=== PATIENT | female | born 1955 | race Caucasian/White ===

== ENCOUNTER 2017-08-16 16:29 | Inpatient (IN) | payer MEDICARE, MEDICAID ==
[2017-08-16 17:25] LABS: #Basophils 0.1 thou/uL (0.0-0.2); #Eosinphils 0.2 thou/uL (0.0-0.7); #Lymphocytes 1.9 thou/uL (1.20-3.40); #Monocytes 0.5 thou/uL (0.11-0.59); %Basophils 1.3 % (0.0-1.0); %Eosinophils 5.3 % (0.0-10.0); %Lymphocytes 40.6 % (21.0-51.0); %Monocytes 10.2 % (0.0-10.0); %Neutrophils 42.6 % (42.0-75.0); Hemoglobin 9.1 g/dL (12.0-16.0); Mean Corpuscular HGB CONC 35.4 g/dL (32.0-36.0); Mean Corpuscular Hemoglobin 34.1 pg (27.0-31.0); Mean Corpuscular Volume 96.5 fl (81.0-99.0); Mean Platelet Volume 5.4 fL (7.4-10.4); Platelet Count 133 thou/uL (130-400); RBC Distribution Width 13.9 % (11.5-14.5); Red Blood Cell (RBC) Count 2.67 mill/uL (4.20-5.40); White Blood Cell (WBC) Count 4.6 thou/uL (4.8-10.8)
--- NOTE | 2017-08-16 17:25 | CT ---
CT BRAIN NONCONTRAST: HISTORY: A 61-year-old female with altered mental status. FINDINGS: There is no midline shift or any other mass effect. There is no evidence of acute intracranial hemor rhage, large cortical infarct, obstructive hydrocephalus, or extraaxial fluid collection. The calvar ium is intact. There is diffuse parenchymal volume loss. There are low attenuation areas in the whi te matter. These are nonspecific, but in a patient of this age, they are probably chronic ischemic w cathleen matter changes due to microvascular atherosclerosis. IMPRESSION: 1) No acute intracranial findings. 2) Involutional changes and chronic ischemic white matter changes. jn [] POS: [facility]
--- NOTE | 2017-08-16 17:33 | RAD ---
RADIOGRAPH CHEST 1 VIEW: Supine. HISTORY: A 61-year-old female with altered mental status. FINDINGS: There is no air space density or pulmonary edema. The lateral costophrenic angles are sharp. Supine positioning makes this study insensitive for pneumothorax detection. IMPRESSION: No acute pulmonary findings. thanh [] POS: [facility]
[2017-08-16 17:41] LABS: ALT (SGPT) 10 U/L (8-55); AST (SGOT) 34 U/L (5-34); Acetaminophen Less than 6.0 mcg/mL (10.0-30.0); Albumin 3.2 g/dL (3.5-5.0); Alcohol Less than 10 mg/dL (Less than 10); Alkaline Phosphatase 78 U/L (40-150); Anion Gap 10 mmol/L (10-20); BUN (Urea Nitrogen) 10 mg/dL (9.8-20.1); Bilirubin, Total 0.7 mg/dL (0.2-1.2); CK (CPK) 446 U/L (29-168); Calc. Creatinine Clearance 0 mL/min (70-130); Calcium 8.4 mg/dL (7.8-10.44); Carbon Dioxide 29 mmol/L (22-29); Chloride 103 mmol/L (98-107); Estimated GFR-MDRD 15; Glucose 135 mg/dL (70-105); Lipase 39 U/L (8-78); Magnesium 1.9 mg/dL (1.6-2.6); Potassium 3.3 mmol/L (3.5-5.1); Protein, Total 6.2 g/dL (6.0-8.3); Salicylate Less than 8.0 mg/dL (15.0-30.0); Sodium 139 mmol/L (136-145)
[2017-08-16 17:44] LABS: CKMB 1.4 ng/mL (0-6.6); Troponin I 0.038 ng/mL (< 0.028)
[2017-08-16] MEDS ORDERED: Magnesium Sulfate 2 GM/100 ML BAG ONE (18:42)
[2017-08-16 19:14] LABS: Bilirubin Negative (Negative); Blood, Urine Trace (Negative); Clarity CLEAR (Clear); Glucose, Urine (Dipstick) Negative (Negative); Leukocyte Small (Negative); Nitrite Negative (Negative); Protein, Urine (Dipstick) 30 mg/dL (Neg-Trace); Specific Gravity, Urine 1.009 (1.002-1.036); Urobilinogen 0.2 mg/dL (0.2-1.0)
[2017-08-16 19:18] LABS: Bacteria/HPF 2+ HPF (None Seen); Hyaline Casts/LPF 0-3 HYALINE CAST LPF (0-3 Hyaline); Pathc Cast-AUWi Flag 0.29 (0-2.49); RBC/HPF 0-3 HPF (0-3); Squamous Epithelial 0-3 HPF (0-3)
[2017-08-16 19:25] LABS: Amphetamine Not Detected (NotDetected); Barbiturates Screen Not Detected (NotDetected); Benzodiazepine Screen Not Detected (NotDetected); Cocaine Metabolite Screen Not Detected (NotDetected); Medtox Control Line Valid? VALID (VALID); Medtox Reader # READER 4; Methadone Not Detected (NotDetected); Methamphetamine Not Detected (NotDetected); Opiate Screen Not Detected (NotDetected); Oxycodone Screen Not Detected (NotDetected); Phencyclidine (PCP) Not Detected (NotDetected); THC/Cannabinoid Screen Not Detected (NotDetected); Tricyclic Screen Not Detected (NotDetected)
[2017-08-16 21:14] LABS: Troponin I 0.037 ng/mL (< 0.028)
[2017-08-16 22:41] VITALS: BMI 25.7
[2017-08-17 00:03] LABS: Troponin I 0.041 ng/mL (< 0.028)
--- NOTE | 2017-08-17 11:24 | HP ---
REASON FOR ADMISSION/CHIEF COMPLAINT: Unresponsive. Change in mental status. HISTORY OF PRESENT ILLNESS: Ms. Forrest is a 61-year-old female with past medical history of end-stage renal disease on hemodialysis, hypertension, and depression who was sent from dialysis [facility] because she was not responding. The patient also has not been eating well in the last few days. T here is some change in medications. The patient was sent to the emergency room because of change in mental status. In the ER, the roberts chapelen t was evaluated. The patient was unresponsive, but labs were normal except for a urinary tract infec tion. She was hemodynamically stable. She is being admitted. She got a dose of Levaquin and being admitted for further evaluation and management. PAST MEDICAL HISTORY: 1. End-stage renal disease on hemodialysis. 2. Diabetes mellitus. 3. Hypertension. 4. Anxiety disorder. 5. Major depression. 6. History of hepatic encephalopathy. 7. Protein calorie malnutrition. 8. Dementia. PAST SURGICAL HISTORY: 1. Status post hysterectomy. 2. Status post mastectomy. 3. Status post AV shunt. CURRENT MEDICATIONS: The patient is on Coreg 6.25 daily, diltiazem 180 mg daily, Pravachol 10 mg mila ly, Renvela 3200 mg daily, Namenda 5 mg b.i.d. She is also on trazodone 50 b.i.d. and Depakote 500 b .i.d., recently started on Prozac 20 mg daily. Her Zoloft dose has been decreased from 50 to 25 alysha ng tapered and discontinued, also lactulose 20 grams q.2 days, Remeron 30 mg at bedtime. ALLERGIES: Questionable for PENICILLIN. FAMILY HISTORY: Nothing of interest. SOCIAL HISTORY: The patient is a resident of [facility]. No history of smoking. No hist ory of alcohol or drug abuse. REVIEW OF SYSTEMS: Unable to obtain because of change in mental status. PHYSICAL EXAMINATION: GENERAL: The patient is awake now, but not able to give any fruitful history. The patient is awake, not very alert. VITAL SIGNS: Temperature 98, pulse 70, respiration 20, blood pressure 130/60. HEENT: Head is normocephalic, atraumatic. Pupils equal and reactive. Nasopharynx is pale and dry. Hard and soft palate, no lesions. SKIN: Skin turgor decreased. NECK: Supple. No JVD. LUNGS: Bilateral air entry present, no rales, no rhonchi. CARDIAC: S1, S2 regular. ABDOMEN: Soft, no distention, no tenderness. Normal bowel sounds. RECTAL EXAM: Deferred. EXTREMITIES: No edema. NEUROLOGIC: The patient is awake, not very alert. Motor system power 4/5 in all extremities. Deep tendon reflexes 2+ bilaterally. Plantar downgoing. Sensory intact. LABORATORY AND X-RAY FINDINGS: CBC shows WBC 4.6, hemoglobin 9, hematocrit 26, platelets 133. Metab olic panel: Sodium 139, potassium 3.3, chloride 103, CO2 of 20, urea nitrogen 10, creatinine 3.1, gl ucose 135, CPK of 446. CK-MB 1.4, troponin I 0.038, serum ammonia level was 123. Urinalysis: WBC 7 -10, urine bacteria 2+, toxicology screen negative. Chest x-ray negative. EKG shows normal sinus rhythm, no acute ST-T wave changes seen. CT of the bra in, no acute infarct or hemorrhage, no intracranial pathology acute. ASSESSMENT: 1. Encephalopathy, metabolic, possibly hepatic. 2. Urinary tract infection. 3. End-stage renal disease on hemodialysis. 4. Diabetes mellitus. 5. Hypertension. 6. Depression. PLAN: 1. Vital signs q.4 hours. 2. Activity: As tolerated. 3. Allergies: PENICILLIN. 4. Continue [facility] medications. Hold trazodone and Depakote. Will give 2 doses of lactulose today. 5. Levaquin 750 q.2 days IV piggyback.
[2017-08-17 11:27] LABS: HBSAg Index 0.12 S/CO (0-0.99); Hep B Surf Ag Non-Reactive S/CO (NonReactive)
[2017-08-17] MEDS ORDERED: Vancomycin HCl 1 GM in Premix Bag 1 BAG IVPB SCH (13:30)
[2017-08-17 13:42] LABS: Sodium 138 mmol/L (136-145)
[2017-08-17] MEDS: Sevelamer Carbonate 800 MG TAB PO SCH (17:20)
[2017-08-17] MEDS: Artificial Tears 18 DROP/0.9 ML EA EYE SCH (20:05)
[2017-08-17] MEDS: Atorvastatin Calcium 10 MG TAB PO SCH (20:05)
[2017-08-17] MEDS: Carvedilol 3.125 MG TAB PO SCH (20:05)
[2017-08-17] MEDS: Mirtazapine 30 MG TAB PO SCH (20:05)
--- NOTE | 2017-08-17 22:32 | CON ---
DATE OF CONSULTATION: 08/17/2017 CONSULTING PHYSICIAN: Dr. David Chadwick. REASON FOR CONSULTATION: End-stage renal disease evaluation and care. REASON FOR ADMISSION: Altered mentation. HISTORY OF PRESENT ILLNESS: This is a 61-year-old white female with history of end-stage renal disea se, type 2 diabetes, hypertension who came to the hospital with altered mentation and Nephrology was consulted, maintain hemodialysis. The patient is feeling better. She was seen during dialysis. No nausea, vomiting. No shortness of breath or chest pain. PAST MEDICAL HISTORY: Positive for end-stage renal disease, type 2 diabetes, hypertension, anxiety, hepatic encephalopathy, dementia. PAST SURGICAL HISTORY: Hysterectomy, mastectomy, dialysis shunt placement. HOME MEDICATIONS: Coreg, Cardizem, Pravachol, Renvela, Namenda, trazodone, Prozac, Depakote, Zoloft. ALLERGIES: PENICILLINS. FAMILY HISTORY: No history of kidney disease. SOCIAL HISTORY: No smoking, alcohol, or illicit drug abuse. REVIEW OF SYSTEMS: Could not be obtained due to altered mentation. PHYSICAL EXAMINATION: GENERAL: This is a well-built female in no apparent distress. VITAL SIGNS: Temperature 98.7, pulse 81, respiratory rate 18, blood pressure 130/61. HEENT: Atraumatic, normocephalic. Oral mucosa is moist. NECK: Supple, no masses. CARDIOVASCULAR: S1, S2. Rate and rhythm regular. RESPIRATORY: Clear. GASTROINTESTINAL: Abdomen is soft. MUSCULOSKELETAL: 1+ edema. DERMATOLOGIC: No skin rash. NEUROLOGIC: Confused. PSYCHIATRIC: Not assessed. LABORATORY DATA: Hemoglobin is 9.1, potassium 3.3, BUN is 10, creatinine is 3.1. ASSESSMENT AND PLAN: 1. End-stage renal disease. Continue on dialysis Wednesday, Wednesday, and Wednesday if tolerated. 2. Edema controlled. 3. Hypertension, stable. 4. Anemia. Plan is to continue on dialysis as tolerated. Thank you for the consult.
[2017-08-18] MEDS: Sevelamer Carbonate 800 MG TAB PO SCH ×3 (08:37→16:54)
[2017-08-18] MEDS: Folic Acid/Vit B Comp W-C PO SCH (08:37)
[2017-08-18] MEDS: Cinacalcet HCl 30 MG TAB PO SCH (08:37)
[2017-08-18] MEDS: Carvedilol 3.125 MG TAB PO SCH ×2 (08:37→21:10)
[2017-08-18] MEDS: FLUoxetine HCl 20 MG CAP PO SCH (08:37)
[2017-08-18] MEDS: Artificial Tears 18 DROP/0.9 ML EA EYE SCH ×2 (08:38→21:10)
--- NOTE | 2017-08-18 17:25 | PRG ---
DATE OF SERVICE: 08/18/2017 SUBJECTIVE: Patient was seen and examined at bedside and overnight events noted. Patient denies any shortness of breath or chest pain or palpitation. No history of nausea or vomiting or diarrhea or f ever or chills or cramps. OBJECTIVE: GENERAL: This is a well-built female, slightly confused. VITAL SIGNS: Temperature 99.3, pulse 72, respiratory rate 18, blood pressure 121/56. HEENT: Atraumatic, normocephalic. Oral mucosa is moist. NECK: Supple. CARDIOVASCULAR: S1, S2 heard. Rate and rhythm regular. RESPIRATORY: Clear to auscultation. GASTROINTESTINAL: Abdomen is soft. MUSCULOSKELETAL: No tenderness. No edema. DERMATOLOGIC: No skin rash. NEUROLOGIC: Confused. PSYCHIATRIC: Mood and affect normal. LABORATORY: Not done today. ASSESSMENT AND PLAN: 1. End-stage renal disease. We will continue on dialysis as tolerated. 2. Edema, controlled. 3. Hypertension, stable. 4. Anemia. Monitor hemoglobin. 5. We will add Epogen with dialysis. 6. We will have dialysis as tolerated. We will follow.
[2017-08-18] MEDS: Mirtazapine 30 MG TAB PO SCH (21:09)
[2017-08-18] MEDS: Divalproex Sodium 250 MG (DR) TAB PO SCH (21:10)
[2017-08-18] MEDS: Atorvastatin Calcium 10 MG TAB PO SCH (21:10)
--- NOTE | 2017-08-19 09:01 | PRG ---
DATE OF SERVICE: 08/19/2017. SUBJECTIVE: Patient was seen and examined at bedside and overnight events noted. Patient denies any shortness of breath or chest pain or palpitation. No history of nausea or vomiting or diarrhea or f ever or chills or cramps. OBJECTIVE: GENERAL: This is a well-built female in no apparent distress. VITAL SIGNS: Temperature 98.4, pulse 71, respiratory 14, blood pressure 110/50. HEENT: Atraumatic, normocephalic. Oral mucosa is moist. NECK: Supple. CARDIOVASCULAR: S1, S2 heard. Rate and rhythm regular. RESPIRATORY: Clear to auscultation. GASTROINTESTINAL: Abdomen is soft. MUSCULOSKELETAL: No tenderness, no edema. DERMATOLOGIC: No skin rash. NEUROLOGIC: Alert and awake and oriented x3. No focal neurologic deficits. Moving all the extremit ies. PSYCHIATRIC: Mood and affect normal. LABORATORY DATA: Not done today. ASSESSMENT AND PLAN: 1. End-stage renal disease. Continue on hemodialysis, tolerated Wednesday, Wednesday, Wednesday, but marline ent is off schedule during this week. Plan is to have dialysis today and then continue dialysis , Wednesday, and Wednesday. 2. Edema, controlled. 3. Hypertension, stable. 4. Anemia. Continue Epogen. 5. Altered mental status, better. 6. Continue on dialysis as tolerated. The patient was seen during dialysis today.
[2017-08-19] MEDS: Sevelamer Carbonate 800 MG TAB PO SCH ×3 (10:10→16:34)
[2017-08-19] MEDS: Divalproex Sodium 250 MG (DR) TAB PO SCH (10:10)
[2017-08-19] MEDS: Carvedilol 3.125 MG TAB PO SCH ×2 (10:10→21:54)
[2017-08-19] MEDS: FLUoxetine HCl 20 MG CAP PO SCH (11:48)
[2017-08-19] MEDS: Cinacalcet HCl 30 MG TAB PO SCH (11:48)
[2017-08-19] MEDS: Folic Acid/Vit B Comp W-C PO SCH (11:48)
[2017-08-19] MEDS: Artificial Tears 18 DROP/0.9 ML EA EYE SCH ×2 (11:49→21:54)
[2017-08-19] MEDS: Atorvastatin Calcium 10 MG TAB PO SCH (21:54)
[2017-08-19] MEDS: Mirtazapine 30 MG TAB PO SCH (22:18)
[2017-08-20] MEDS: Sevelamer Carbonate 800 MG TAB PO SCH ×3 (08:00→17:39)
[2017-08-20] MEDS: Folic Acid/Vit B Comp W-C PO SCH (11:12)
[2017-08-20] MEDS: Cinacalcet HCl 30 MG TAB PO SCH (11:12)
[2017-08-20] MEDS: Carvedilol 3.125 MG TAB PO SCH ×2 (11:13→20:27)
[2017-08-20] MEDS: FLUoxetine HCl 20 MG CAP PO SCH (11:15)
[2017-08-20] MEDS: Artificial Tears 18 DROP/0.9 ML EA EYE SCH ×2 (11:15→21:06)
--- NOTE | 2017-08-20 14:30 | PRG ---
DATE OF SERVICE: 08/20/2017 SUBJECTIVE: Patient was seen and examined at bedside and overnight events noted. Patient denies any shortness of breath or chest pain or palpitation. No history of nausea or vomiting or diarrhea or f ever or chills or cramps. OBJECTIVE: GENERAL: This is a well-built female in no apparent distress. VITAL SIGNS: Temperature 98.0, pulse 75, respiratory rate 18, blood pressure 119/59. HEENT: Atraumatic, normocephalic. Oral mucosa is moist. NECK: Supple. CARDIOVASCULAR: S1, S2 heard. Rate and rhythm regular. RESPIRATORY: Clear to auscultation. GASTROINTESTINAL: Abdomen is soft. MUSCULOSKELETAL: No tenderness. No edema. DERMATOLOGIC: No skin rash. NEUROLOGIC: Alert and awake and oriented x3. No focal neurologic deficits. Moving all the extremiti es. PSYCHIATRIC: Mood and affect normal. LABORATORY DATA: Not done today. ASSESSMENT AND PLAN: 1. End-stage renal disease. Continue on hemodialysis as tolerated. 2. Edema, controlled. 3. Hypertension. 4. Anemia, chronic. . 5. Plan is to continue dialysis as tolerated.
[2017-08-20] MEDS: Mirtazapine 15 MG TAB PO SCH (20:27)
[2017-08-20] MEDS: Atorvastatin Calcium 10 MG TAB PO SCH (20:27)
[2017-08-20] MEDS: traZODone HCl 50 MG TAB PO SCH (20:27)
[2017-08-21] MEDS: Sevelamer Carbonate 800 MG TAB PO SCH ×3 (08:00→16:57)
--- NOTE | 2017-08-21 10:06 | PRG ---
DATE OF SERVICE: 08/21/2017 SUBJECTIVE: Patient was seen and examined at bedside and overnight events noted. Patient denies any shortness of breath or chest pain or palpitation. No history of nausea or vomiting or diarrhea or fever or chills or cramps. OBJECTIVE: GENERAL: This is a well-built female, in no apparent distress VITAL SIGNS: Temperature 97.9, pulse 62, respiratory rate 20, blood pressure 103/63. HEENT: Atraumatic, normocephalic. Oral mucosa is moist NECK: Supple CARDIOVASCULAR: S1, S2 heard, Rate and rhythm regular. RESPIRATORY: Clear to auscultation. GASTROINTESTINAL: Abdomen is soft. MUSCULOSKELETAL: No tenderness. No edema. DERMATOLOGIC: No skin rash. NEUROLOGIC: Alert and awake and oriented x3. No focal neurologic deficits. Moving all the extremit ies. PSYCHIATRIC: Mood and affect normal. LABORATORY DATA: No labs done today. ASSESSMENT AND PLAN: 1. End-stage renal disease, continue on hemodialysis Wednesday, Wednesday, Wednesday, starting Wednesday. 2. Edema, controlled. 3. Hypertension, stable. 4. Anemia, chronic, continue Epogen. The patient seen during dialysis, tolerating. We will continue on dialysis as tolerated.
[2017-08-21] MEDS: Artificial Tears 18 DROP/0.9 ML EA EYE SCH ×3 (10:35→21:16)
[2017-08-21] MEDS: Cinacalcet HCl 30 MG TAB PO SCH (11:40)
[2017-08-21] MEDS: FLUoxetine HCl 20 MG CAP PO SCH (11:40)
[2017-08-21] MEDS: Carvedilol 3.125 MG TAB PO SCH ×2 (11:40→21:14)
[2017-08-21] MEDS: Folic Acid/Vit B Comp W-C PO SCH (11:41)
[2017-08-21] MEDS ORDERED: Insulin Regular 300 UNITS/3 ML VIAL SC PRN (16:53)
[2017-08-21] MEDS ORDERED: Dextrose 50% Abboject 50 ML SYRINGE IVP PRN (16:53)
[2017-08-21] MEDS ORDERED: Dextrose 5% in Water 1,000 ML IV PRN (16:53)
[2017-08-21] MEDS: traZODone HCl 50 MG TAB PO SCH (21:14)
[2017-08-21] MEDS: Atorvastatin Calcium 10 MG TAB PO SCH (21:14)
[2017-08-21] MEDS: Mirtazapine 15 MG TAB PO SCH (21:14)
[2017-08-22 05:06] LABS: #Basophils 0.1 thou/uL (0.0-0.2); #Eosinphils 0.6 thou/uL (0.0-0.7); #Lymphocytes 2.9 thou/uL (1.20-3.40); #Monocytes 0.8 thou/uL (0.11-0.59); #Neutrophils 1.9 thou/uL (1.40-6.50); %Basophils 1.2 % (0.0-1.0); %Eosinophils 9.9 % (0.0-10.0); %Monocytes 12.8 % (0.0-10.0); Mean Corpuscular HGB CONC 35.7 g/dL (32.0-36.0); Mean Corpuscular Hemoglobin 34.3 pg (27.0-31.0); Mean Platelet Volume 6.4 fL (7.4-10.4); Platelet Count 127 thou/uL (130-400); RBC Distribution Width 13.3 % (11.5-14.5); Red Blood Cell (RBC) Count 2.93 mill/uL (4.20-5.40); White Blood Cell (WBC) Count 6.3 thou/uL (4.8-10.8)
[2017-08-22 05:09] LABS: ALT (SGPT) 15 U/L (8-55); AST (SGOT) 34 U/L (5-34); Albumin 3.1 g/dL (3.5-5.0); Alkaline Phosphatase 85 U/L (40-150); Anion Gap 13 mmol/L (10-20); BUN (Urea Nitrogen) 31 mg/dL (9.8-20.1); Bilirubin, Total 0.7 mg/dL (0.2-1.2); Calc. Creatinine Clearance 10 mL/min (70-130); Calcium 8.5 mg/dL (7.8-10.44); Carbon Dioxide 31 mmol/L (22-29); Chloride 102 mmol/L (98-107); Estimated GFR-MDRD 7; Globulin 2.9 g/dL (2.4-3.5); Glucose 120 mg/dL (70-105); Potassium 3.9 mmol/L (3.5-5.1); Sodium 142 mmol/L (136-145)
[2017-08-22] MEDS: Sevelamer Carbonate 800 MG TAB PO SCH ×3 (07:45→17:49)
[2017-08-22] MEDS: Artificial Tears 18 DROP/0.9 ML EA EYE SCH ×2 (07:48→22:01)
[2017-08-22] MEDS: Cinacalcet HCl 30 MG TAB PO SCH (08:00)
[2017-08-22] MEDS: Carvedilol 3.125 MG TAB PO SCH ×2 (08:00→21:29)
[2017-08-22] MEDS: FLUoxetine HCl 20 MG CAP PO SCH (08:00)
[2017-08-22] MEDS: Folic Acid/Vit B Comp W-C PO SCH (08:00)
[2017-08-22] MEDS ORDERED: Albumin 25% 25 GM/100 ML BOT IVPB SCH (11:30)
--- NOTE | 2017-08-22 12:42 | PRG ---
DATE OF SERVICE: 08/22/2017 SUBJECTIVE: Patient was seen and examined at bedside and overnight events noted. Patient denies any shortness of breath or chest pain or palpitation. No history of nausea or vomiting or diarrhea or fever or chills or cramps. OBJECTIVE: GENERAL: The patient is a well-built white female, in no apparent distress, feeling better. VITAL SIGNS: Temperature 97.9, pulse 74, respiratory rate 18, blood pressure 86/50. HEENT: Atraumatic, normocephalic. Oral mucosa is moist NECK: Supple CARDIOVASCULAR: S1, S2 heard. Rate and rhythm regular. RESPIRATORY: Clear to auscultation. GASTROINTESTINAL: Abdomen is soft. MUSCULOSKELETAL: No tenderness. No edema. DERMATOLOGIC: No skin rash. NEUROLOGIC: Alert and awake and oriented x3. No focal neurologic deficits. Moving all the extremit ies. PSYCHIATRIC: Mood and affect normal. LABORATORY DATA: Potassium is 3.9, BUN 31, creatinine 6.3. ASSESSMENT AND PLAN: 1. End-stage renal disease. We will continue on dialysis Wednesday, Wednesday, and Wednesday. No dialysi s today. 2. Hypotension and we will use albumin. I agree with holding blood pressure medicines if tolerated. 3. Edema, controlled. 4. Anemia. Continue Epogen with dialysis. Plan is to continue on dialysis as tolerated. We will use albumin.
[2017-08-22] MEDS: Mirtazapine 15 MG TAB PO SCH (20:42)
[2017-08-22] MEDS: traZODone HCl 50 MG TAB PO SCH (20:42)
[2017-08-22] MEDS: Atorvastatin Calcium 10 MG TAB PO SCH (20:42)
[2017-08-23] MEDS ORDERED: Epoetin (ESRD) 20,000 UNITS/ML IVP SCH (09:00)
[2017-08-23] MEDS: Sevelamer Carbonate 800 MG TAB PO SCH ×3 (09:23→17:07)
[2017-08-23] MEDS: Artificial Tear Sol 15 ML BOT EA EYE SCH ×2 (09:24→09:40)
[2017-08-23] MEDS: Folic Acid/Vit B Comp W-C PO SCH (09:26)
[2017-08-23] MEDS: Carvedilol 3.125 MG TAB PO SCH (09:26)
[2017-08-23] MEDS: Cinacalcet HCl 30 MG TAB PO SCH (09:26)
[2017-08-23] MEDS: FLUoxetine HCl 20 MG CAP PO SCH (09:27)
--- NOTE | 2017-08-23 10:27 | PRG ---
DATE OF SERVICE: 08/23/2017 SUBJECTIVE: Patient was seen and examined at bedside and overnight events noted. Patient denies any shortness of breath or chest pain or palpitation. No history of nausea or vomitin g or diarrhea or fever or chills or cramps. OBJECTIVE: GENERAL: This is a well-built female, in no apparent distress. VITAL SIGNS: Temperature 98.2, pulse 74, respiratory rate 18, blood pressure 119/74. HEENT: Atraumatic, normocephalic. Oral mucosa is moist. NECK: Supple. CARDIOVASCULAR: S1 and S2 heard. Rate and rhythm regular. RESPIRATORY: Clear to auscultation. GASTROINTESTINAL: Abdomen is soft. MUSCULOSKELETAL: No tenderness. No edema. DERMATOLOGIC: No skin rash. NEUROLOGIC: Alert and awake and oriented x3. No focal neurologic deficits. Moving all the extremit ies. PSYCHIATRIC: Mood and affect normal. LABORATORY DATA: Not done today. ASSESSMENT AND PLAN: 1. End-stage renal disease, continue on dialysis Wednesday, Wednesday, and Wednesday. 2. Hypotension, use albumin p.r.n. 3. Edema, controlled. 4. Anemia, continue Epogen with dialysis. 5. Hold blood pressure medicines. We will have dialysis as tolerated.
[2017-08-23 16:56] VITALS: BP 110/51; TEMP 98.1
--- NOTE | 2017-08-24 16:56 | PQF ---
[employer] Match Up Worker Crystal Reports Winform ViewerSAMMIE MEDEIRSO VENKAT R MD [id number] CLINICAL DOCUMENTATION CLARIFICATION FORM: POST DISCHARGE Addendum to original discharge summary date: ____ Late entry note date: __ Please exercise your independent, professional judgment in responding to the clarification form. Clinical indicators are provided on the bottom of this form for your review. PLEASE CLARIFY THE ACUITY OF THE PROTEIN CALORIE MALNUTRITION. THANK YOU Please check appropriate box(s): [ y] Protein Calorie Malnutrition: [ y] Mild [ ] Moderate [ ] Severe [ ] Other Malnutrition (please specify) __ [ ] Underweight without malnutrition [ ] Cachexia [ ] Other diagnosis [ ] Unable to determine In addition, please specify: Present on Admission (POA): [y ] Yes [ ] No [ ] Unable to determine CLINICAL INDICATORS - SIGNS / SYMPTOMS / LABS BMI of __24.8 Two or More of the Following: Unintentional Insufficient Energy Intake Weight Loss Loss of Muscle Mass Loss of Subcutaneous Fat Localized/Generalized Fluid Accumulation Diminished Handgrip Strength RISK FACTORS Change in appetite / nausea / vomiting / diarrhea Inability to consume adequate caloric intake Chronic illness -ESRD Medication TREATMENT: Dietary consult Nutritional supplements Appetite stimulant - medication SAP Match Up Worker Crystal Reports Winform Viewer Moderate Malnutrition (in acute illness) Energy Intake: <75% of estimated energy requirement for > 7 days Weight Loss: 1-2%/1 week; 5%/ 1 month; 7.5%/3 months Other: mild body fat loss; mild muscle mass loss; mild fluid accumulation; Severe Malnutrition (in acute illness) Energy Intake: < 50% of estimated energy requirement for > 5 days Weight Loss: >1-2%/1 week; >5%/1 month; >7.5%/3 months Other: moderate body fat loss; moderate muscle mass loss; moderate- severe fluid accumulation; measurably reduced infrastructure developer strength Moderate Malnutrition (in chronic illness) Energy Intake: <75% of estimated energy requirement for >1 month Weight Loss: 5%/1 month; 7.5%/3 months; 10%/6 months; 20%/1 year Other: mild body fat loss; mild muscle mass loss; mild fluid accumulation Severe Malnutrition (in chronic illness) Energy Intake: <75% of estimated energy requirement for >1 month Weight Loss: >5%/1 month; >7.5%/3 months; >10%/6 months; >20%/1 year Other: severe body fat loss; severe muscle mass loss; severe fluid accumulation ; measurably reduced infrastructure developer strength (This form is maintained as a part of the permanent medical record) 2014 [employer]. All Rights Reserved Caitlin [email or web address] [phone] MTDD
== END 2017-08-23 17:09 | DRG 441 ==
LOC: ERS 16:29 → 2NO 21:10 → 2SW 08-17 11:52 → 2NO 08-17 12:04 → T4-B 08-20 16:07
PROVIDERS: ADMIT Internal Medicine; ATTEND Internal Medicine
PROC: 5A1D70Z Performance of Urinary Filtration, Intermittent, Less than 6 Hours Per Day (ICD-10-PCS; principal; 2017-08-17)
PROC: 5A1D70Z Performance of Urinary Filtration, Intermittent, Less than 6 Hours Per Day (ICD-10-PCS; 2017-08-19)
PROC: 5A1D70Z Performance of Urinary Filtration, Intermittent, Less than 6 Hours Per Day (ICD-10-PCS; 2017-08-23)
DX: K72.90 Hepatic failure, unspecified without coma (principal); G93.41 Metabolic encephalopathy; N18.6 End stage renal disease; N39.0 Urinary tract infection, site not specified; I12.0 Hypertensive chronic kidney disease with stage 5 chronic kidney disease or end stage renal disease; E46 Unspecified protein-calorie malnutrition; E44.1 Mild protein-calorie malnutrition; B96.89 Other specified bacterial agents as the cause of diseases classified elsewhere; E11.22 Type 2 diabetes mellitus with diabetic chronic kidney disease; E11.65 Type 2 diabetes mellitus with hyperglycemia; F32.9 Major depressive disorder, single episode, unspecified; I95.9 Hypotension, unspecified; D63.1 Anemia in chronic kidney disease; F41.9 Anxiety disorder, unspecified; Z99.2 Dependence on renal dialysis; Z79.4 Long term (current) use of insulin; Z68.24 Body mass index [BMI] 24.0-24.9, adult
CPT/HCPCS: 36415; 36416; 51701; 70450; 71045; 80053; 80164; 80306; 80307; 81003; 81015; 82140; 82553; 83605; 83690; 83735; 84295; 84443; 84484; 85025; 87040; 87086; 87149; 87340; 90935; 93005; 94640; 94760; 96365; 96367; A4216; A4353; G0257; J1956; J3370; J3475; P9047; Q4081

== ENCOUNTER 2017-09-20 09:56 | Emergency (ER) | payer MEDICARE, MEDICAID ==
[2017-09-20 10:33] LABS: Bilirubin Negative (Negative); Blood, Urine Trace (Negative); Clarity CLEAR (Clear); Glucose, Urine (Dipstick) Negative (Negative); Leukocyte Moderate (Negative); Nitrite Negative (Negative); Protein, Urine (Dipstick) 100 mg/dL (Neg-Trace); Urobilinogen 0.2 mg/dL (0.2-1.0)
[2017-09-20 10:34] LABS: Bacteria/HPF None Seen HPF (None Seen); Hyaline Casts/LPF 0-3 HYALINE CAST LPF (0-3 Hyaline); Squamous Epithelial 0-3 HPF (0-3)
--- NOTE | 2017-09-20 10:34 | RAD ---
PORTABLE CHEST: History: Mental status change. FINDINGS: Lungs appear clear. No infiltrate. Heart size upper normal. Vascular markings are prominent. IMPRESSION: No acute finding. No change from prior exam of 08-16-17. POS: [facility]
[2017-09-20 10:42] LABS: Renal Epithelial None Seen HPF (0-3); Transitional Epithelial NONE SEEN HPF (0-3)
[2017-09-20 11:06] LABS: #Eosinphils 0.1 thou/uL (0.0-0.7); #Monocytes 0.5 thou/uL (0.11-0.59); #Neutrophils 3.1 thou/uL (1.40-6.50); %Basophils 0.6 % (0.0-1.0); %Eosinophils 1.2 % (0.0-10.0); %Lymphocytes 34.7 % (21.0-51.0); %Monocytes 9.1 % (0.0-10.0); %Neutrophils 54.4 % (42.0-75.0); Hemoglobin 11.6 g/dL (12.0-16.0); Mean Corpuscular HGB CONC 35.2 g/dL (32.0-36.0); Mean Corpuscular Hemoglobin 34.3 pg (27.0-31.0); Mean Corpuscular Volume 97.5 fL (78.0-98.0); Mean Platelet Volume 6.3 fL (7.4-10.4); Platelet Count 171 thou/uL (130-400); RBC Distribution Width 13.2 % (11.5-14.5); Red Blood Cell (RBC) Count 3.37 mill/uL (4.20-5.40); White Blood Cell (WBC) Count 5.7 thou/uL (4.8-10.8)
--- NOTE | 2017-09-20 11:18 | CT ---
CT HEAD WITHOUT CONTRAST: Multiple axial tomograms are obtained through the head without IV enhancement. INDICATION: Mental status change. COMPARISON: 08/16/17. FINDINGS: The ventricles have normal size and position. No evidence of intracranial mass or hemorrhage. No ev idence of cortical infarct. There are mild to moderate chronic ischemic white matter changes which a ppear stable. IMPRESSION: No acute finding or significant interval change. POS: [facility]
[2017-09-20 11:26] LABS: ALT (SGPT) 14 U/L (8-55); AST (SGOT) 25 U/L (5-34); Albumin 3.5 g/dL (3.4-4.8); Alkaline Phosphatase 77 U/L (40-150); Anion Gap 14 mmol/L (10-20); BUN (Urea Nitrogen) 46 mg/dL (9.8-20.1); Bilirubin, Total 1.4 mg/dL (0.2-1.2); Calc. Creatinine Clearance 0 mL/min (70-130); Calcium 8.5 mg/dL (7.8-10.44); Carbon Dioxide 24 mmol/L (23-31); Chloride 108 mmol/L (98-107); Estimated GFR-MDRD 5; Globulin 2.8 g/dL (2.4-3.5); Glucose 135 mg/dL (80-115); Potassium 3.9 mmol/L (3.5-5.1); Protein, Total 6.3 g/dL (6.0-8.3); Sodium 142 mmol/L (136-145)
== END 2017-09-20 15:52 ==
LOC: ERS 09:56
DX: N39.0 Urinary tract infection, site not specified (principal); R41.82 Altered mental status, unspecified; I12.0 Hypertensive chronic kidney disease with stage 5 chronic kidney disease or end stage renal disease; E11.22 Type 2 diabetes mellitus with diabetic chronic kidney disease; E78.5 Hyperlipidemia, unspecified; F41.9 Anxiety disorder, unspecified; F31.9 Bipolar disorder, unspecified; N18.6 End stage renal disease; Z99.2 Dependence on renal dialysis; Z86.74 Personal history of sudden cardiac arrest; Z79.899 Other long term (current) drug therapy
CPT/HCPCS: 36415; 51701; 70450; 71045; 80053; 81003; 81015; 83605; 85025; 87040; 87086; 93005; 96361; 96365; A4353; J1956

== ENCOUNTER 2017-09-22 12:21 | Inpatient (IN) | payer MEDICARE, MEDICAID ==
--- NOTE | 2017-09-22 13:25 | CT ---
CT HEAD NONCONTRAST: Date: 09/22/17 CLINICAL HISTORY: Altered mental status. FINDINGS: There is mild chronic microvascular ischemic disease. No ventriculomegaly, mass effect, midline shift , or acute intracranial hemorrhage. There is no fluid level of the imaged paranasal sinuses. IMPRESSION: 1. No acute intracranial hemorrhage or mass effect. 2. Mild to moderate chronic microvascular ischemic disease. 3. No significant interval change when compared to 09/20/17 exam. POS: [facility]
--- NOTE | 2017-09-22 13:27 | RAD ---
PORTABLE CHEST: HISTORY: Altered mental status. Patient at dialysis became unresponsive. COMPARISON: 09/20/17 study. FINDINGS: Heart size appears slightly enlarged. Mediastinal structures are unremarkable. The lungs are clear of infiltrates. No signs of failure. IMPRESSION: Mild cardiomegaly. POS: [facility]
[2017-09-22 13:46] LABS: #Basophils 0.1 thou/uL (0.0-0.2); #Eosinphils 0.1 thou/uL (0.0-0.7); #Monocytes 0.6 thou/uL (0.11-0.59); #Neutrophils 3.3 thou/uL (1.40-6.50); %Eosinophils 1.9 % (0.0-10.0); %Lymphocytes 32.7 % (21.0-51.0); %Monocytes 9.9 % (0.0-10.0); %Neutrophils 54.6 % (42.0-75.0); Hemoglobin 11.1 g/dL (12.0-16.0); Mean Corpuscular HGB CONC 34.6 g/dL (32.0-36.0); Mean Corpuscular Hemoglobin 34.7 pg (27.0-31.0); Mean Platelet Volume 6.9 fL (7.4-10.4); Platelet Count 157 thou/uL (130-400); RBC Distribution Width 12.8 % (11.5-14.5); Red Blood Cell (RBC) Count 3.21 mill/uL (4.20-5.40); White Blood Cell (WBC) Count 6.1 thou/uL (4.8-10.8)
[2017-09-22 13:59] LABS: ALT (SGPT) 13 U/L (8-55); AST (SGOT) 26 U/L (5-34); Albumin 3.5 g/dL (3.4-4.8); Alkaline Phosphatase 73 U/L (40-150); Anion Gap 16 mmol/L (10-20); BUN (Urea Nitrogen) 63 mg/dL (9.8-20.1); Bilirubin, Total 1.6 mg/dL (0.2-1.2); Calc. Creatinine Clearance 0 mL/min (70-130); Calcium 8.5 mg/dL (7.8-10.44); Carbon Dioxide 19 mmol/L (23-31); Chloride 117 mmol/L (98-107); Estimated GFR-MDRD 4; Globulin 2.5 g/dL (2.4-3.5); Glucose 158 mg/dL (80-115); Sodium 148 mmol/L (136-145)
[2017-09-22 14:55] LABS: Bilirubin Negative (Negative); Blood, Urine Trace (Negative); Clarity CLEAR (Clear); Glucose, Urine (Dipstick) Negative (Negative); Leukocyte Small (Negative); Nitrite Negative (Negative); Protein, Urine (Dipstick) 100 mg/dL (Neg-Trace); Specific Gravity, Urine 1.011 (1.002-1.036); Urobilinogen 0.2 mg/dL (0.2-1.0); pH, Urine 7.5 (5.0-9.0)
[2017-09-22 14:58] LABS: Bacteria/HPF None Seen HPF (None Seen); Hyaline Casts/LPF 4-6 HYALINE CAST LPF (0-3 Hyaline); Pathc Cast-AUWi Flag 0.87 (0-2.49); RBC/HPF 0-3 HPF (0-3); Squamous Epithelial 0-3 HPF (0-3); WBC/HPF 21-50 HPF (0-3)
--- NOTE | 2017-09-23 06:01 | HP ---
DATE OF ADMISSION: 09/22/2017 REASON FOR ADMISSION AND CHIEF COMPLAINT: Altered mental status. HISTORY OF PRESENT ILLNESS: Ms. Forrest is a 62-year-old, white female with past medical history of end-stage renal disease on hemodialysis, hypertension, who was brought in because of change in mental status, and patient has been having this problem for the last 2-3 days. She was seen in the ER 2 days ago and released after evaluation. Patient was confused and with mental status, so she was sent from dialysis. In the ER, patient was evaluated and found to be very confused and also was found to have urinary tract infection and elevated ammonia level. Patient received IV fluid bolus 500 mL and lactulose one dose. Patient is admitted for further evaluation. Patient was recently in the hospital with altered mental status secondary to ammonemia. PAST MEDICAL HISTORY: 1. End-stage renal disease, on hemodialysis. 2. Diabetes mellitus. 3. Hypertension. 4. Anxiety disorder. 5. History of encephalopathy secondary to ammonemia. 6. Protein-calorie malnutrition. 7. Dementia. PAST SURGICAL HISTORY: 1. Status post hysterectomy. 2. Status post mastectomy. 3. Status post AV stent. CURRENT MEDICATIONS: Patient is on folic acid 1 mg daily, pravastatin 10 mg daily, Namenda 5 mg daily, , trazodone 50 at bedtime, Sensipar 30 mg daily, Remeron 15 mg at bedtime, Prozac 20 mg daily, lactulose 20 grams every other day , and Procrit p.r.n. ALLERGIES: No known drug allergies. FAMILY HISTORY: Nothing of interest. SOCIAL HISTORY: Patient lives in the long-term. No history of smoking. No history of alcohol intake. REVIEW OF SYSTEMS: Unable to obtain. Patient is confused and unable to give any history. PHYSICAL EXAMINATION: VITAL SIGNS: Temperature 98, pulse 70, respirations 20, blood pressure 120/80. HEENT: Head is normocephalic, atraumatic. Pupils equal and reactive to light. Nasopharynx is pale and dry, hard and soft palate, no lesions seen. SKIN: Skin turgor decreased. NECK: Supple. No JVD. LUNGS: Breath sounds diminished bilaterally. Percussion not dull bilaterally. No rales, no rhonchi. CARDIAC: S1, S2 regular. ABDOMEN: Soft, no distention, no tenderness. Normal bowel sounds. RECTAL: Deferred. CENTRAL NERVOUS SYSTEM: Patient is awake, but not very alert and not oriented. MOTOR SYSTEM: Patient moves all extremities. Deep tendon reflexes 2+ bilaterally. Plantar downgoing. Sensory intact. LABORATORY AND X-RAY FINDINGS: CBC shows WBC 6, hemoglobin 11, hematocrit 32, platelets 157. Metabolic panel: Sodium 148, potassium 4, chloride 117, CO2 of 19, BUN 63, creatinine 1.9, glucose 158. Ammonia level 96. BNP 1267. Urinalysis revealed wbc 21-50, bacteria none. Chest x-ray negative. ASSESSMENT: 1. Acute metabolic encephalopathy possibly due to elevated ammonia. 2. Urinary tract infection. 3. End-stage renal disease, on hemodialysis. 4. Hypertension. 5. Diabetes mellitus. 6. Dementia. PLAN: 1. Vital signs q.4 hours. 2. Activity: As tolerated. 3. Allergies: NKDA. 4. Hep-Lock. 5. Lactulose 20 grams b.i.d. 6. List her long-term medications. 7. Rocephin 1 gram IV piggyback daily. 8. We will continue her long-term medication. [facility]
[2017-09-23] MEDS ORDERED: cefTRIAXone\\ROCEPHIN 1 GM in Sodium Chloride 0.9% 100 ML IVPB SCH (09:15)
[2017-09-23] MEDS: Dextrose 5 %-0.45 % NaCl 1,000 ML IV SCH (20:18)
--- NOTE | 2017-09-24 09:00 | CON ---
DATE OF CONSULTATION: 09/23/2017 CONSULTING PHYSICIAN: David Chadwick MD REASON FOR CONSULTATION: End-stage renal disease evaluation. REASON FOR ADMISSION: Altered mentation. HISTORY OF PRESENT ILLNESS: A 62-year-old female with a history of end-stage renal disease, type 2 diabetes, hypertension who came to the hospital with altered mentation. Nephrology was consulted for maintenance hemodialysis. She gets dialysis Wednesday, Wednesday, Wednesday. No fever or chills. No nausea, vomiting. No chest pain reported. PAST MEDICAL HISTORY: Possible end-stage renal disease, type 2 diabetes, hypertension, anxiety, encephalopathy, protein energy malnutrition, dementia. PAST SURGICAL HISTORY: Hysterectomy, mastectomy, AV fistula placement. HOME MEDICATIONS: Folic acid, pravastatin, Namenda, trazodone, Sensipar, Remeron, Prozac, lactulose, Procrit. ALLERGIES: No known drug allergies. SOCIAL HISTORY: No smoking, alcohol, or illicit drug abuse. She lives in a senior care. FAMILY HISTORY: No history of any kidney disease. REVIEW OF SYSTEMS: Unable to obtain as the patient is confused. PHYSICAL EXAMINATION: GENERAL: This is a well-built female in no apparent distress. VITAL SIGNS: Temperature 98.4, pulse 75, respiratory rate 18, blood pressure 134/80. HEENT: Atraumatic, normocephalic. Oral mucosa is moist. NECK: Supple. No masses. CARDIOVASCULAR: S1, S2 heard. Rate and rhythm regular. RESPIRATORY: Clear. ABDOMEN: Soft. MUSCULOSKELETAL: 1+ edema. DERMATOLOGIC: No skin rash. NEUROLOGIC: Confused. LABORATORY DATA: Hemoglobin is 11.1. BUN is 63, creatinine is 9.01. ASSESSMENT AND PLAN: 1. End-stage renal disease. Continue dialysis as tolerated. 2. Edema, controlled. 3. Hypertension. Titrate medications. 4. Anemia, stable. Plan is to continue on dialysis Wednesday, Wednesday, and Wednesday as tolerated. MTDD
[2017-09-24] MEDS ORDERED: hydrALAZINE 20 MG/ML VIAL SLOW IVP PRN (09:44)
--- NOTE | 2017-09-24 13:46 | PRG ---
DATE OF SERVICE: 09/24/2017. SUBJECTIVE: The patient remains confused and not able to give good history. OBJECTIVE: GENERAL: This is an elderly female, confused. VITAL SIGNS: Temperature 98.4, pulse 72, respiratory rate 16, blood pressure 163/77. NEUROLOGIC: Confused. Musculoskeletal : No tenderness, No edema HEENT: Atraumatic normocephalic Neck: Supple Cardiovascular: S1S2 heard, Rate and rhythm regular Respiratory: Clear to auscultation Gastrointestinal: Abdomen is soft Dermatologic : No skin rash LABORATORY DATA: Not done today. ASSESSMENT AND PLAN: 1. End-stage renal disease. We will continue on dialysis. 2. Edema, remove fluid with HD if tolerated. 3. Hypertension, will monitor. 4. Anemia. Monitor. 5. Altered mentation We will continue dialysis as tolerated on Wednesday, Wednesday, and Wednesday. MTDD
[2017-09-24] MEDS: Dextrose 5 %-0.45 % NaCl 1,000 ML IV SCH (15:43)
[2017-09-24] MEDS ORDERED: Lorazepam 2 MG/ML VIAL ONE (18:27)
[2017-09-24] MEDS ORDERED: Ventilator Sedation Protocol 1 EACH FS SCH (18:46)
[2017-09-24] MEDS ORDERED: Propofol 1,000 MG/100 ML VIAL IV ONE (18:53)
[2017-09-24] MEDS ORDERED: fentaNYL Citrate/PF 2,000 MCG in Sodium Chloride 0.9% 60 ML IV SCH (19:02)
[2017-09-24] MEDS ORDERED: Lorazepam 2 MG/ML VIAL SLOW IVP PRN (19:02)
[2017-09-24] MEDS ORDERED: Propofol 1,000 MG/100 ML VIAL IV PRN (19:02)
[2017-09-24] MEDS ORDERED: DISCONTINUE PREVIOUS NARCOTIC PAIN MEDICATIONS AND BENZODIAZEPINES FS SCH (19:02)
[2017-09-24] MEDS ORDERED: Fentanyl BOLUS 250 ML IVPB PRN (19:02)
[2017-09-24] MEDS ORDERED: Propofol BOLUS 1,000 MG/100 ML VIAL IV PRN (19:02)
[2017-09-24 19:08] LABS: Hemoglobin 12.1 g/dL (12.0-16.0); Mean Corpuscular Volume 99.9 fL (78.0-98.0); Platelet Count 188 thou/uL (130-400); RBC Distribution Width 12.7 % (11.5-14.5); Red Blood Cell (RBC) Count 3.57 mill/uL (4.20-5.40); White Blood Cell (WBC) Count 18.3 thou/uL (4.8-10.8)
[2017-09-24 19:21] LABS: CO2 Tension 31.4 mmHg (35.0-45.0); pH, Arterial 7.35 (7.35-7.45)
[2017-09-24 19:22] LABS: Base Excess (BEa) -7.5 mEq/L (-2.0 to +3.0); O2 Tension (PaO2) 527.2 mmHg (> 80.0)
[2017-09-24 19:23] LABS: Analyzer IN Cardio ER; Calcium, Ionized 1.1 mmol/L (1.12-1.30); Hematocrit-ABG 35.6 % (36.0-47.0); Hemoglobin (Hb) 11.8 g/dL (12.0-16.0); Puncture Site RRAD
[2017-09-24 19:24] LABS: ALT (SGPT) 15 U/L (8-55); AST (SGOT) 35 U/L (5-34); Albumin 3.9 g/dL (3.4-4.8); Alkaline Phosphatase 79 U/L (40-150); Anion Gap 28 mmol/L (10-20); BUN (Urea Nitrogen) 19 mg/dL (9.8-20.1); Bilirubin, Total 2.2 mg/dL (0.2-1.2); Calc. Creatinine Clearance 16 mL/min (70-130); Carbon Dioxide 12 mmol/L (23-31); Chloride 105 mmol/L (98-107); Eosinophils 2 % (0-10); Estimated GFR-MDRD 12; Globulin 3.1 g/dL (2.4-3.5); Glucose 136 mg/dL (80-115); Lymphocytes 53 % (21-51); MDiff Complete? YES; Magnesium 1.9 mg/dL (1.6-2.6); Monocytes 3 % (0-10); Neutrophil 42 % (42-75); PLT Morphology Comment Appears Adequate; Potassium 3.1 mmol/L (3.5-5.1); RBC Morphology Normal; Sodium 142 mmol/L (136-145)
[2017-09-24 19:26] LABS: CKMB 3.1 ng/mL (0-6.6)
--- NOTE | 2017-09-24 19:40 | RAD ---
PORTABLE AP CHEST X-RAY 09/24/17 HISTORY: Code blue, endotracheal tube placement. COMPARISON: 09/22/17. FINDINGS: There has been interval placement of endotracheal tube with the tip overlying the T5 vertebral body a nd above the level of the rosina. There has been interval placement of the nasogastric tube which is coiled overlying the left upper quadrant. The cardiac silhouette and pulmonary vasculature are within normal limits. The lungs are clear. there has been no interval change from prior exam. IMPRESSION: Interval placement of an endotracheal tube and nasogastric tube otherwise stable chest. POS: [facility]
--- NOTE | 2017-09-24 20:17 | CT ---
CT OF BRAIN PERFORMED WITHOUT CONTRAST ENHANCEMENT: 09/24/17 HISTORY: Seizure. COMPARISON: 09/22/17 study. Ventricular and cisternal system shows minimal atrophy. There is chronic white matter changes again n oted. There is no signs of intracerebral hemorrhage or extra-axial fluid collections. Mastoid air horace ls and visualized sinuses are clear. IMPRESSION: No acute intracranial abnormalities. POS: [facility]
[2017-09-24] MEDS ORDERED: Carvedilol 6.25 MG TAB PO SCH (21:00)
[2017-09-24] MEDS ORDERED: Pravastatin Sodium 20 MG TAB PO SCH (21:00)
[2017-09-24] MEDS ORDERED: Labetalol HCl 100 MG/20 ML VIAL SLOW IVP PRN (21:34)
[2017-09-24] MEDS: Cefepime 1 GM in Sodium Chloride 0.9% 100 ML IVPB SCH (22:54)
[2017-09-24 23:39] LABS: Lactic Acid 7.1 mmol/L (0.5-2.2)
--- NOTE | 2017-09-25 02:53 | PRG-2 ---
DATE OF SERVICE: 09/24/2017 RESIDENT: Anderson Garza M.D. ATTENDING: Sumeet Dawson D.O. EVENT: Code blue. EVENT IN DETAIL: Resident responded to code blue page that occurred overhead at 1825 hours at dialysis. When I arrived to the dialysis unit, the patient was actively seizing. Report from nursing stated that the patient had undergone approximately 3-1/2 hours of hemodialysis. Labs were all unremarkable and appropriate for end-stage renal patient. Nursing staff reported that the patient has had a similar experience with dialysis. An order for Ativan 2 mg IV push was given. The patient was nonresponsive and still seizing, decision was made to intubate for airway protection and mechanical ventilation. Dr. Dawson arrived prior to the intubation and was directly supervising during the intubation. In addition to the Ativan, the patient was paralyzed with rocuronium 60 mg fast IV push. A bougie catheter was inserted through the vocal cords under direct visualization and a 7.5 endotracheal tube was slid over the catheter to the level of 22 cm. Placement was verified with auscultation of the chest and color change capnography, both of which were positive. A post-procedure chest x-ray reveals endotracheal tube in adequate placement above the level of the rosina. An order for CBC, CMP, cardiac enzymes, lactic acid, ammonia level and prolactin were given. The patient was then transferred to the critical care unit for mechanical ventilation. Initial arterial blood gas revealed a pH of 7.35, pCO2 of 31.4, pO2 of 527 on 100% FiO2. After the blood gas was drawn, the respiratory therapist decreased the FiO2 to 40%. CT of the brain was ordered and showed no acute intracranial processes. PERTINENT LABORATORY FINDINGS: White count of 18.3 with no left shift. Potassium of 3.1. Lactic acid of 14.1. Ammonia level of 143, which was consistent with the previous level drawn earlier today. Dr. Chadwick is the patient's primary care provider in the hospital and was contacted by nursing staff. I personally called Dr. Valencia who was the on-call critical care finishing room operator and updated him on the patient's status. Dr. Valencia was in agreement with the care plan and stated he would see the patient in the morning unless he needed to see her sooner. [facility]
[2017-09-25 04:17] LABS: Anion Gap 18 mmol/L (10-20); BUN (Urea Nitrogen) 27 mg/dL (9.8-20.1); Calc. Creatinine Clearance 11 mL/min (70-130); Calcium 9.1 mg/dL (7.8-10.44); Carbon Dioxide 24 mmol/L (23-31); Chloride 102 mmol/L (98-107); Estimated GFR-MDRD 8; Glucose 137 mg/dL (80-115); Potassium 3.9 mmol/L (3.5-5.1); Sodium 140 mmol/L (136-145)
[2017-09-25 04:39] LABS: #Lymphocytes 2.1 thou/uL (1.20-3.40); #Neutrophils 6.1 thou/uL (1.40-6.50); %Basophils 0.5 % (0.0-1.0); %Eosinophils 0.3 % (0.0-10.0); %Lymphocytes 22.8 % (21.0-51.0); %Monocytes 10.5 % (0.0-10.0); %Neutrophils 65.9 % (42.0-75.0); Hemoglobin 12.1 g/dL (12.0-16.0); Mean Corpuscular HGB CONC 34.6 g/dL (32.0-36.0); Mean Corpuscular Hemoglobin 34.1 pg (27.0-31.0); Mean Corpuscular Volume 98.6 fL (78.0-98.0); Mean Platelet Volume 7.2 fL (7.4-10.4); Platelet Count 146 thou/uL (130-400); RBC Distribution Width 12.9 % (11.5-14.5); Red Blood Cell (RBC) Count 3.54 mill/uL (4.20-5.40); White Blood Cell (WBC) Count 9.2 thou/uL (4.8-10.8)
[2017-09-25] MEDS: Dextrose 5 %-0.45 % NaCl 1,000 ML IV SCH (06:06)
[2017-09-25 08:01] LABS: pH, Arterial 7.62 (7.35-7.45)
[2017-09-25 08:02] LABS: Actual Bicarbonate (HCO3a) 26.3 mEq/L (22-28); Base Excess (BEa) 5.8 mEq/L (-2.0 to +3.0); CO2 Tension 26.4 mmHg (35.0-45.0); O2 Tension (PaO2) 62.5 mmHg (> 80.0)
[2017-09-25 08:04] LABS: Hemoglobin (Hb) 12.1 g/dL (12.0-16.0); Puncture Site RBA
[2017-09-25] MEDS: Cefepime 1 GM in Sodium Chloride 0.9% 100 ML IVPB SCH ×2 (09:18→22:37)
--- NOTE | 2017-09-25 11:15 | EKG ---
Test Reason : Blood Pressure : / mmHG Vent. Rate : 069 BPM Atrial Rate : 069 BPM P-R Int : 166 ms QRS Dur : 088 ms QT Int : 454 ms P-R-T Axes : 055 024 101 degrees QTc Int : 486 ms Normal sinus rhythm Left ventricular hypertrophy with repolarization abnormality Abnormal ECG No ST elevation/NM Confirmed by THEA Henderson, JYOTHI ([id number]), index editor REGINA HERNANDES ([id number]) on 09/25/2017 11:14:40 AM Referred By: Confirmed By:JYOTHI SIDHU M.D.
--- NOTE | 2017-09-25 11:47 | PRG ---
DATE OF SERVICE: 09/25/2017 NEPHROLOGY PROGRESS NOTE SUBJECTIVE: Patient was seen and examined at ICU. The patient remains intubated and not well built. OBJECTIVE: GENERAL: A well-built female, seen in ICU, intubated. VITAL SIGNS: Temperature 98.7, pulse 73, respiratory rate 18, blood pressure 133/65. HEENT: Intubated. CARDIOVASCULAR: S1, S2 heard. Rate and rhythm regular. RESPIRATORY: Clear. GASTROINTESTINAL: Abdomen is soft. MUSCULOSKELETAL: 1+ edema. DERMATOLOGIC: No rash. NEUROLOGIC: Intubated, sedated. LABORATORY DATA: Potassium is 3.9, BUN 27, creatinine is 5.5. ASSESSMENT AND PLAN: 1. End-stage renal disease, continue on hemodialysis Wednesday, Wednesday, and Wednesday. 2. Edema, controlled. 3. Hypertension, stable. 4. Anemia. 5. Altered mentation. 6. Acute respiratory failure. 7. Intubated. 8. We will follow. We will continue dialysis Wednesday, Wednesday, and Wednesday as tolerated.
--- NOTE | 2017-09-25 17:23 | CON ---
DATE OF CONSULTATION: 09/24/2017 REFERRING PROVIDER: Dr. David Chadwick. REASON FOR CONSULTATION: Altered mental status. HISTORY OF PRESENT ILLNESS: Ms. Forrest is a pleasant 62-year-old -[place] female, who has bee n considered for evaluation of altered mental status. History is obtained from patient's medical marlon rt as patient unable to provide and there are no family member present at bedside. The patient has a history of hypertension, diabetes, end-stage renal disease on dialysis, was brought into the [facility] with confusion and changes in mentation. She was, in fact, seen in the ER 2 days prior to this admission for similar symptoms and at that time, she was found to have a urinary tract infect ion and an elevated ammonia level. She was treated with lactulose and antibiotics and discharged barbara e. Her symptoms had improved somewhat; however, she presented back again as her symptoms were contin ued to get worse. PAST MEDICAL HISTORY: Reviewed and they are as dictated in H&P note done by Dr. David Cahdwick. PAST SURGICAL HISTORY: Reviewed and they are as dictated in H&P note done by Dr. David Chadwick. FAMILY HISTORY: Reviewed and they are as dictated in H&P note done by Dr. David Chadwick. SOCIAL HISTORY: Reviewed and they are as dictated in H&P note done by Dr. David Chadwick. CURRENT MEDICATION: Reviewed and they are as dictated in H&P note done by Dr. David Chadwick. ALLERGIES: Reviewed and they are as dictated in H&P note done by Dr. David Chadwick. REVIEW OF SYSTEMS: Unable to perform. PHYSICAL EXAMINATION: VITAL SIGNS: Blood pressure 163/77, pulse of 72, temperature of 98.4, respirations of 16, O2 sats of 99% on room air. GENERAL: Obtunded -[place] female, in no apparent distress. RESPIRATORY: Clear to auscultation bilaterally. CARDIOVASCULAR: Regular rate and rhythm. NEUROLOGIC: Mental status: The patient is obtunded. She grimaces to verbal and noxious stimuli. S he does not follow any commands. Cranial nerves: Pupils are 3 mm and reactive. Face appears symmet dyan. The rest of the cranial nerve exam could not be performed as the patient is not able to comply. Motor exam showed normal tone and bulk. She spontaneously moves both upper and lower extremities. Sensory: Diminished sensation in both upper and lower extremities. Deep tendon reflexes 1+ reflex in both upper and lower extremities. Babinski: Plantar responses equivocal bilaterally. Gait, Romb erg and coordination could not be tested. LABORATORY DATA: Labs are reviewed, which included CBC, CMP, lactic acid, ammonia level which is sig nificant for hemoglobin of 12.1, hematocrit of 34.9, lactic acid of 14.1, ammonia level of 144, BNP o f 2486.1, otherwise unremarkable. IMAGING STUDIES: CT head without contrast which showed no acute intracranial abnormality. IMPRESSION: 1. Altered mental status, likely toxic metabolic encephalopathy. 2. Hyperlipidemia. ASSESSMENT AND PLAN: Ms. Forrest is a pleasant 62-year-old -[place] female with multiple medic al problems, who presented with confusion and altered mental status. She is found to have high level s of ammonia, which may be contributing to her confusion and decreased level of alertness. At this t adeline, we will recommend continuing lactulose. Thank you for consultation.
--- NOTE | 2017-09-25 19:25 | CON ---
DATE OF CONSULTATION: 09/25/2017 HISTORY OF PRESENT ILLNESS: Lindsey Forrest is a 62-year-old female, apparently demented. She is intu bated on the vent. Apparently, in dialysis yesterday, she seized and was intubated by Family Caroline aponte. She was transferred to the ICU. Her primary care physician has not seen her. Apparently, some c onversation occurred over the phone. She has been in the hospital since the . She presented with altered mental status and worsening renal failure. She has a longstanding history of mental problems. PAST MEDICAL HISTORY: Depression; renal failure, on dialysis; hypertension; substance abuse; noncomp liance. PAST SURGICAL HISTORY: Hysterectomy; mastectomy access. MEDICATIONS: Her list of medicine from home includes trazodone 50, Zoloft 100, Pravachol 10, Namenda 5, insulin, Cardizem 180, Coreg 6.25. ALLERGIES: PENICILLIN History of substance abuse from previous medical records. Alcohol unknown. Tobacco unknown. No family members here. REVIEW OF SYSTEMS: Otherwise unobtainable. PHYSICAL EXAMINATION: VITAL SIGNS: Pulse 77, blood pressure 124/68, sats 100%, respirations 14. GENERAL: She was on Diprivan, this has been withheld. She moves all 4 extremities. Encephalopathic . CHEST: Decreased breath sounds without any wheezing. CARDIAC: Normal S1 and S2. No gallops. ABDOMEN: Soft. NEUROLOGIC: She moves all 4 extremities. EXTREMITIES: No edema. LABORATORY DATA: PO2 is 62, pCO2 is 26, . ASSESSMENT AND PLAN: 1. Marked metabolic alkalosis. Vent is being adjusted. Creatinine is 5.4. Lactic acid elevated. Ammonia level is elevated. 2. Elevated ammonia. 3. Metabolic encephalopathy. 4. Seizure disorder. 5. Renal failure. 6. Dementia. Minimize sedation. Activate lactulose empiric antibiotics. Wean when stable. This is a 45-minutes critical care time.
[2017-09-26 08:42] LABS: Actual Bicarbonate (HCO3a) 30.8 mEq/L (22-28); Base Excess (BEa) 6.5 mEq/L (-2.0 to +3.0); Hemoglobin (Hb) 12.6 g/dL (12.0-16.0); O2 Tension (PaO2) 137.2 mmHg (> 80.0); pH, Arterial 7.47 (7.35-7.45)
[2017-09-26 08:44] LABS: Puncture Site RBA
[2017-09-26] MEDS ORDERED: DC Sedation Protocol FS ONE (08:57)
[2017-09-26] MEDS: Cefepime 1 GM in Sodium Chloride 0.9% 100 ML IVPB SCH ×2 (09:36→22:41)
[2017-09-26] MEDS ORDERED: Dextrose 50% Abboject 50 ML SYRINGE IVP PRN (13:35)
[2017-09-26] MEDS ORDERED: Dextrose 5% in Water 1,000 ML IV PRN (13:35)
--- NOTE | 2017-09-26 13:49 | PRG ---
DATE OF SERVICE: 09/26/2017 SUBJECTIVE: Patient was seen and examined at bedside and overnight events noted. Patient denies any shortness of breath or chest pain or palpitation. No history of nausea or vomiting or diarrhea or f ever or chills or cramps. OBJECTIVE: GENERAL: This is a well-built female in no apparent distress. VITAL SIGNS: Temperature 98.3, pulse 84, respiratory 18, blood pressure 130/60. HEENT: Atraumatic, normocephalic. Oral mucosa is moist. NECK: Supple. CARDIOVASCULAR: S1, S2 heard. Rate and rhythm regular. RESPIRATORY: Clear to auscultation. GASTROINTESTINAL: Abdomen is soft. MUSCULOSKELETAL: No tenderness. No edema. DERMATOLOGIC: No skin rash. NEUROLOGIC: Alert and awake and oriented x3. No focal neurologic deficits. Moving all the extremit ies. PSYCHIATRIC: Mood and affect normal. LABORATORY DATA: Potassium 3.9, BUN 27, creatinine is 5.4. ASSESSMENT AND PLAN: 1. End-stage renal disease, continue on dialysis Wednesday, Wednesday, and Wednesday. 2. Edema, . 3. Hypertension. 4. Anemia. 5. Altered mentation, better. 6. Extubated yesterday. We will continue on dialysis as tolerated.
--- NOTE | 2017-09-26 13:58 | PRG ---
DATE OF SERVICE: 09/26/2017 SUBJECTIVE: Lindsey Forrest this morning is awake, alert, responsive, denies any pain or discomfort, o ff sedation. PHYSICAL EXAMINATION: VITAL SIGNS: Pulse 83, blood pressure 150/66, sats 99%, respirations 17. NEUROLOGIC: Moves all 4 extremities. CHEST: Decreased breath sounds, bilateral rhonchi. CARDIAC: Normal S1, S2. No gallops. ABDOMEN: Soft. No masses. IMPRESSION: 1. Respiratory failure. 2. Seizure activity. 3. Metabolic encephalopathy. 4. Renal failure. PLAN: The patient will be weaned and extubated today. Continue Keparveenra. We will follow. One-half hour critical care time.
[2017-09-26] MEDS: Carvedilol 6.25 MG TAB PO SCH (16:35)
[2017-09-26] MEDS: levETIRAcetam 500 MG TAB PO SCH (22:40)
[2017-09-27 03:29] LABS: #Basophils 0.1 thou/uL (0.0-0.2); #Eosinphils 0.3 thou/uL (0.0-0.7); #Lymphocytes 2.5 thou/uL (1.20-3.40); #Monocytes 0.8 thou/uL (0.11-0.59); #Neutrophils 4.8 thou/uL (1.40-6.50); %Basophils 0.9 % (0.0-1.0); %Eosinophils 3.2 % (0.0-10.0); %Lymphocytes 29.7 % (21.0-51.0); %Monocytes 8.9 % (0.0-10.0); %Neutrophils 57.3 % (42.0-75.0); Hemoglobin 11.1 g/dL (12.0-16.0); Mean Corpuscular HGB CONC 34.9 g/dL (32.0-36.0); Mean Corpuscular Hemoglobin 34.3 pg (27.0-31.0); Mean Corpuscular Volume 98.2 fL (78.0-98.0); Mean Platelet Volume 7.2 fL (7.4-10.4); Platelet Count 124 thou/uL (130-400); RBC Distribution Width 12.3 % (11.5-14.5); Red Blood Cell (RBC) Count 3.24 mill/uL (4.20-5.40); White Blood Cell (WBC) Count 8.5 thou/uL (4.8-10.8)
[2017-09-27 03:37] LABS: Lactic Acid 1.5 mmol/L (0.5-2.2)
[2017-09-27 03:41] LABS: Anion Gap 20 mmol/L (10-20); BUN (Urea Nitrogen) 50 mg/dL (9.8-20.1); Calc. Creatinine Clearance 6 mL/min (70-130); Calcium 8.5 mg/dL (7.8-10.44); Carbon Dioxide 27 mmol/L (23-31); Chloride 99 mmol/L (98-107); Estimated GFR-MDRD 4; Glucose 114 mg/dL (80-115); Potassium 3.2 mmol/L (3.5-5.1); Sodium 143 mmol/L (136-145)
--- NOTE | 2017-09-27 08:09 | PRG ---
DATE OF SERVICE: 09/27/2017 This patient remains in the ICU. She is encephalopathic. She does not seem to be oriented to time o r place. PHYSICAL EXAMINATION: VITAL SIGNS: Temperature 97.0, pulse 85, blood pressure 126/63, 24-hour intake 985, output 1. HEENT: Unremarkable. NECK: No JVD. LUNGS: Clear. CARDIAC: S1 and S2 regular. ABDOMEN: Soft. EXTREMITIES: No edema. LABORATORY DATA: Sodium 143, potassium 3.2, chloride 99, CO2 27, BUN 50, creatinine 9.7, glucose 114 , white blood cell count 8.5, hematocrit 31.9, platelet count 124. ASSESSMENT: 1. Status post seizure. 2. Status post acute respiratory failure requiring mechanical ventilation - she had been intubated f or airway protection. 3. End-stage renal disease requiring hemodialysis. RECOMMENDATIONS: 1. Continue the lactulose for treatment of the elevated ammonia level. 2. Continue hemodialysis. 3. She is currently on cefepime. I am not quite sure of the indication for that. We will defer to primary care. 4. Okay to transfer to the floor from my standpoint.
[2017-09-27] MEDS: levETIRAcetam 500 MG TAB PO SCH ×2 (08:40→22:34)
[2017-09-27] MEDS: Carvedilol 6.25 MG TAB PO SCH ×2 (08:40→17:02)
[2017-09-27] MEDS: Cefepime 1 GM in Sodium Chloride 0.9% 100 ML IVPB SCH (09:28)
--- NOTE | 2017-09-27 10:55 | PRG ---
DATE OF SERVICE: 09/27/2017 SUBJECTIVE: This is a 62-year-old female being seen for end-stage renal disease. The patient denied any nausea, vomiting or chest pain. PHYSICAL EXAMINATION: GENERAL: Patient is awake, alert. VITAL SIGNS: Afebrile, pulse 70, breathing 16, blood pressure 99/46. OBJECTIVE: See above. Awake, alert, in no acute distress. GENERAL APPEARANCE AND MENTAL STATUS: Fair. HEAD/NECK: Normocephalic. Atraumatic. EYES: EOMI. No deformity. EARS: Clear. No ulcers. NOSE: Intact. No lesions. MOUTH: Clear. No discharge. THROAT: Clear. No exudate. LUNGS: Clear. No crackles. CARDIAC: S1, S2. No rub. ABDOMEN: Benign. BS+. GENITALIA/RECTUM: Bansal absent. BACK/EXTREMITIES: Edema 0+ Ulcer- NEUROLOGICAL: The patient is not ____. SKIN: Rash- Bruise- LYMPHATICS: Edema- Ulcer- LABORATORY: Hemoglobin 9.6. ASSESSMENT AND RECOMMENDATIONS: 1. Stage 6 chronic kidney disease. Continue hemodialysis. 2. Hypertension, stable. 3. Anemia, stable. 4. Hypokalemia, use 4K bath.
--- NOTE | 2017-09-28 07:07 | PDOC.PULPN ---
Progress Note: Subj/Obj - Subjective Date: 09/28/17 Time: 07:00 Narrative: Patient is A&Ox2 this AM. Denies pain, SOB, or distress. - Objective Allergies/Adverse Reactions: Allergies Allergy/AdvReac Type Severity Reaction Status Date / Time Penicillins Allergy Unknown Verified 09/22/17 21:28 Vital Signs: Vital Signs Temp 98.2 F 09/28/17 00:00 Pulse 67 09/27/17 19:37 Resp 17 09/27/17 19:37 BP 117/59 L 09/27/17 17:02 Pulse Ox 100 09/27/17 19:37 Intake & Output 09/27/17 09/28/17 09/28/17 18:59 06:59 18:59 Intake Total 100 240 Output Total 200 2 Balance -100 238 Intake: Intake, IV Amount 100 Cefepime 1 gm In Sodium 100 Chloride 0.9% 100 ml @ 200 mls/hr IVPB 1000,2200 W[facility] Rx#:[id number] Oral 240 Output: Urine 200 2 Other: Voiding Method Incontinent Incontinent # Urine Diapers 1 # Bowel Movements 3 1 # Bowel Movement Diapers 1 Progress Note: Data - Labs Result Diagrams: 09/27/17 02:57 09/27/17 02:57
--- NOTE | 2017-09-28 07:10 | PDOC.PULCC ---
<Juan Alberto Gama - Last Filed: 09/28/17 07:30> CCU Progress Note: Subj/Obj - Subjective Date: 09/28/17 Time: 07:00 Subjective: This is a 62 yo F who came in [place] for evaluation of AMS. She was found to have high levels of ammonia which are now improved with lactulose treatment. She did have a witnessed seizure during this stay. Was evaluated by Neurology, is on Keppra. This morning she is a A&Ox2. She does have a history of dementia. She denies pain or shortness of breath this morning. - ROS Review of Systems: Denies: cough, congestion, shortness of breath - Objective Allergies/Adverse Reactions: Allergies Allergy/AdvReac Type Severity Reaction Status Date / Time Penicillins Allergy Unknown Verified 09/22/17 21:28 Medications: Current Medications Carvedilol (Coreg) 6.25 mg PO BID-[facility] Last Admin: 09/27/17 17:02 Dose: Not Given Dextrose/Water (Dextrose 50%) 25 gm IVP PRN PRN PRN Reason: HYPOGLYCEMIA PROTOCOL Diltiazem HCl (Cardizem Cd) 180 mg PO DAILY [facility] Last Admin: 09/27/17 08:40 Dose: 180 mg Glucagon (Glucagon) 1 mg IM PRN PRN PRN Reason: HYPOGLYCEMIA PROTOCOL Dextrose/Water (D5w) 1,000 mls @ 0 mls/hr IV INF PRN; As Directed PRN Reason: HYPOGLYCEMIA PROTOCOL Insulin Human Regular (Humulin R) 0 units SC .MILD SLIDING PRN; Protocol PRN Reason: MILD SLIDING SCALE Labetalol HCl (Normodyne) 20 mg SLOW IVP Q4H PRN PRN Reason: SBP GREATER THAN 160 Lactulose (Lactulose) 40 gm PO BID [facility] Last Admin: 09/27/17 22:34 Dose: 40 gm Levetiracetam (Keppra) 500 mg PO BID [facility] Last Admin: 09/27/17 22:34 Dose: 500 mg Sodium Chloride (Flush - Normal Saline) 10 ml IVF Q12HR [facility] Last Admin: 09/27/17 22:35 Dose: 10 ml Sodium Chloride (Flush - Normal Saline) 10 ml IVF PRN PRN PRN Reason: Saline Flush MAR Reviewed: Yes Vital Signs and I&O: Vital Signs Temp 98.2 F 09/28/17 00:00 Pulse 67 09/27/17 19:37 Resp 17 09/27/17 19:37 BP 117/59 L 09/27/17 17:02 Pulse Ox 100 09/27/17 19:37 Intake & Output 09/27/17 09/28/17 09/28/17 18:59 06:59 18:59 Intake Total 100 240 Output Total 200 2 Balance -100 238 Intake: Intake, IV Amount 100 Cefepime 1 gm In Sodium 100 Chloride 0.9% 100 ml @ 200 mls/hr IVPB 1000,[facility] Rx#:[id number] Oral 240 Output: Urine 200 2 Other: Voiding Method Incontinent Incontinent # Urine Diapers 1 # Bowel Movements 3 1 # Bowel Movement Diapers 1 Vent Setting: Positive End Expiratory 5 Pressure % Fraction of Inspired Oxygen 35 (FIO2) CCU Progress Note: Exam - Physical Exam Constitutional: NAD HEENT: PERRLA, moist MMs Cardiovascular: RRR, no significant murmur Respiratory: clear to auscultation anteriorly. Denies: accessory muscle use, wheezes Gastrointestinal: soft, non-tender, positive bowel sounds Musculoskeletal: no edema, pulses present Neurological: non-focal, moves all 4 limbs Lymphatic: no nodes Skin: no rash, cap refill <2 seconds CCU Progress Note: Data - Labs Result Diagrams: 09/27/17 02:57 09/27/17 02:57 Lab results: Laboratory Results 09/25/17 09/26/17 09/26/17 22:47 06:43 07:25 WBC RBC Hgb Hct MCV MCH MCHC RDW Plt Count MPV Neutrophils % Lymphocytes % Monocytes % Eosinophils % Basophils % Neutrophils # Lymphocytes # Monocytes # Eosinophils # Basophils # Specimen Type ARTERIAL Puncture Site RBA Bicarbonate Actual 30.8 H ABG pH 7.47 H ABG pCO2 43.0 ABG pO2 137.2 H ABG O2 Sat Calc/Tyson 98.7 H ABG O2 Content 17.5 L ABG Base Excess 6.5 H ABG Hematocrit 37.0 ABG Hemoglobin 12.6 ABG Carboxyhemoglobin 1.0 ABG Methemoglobin 0.30 Landry Test NOT DONE A-a O2 Gradient 58.600 H Sodium 147 Potassium 3.3 L Chloride 99 Ionized Calcium 1.0 L Mode of Support SIMV/PSV Mechanical Rate 8 Inspired O2 35 Tidal Volume 450 Pressure Support 10 PEEP or CPAP 5.0 Carbon Dioxide Anion Gap BUN Creatinine Estimated GFR (MDRD) Glucose POC Glucose 123 H 125 H Lactic Acid Calcium Ammonia 09/26/17 09/26/17 09/27/17 10:58 15:46 02:57 WBC RBC Hgb Hct MCV MCH MCHC RDW Plt Count MPV Neutrophils % Lymphocytes % Monocytes % Eosinophils % Basophils % Neutrophils # Lymphocytes # Monocytes # Eosinophils # Basophils # Specimen Type Puncture Site Bicarbonate Actual ABG pH ABG pCO2 ABG pO2 ABG O2 Sat Calc/Tyson ABG O2 Content ABG Base Excess ABG Hematocrit ABG Hemoglobin ABG Carboxyhemoglobin ABG Methemoglobin Landry Test A-a O2 Gradient Sodium 143 Potassium 3.2 L Chloride 99 Ionized Calcium Mode of Support Mechanical Rate Inspired O2 Tidal Volume Pressure Support PEEP or CPAP Carbon Dioxide 27 Anion Gap 20 BUN 50 H Creatinine 9.70 H Estimated GFR (MDRD) 4 Glucose 114 POC Glucose 151 H 96 Lactic Acid Calcium 8.5 Ammonia 09/27/17 09/27/17 09/27/17 02:57 03:06 03:06 WBC 8.5 RBC 3.24 L Hgb 11.1 L Hct 31.9 L MCV 98.2 H MCH 34.3 H MCHC 34.9 RDW 12.3 Plt Count 124 L MPV 7.2 L Neutrophils % 57.3 Lymphocytes % 29.7 Monocytes % 8.9 Eosinophils % 3.2 Basophils % 0.9 Neutrophils # 4.8 Lymphocytes # 2.5 Monocytes # 0.8 H Eosinophils # 0.3 Basophils # 0.1 Specimen Type Puncture Site Bicarbonate Actual ABG pH ABG pCO2 ABG pO2 ABG O2 Sat Calc/Tyson ABG O2 Content ABG Base Excess ABG Hematocrit ABG Hemoglobin ABG Carboxyhemoglobin ABG Methemoglobin Landry Test A-a O2 Gradient Sodium Potassium Chloride Ionized Calcium Mode of Support Mechanical Rate Inspired O2 Tidal Volume Pressure Support PEEP or CPAP Carbon Dioxide Anion Gap BUN Creatinine Estimated GFR (MDRD) Glucose POC Glucose Lactic Acid 1.5 Calcium Ammonia 75 H 09/27/17 09/27/17 09/27/17 06:14 16:10 22:32 WBC RBC Hgb Hct MCV MCH MCHC RDW Plt Count MPV Neutrophils % Lymphocytes % Monocytes % Eosinophils % Basophils % Neutrophils # Lymphocytes # Monocytes # Eosinophils # Basophils # Specimen Type Puncture Site Bicarbonate Actual ABG pH ABG pCO2 ABG pO2 ABG O2 Sat Calc/Tyson ABG O2 Content ABG Base Excess ABG Hematocrit ABG Hemoglobin ABG Carboxyhemoglobin ABG Methemoglobin Landry Test A-a O2 Gradient Sodium Potassium Chloride Ionized Calcium Mode of Support Mechanical Rate Inspired O2 Tidal Volume Pressure Support PEEP or CPAP Carbon Dioxide Anion Gap BUN Creatinine Estimated GFR (MDRD) Glucose POC Glucose 101 113 H 96 Lactic Acid Calcium Ammonia - ABG Interpretation ABG Results: ABG pH 7.47 (7.35-7.45) H 09/26/17 07:25 ABG pCO2 43.0 mmHg (35.0-45.0) 09/26/17 07:25 ABG O2 Sat Calc/Tyson 98.7 % (94.0-98.0) H 09/26/17 07:25 ABG Base Excess 6.5 mEq/L (-2.0 to +3.0) H 09/26/17 07:25 CCU Progress Note: A/P - Problems (1) Altered mental status Current Visit: No Status: Acute Code(s): R41.82 - ALTERED MENTAL STATUS, UNSPECIFIED (2) Hemodialysis patient Current Visit: No Status: Acute Code(s): Z99.2 - DEPENDENCE ON RENAL DIALYSIS (3) Hyperammonemia Current Visit: No Status: Acute Code(s): E72.20 - DISORDER OF UREA CYCLE METABOLISM, UNSPECIFIED - Plan Plan: # Altered Mental Status - A&Ox2 today - improving with decreased ammonia levels - unsure of baseline at [place] - Neuro attributed AMS to hyperammonemia # ESRD requiring Dialysis - continue hemodialysis per Dr. Dobbs # Status post Seizure - cont Keppra Dispo: Ok for transfer to medical floor <Francisco Vargas - Last Filed: 09/28/17 07:53> CCU Progress Note: Subj/Obj - Objective Medications: Current Medications Carvedilol (Coreg) 6.25 mg PO BID-[facility] Last Admin: 09/27/17 17:02 Dose: Not Given Dextrose/Water (Dextrose 50%) 25 gm IVP PRN PRN PRN Reason: HYPOGLYCEMIA PROTOCOL Diltiazem HCl (Cardizem Cd) 180 mg PO DAILY [facility] Last Admin: 09/27/17 08:40 Dose: 180 mg Glucagon (Glucagon) 1 mg IM PRN PRN PRN Reason: HYPOGLYCEMIA PROTOCOL Dextrose/Water (D5w) 1,000 mls @ 0 mls/hr IV INF PRN; As Directed PRN Reason: HYPOGLYCEMIA PROTOCOL Insulin Human Regular (Humulin R) 0 units SC .MILD SLIDING PRN; Protocol PRN Reason: MILD SLIDING SCALE Labetalol HCl (Normodyne) 20 mg SLOW IVP Q4H PRN PRN Reason: SBP GREATER THAN 160 Lactulose (Lactulose) 40 gm PO BID [facility] Last Admin: 09/27/17 22:34 Dose: 40 gm Levetiracetam (Keppra) 500 mg PO BID [facility] Last Admin: 09/27/17 22:34 Dose: 500 mg Sodium Chloride (Flush - Normal Saline) 10 ml IVF Q12HR [facility] Last Admin: 09/27/17 22:35 Dose: 10 ml Sodium Chloride (Flush - Normal Saline) 10 ml IVF PRN PRN PRN Reason: Saline Flush Vital Signs and I&O: Vital Signs Temp 99 F 09/28/17 07:14 Pulse 89 09/28/17 07:14 Resp 24 H 09/28/17 07:14 BP 117/59 L 09/27/17 17:02 Pulse Ox 100 09/28/17 07:14 Intake & Output 09/27/17 09/28/17 09/28/17 18:59 06:59 18:59 Intake Total 100 240 Output Total 200 2 Balance -100 238 Intake: Intake, IV Amount 100 Cefepime 1 gm In Sodium 100 Chloride 0.9% 100 ml @ 200 mls/hr IVPB 1000,2200 [facility] Rx#:[id number] Oral 240 Output: Urine 200 2 Other: Voiding Method Incontinent Incontinent Diaper # Urine Diapers 1 # Bowel Movements 3 1 1 # Bowel Movement Diapers 1 Vent Setting: Positive End Expiratory 5 Pressure % Fraction of Inspired Oxygen 35 (FIO2) CCU Progress Note: Data - Labs Result Diagrams: 09/27/17 02:57 09/27/17 02:57 Lab results: Laboratory Results 09/25/17 09/26/17 09/26/17 22:47 06:43 07:25 WBC RBC Hgb Hct MCV MCH MCHC RDW Plt Count MPV Neutrophils % Lymphocytes % Monocytes % Eosinophils % Basophils % Neutrophils # Lymphocytes # Monocytes # Eosinophils # Basophils # Specimen Type ARTERIAL Puncture Site RBA Bicarbonate Actual 30.8 H ABG pH 7.47 H ABG pCO2 43.0 ABG pO2 137.2 H ABG O2 Sat Calc/Tyson 98.7 H ABG O2 Content 17.5 L ABG Base Excess 6.5 H ABG Hematocrit 37.0 ABG Hemoglobin 12.6 ABG Carboxyhemoglobin 1.0 ABG Methemoglobin 0.30 Landry Test NOT DONE A-a O2 Gradient 58.600 H Sodium 147 Potassium 3.3 L Chloride 99 Ionized Calcium 1.0 L Mode of Support SIMV/PSV Mechanical Rate 8 Inspired O2 35 Tidal Volume 450 Pressure Support 10 PEEP or CPAP 5.0 Carbon Dioxide Anion Gap BUN Creatinine Estimated GFR (MDRD) Glucose POC Glucose 123 H 125 H Lactic Acid Calcium Ammonia 09/26/17 09/26/17 09/27/17 10:58 15:46 02:57 WBC RBC Hgb Hct MCV MCH MCHC RDW Plt Count MPV Neutrophils % Lymphocytes % Monocytes % Eosinophils % Basophils % Neutrophils # Lymphocytes # Monocytes # Eosinophils # Basophils # Specimen Type Puncture Site Bicarbonate Actual ABG pH ABG pCO2 ABG pO2 ABG O2 Sat Calc/Tyson ABG O2 Content ABG Base Excess ABG Hematocrit ABG Hemoglobin ABG Carboxyhemoglobin ABG Methemoglobin Landry Test A-a O2 Gradient Sodium 143 Potassium 3.2 L Chloride 99 Ionized Calcium Mode of Support Mechanical Rate Inspired O2 Tidal Volume Pressure Support PEEP or CPAP Carbon Dioxide 27 Anion Gap 20 BUN 50 H Creatinine 9.70 H Estimated GFR (MDRD) 4 Glucose 114 POC Glucose 151 H 96 Lactic Acid Calcium 8.5 Ammonia 09/27/17 09/27/17 09/27/17 02:57 03:06 03:06 WBC 8.5 RBC 3.24 L Hgb 11.1 L Hct 31.9 L MCV 98.2 H MCH 34.3 H MCHC 34.9 RDW 12.3 Plt Count 124 L MPV 7.2 L Neutrophils % 57.3 Lymphocytes % 29.7 Monocytes % 8.9 Eosinophils % 3.2 Basophils % 0.9 Neutrophils # 4.8 Lymphocytes # 2.5 Monocytes # 0.8 H Eosinophils # 0.3 Basophils # 0.1 Specimen Type Puncture Site Bicarbonate Actual ABG pH ABG pCO2 ABG pO2 ABG O2 Sat Calc/Tyson ABG O2 Content ABG Base Excess ABG Hematocrit ABG Hemoglobin ABG Carboxyhemoglobin ABG Methemoglobin Landry Test A-a O2 Gradient Sodium Potassium Chloride Ionized Calcium Mode of Support Mechanical Rate Inspired O2 Tidal Volume Pressure Support PEEP or CPAP Carbon Dioxide Anion Gap BUN Creatinine Estimated GFR (MDRD) Glucose POC Glucose Lactic Acid 1.5 Calcium Ammonia 75 H 09/27/17 09/27/17 09/27/17 06:14 16:10 22:32 WBC RBC Hgb Hct MCV MCH MCHC RDW Plt Count MPV Neutrophils % Lymphocytes % Monocytes % Eosinophils % Basophils % Neutrophils # Lymphocytes # Monocytes # Eosinophils # Basophils # Specimen Type Puncture Site Bicarbonate Actual ABG pH ABG pCO2 ABG pO2 ABG O2 Sat Calc/Tyson ABG O2 Content ABG Base Excess ABG Hematocrit ABG Hemoglobin ABG Carboxyhemoglobin ABG Methemoglobin Landry Test A-a O2 Gradient Sodium Potassium Chloride Ionized Calcium Mode of Support Mechanical Rate Inspired O2 Tidal Volume Pressure Support PEEP or CPAP Carbon Dioxide Anion Gap BUN Creatinine Estimated GFR (MDRD) Glucose POC Glucose 101 113 H 96 Lactic Acid Calcium Ammonia - ABG Interpretation ABG Results: ABG pH 7.47 (7.35-7.45) H 09/26/17 07:25 ABG pCO2 43.0 mmHg (35.0-45.0) 09/26/17 07:25 ABG O2 Sat Calc/Tyson 98.7 % (94.0-98.0) H 09/26/17 07:25 ABG Base Excess 6.5 mEq/L (-2.0 to +3.0) H 09/26/17 07:25 CCU Progress Note: A/P - Plan Plan: Patient remains grossly encephalopathic, but is medically stable. She can be transferred to [facility] as she remains too confused for regular medical unit. Agree with A/P above. SES
[2017-09-28] MEDS: levETIRAcetam 500 MG TAB PO SCH ×2 (08:50→20:26)
[2017-09-28] MEDS: Carvedilol 6.25 MG TAB PO SCH ×2 (08:51→16:30)
[2017-09-28] MEDS ORDERED: Cefepime 1 GM in Sodium Chloride 0.9% 100 ML IVPB SCH (10:00)
[2017-09-28] MEDS: Insulin Regular 300 UNITS/3 ML VIAL SC PRN (11:03)
[2017-09-28 11:30] VITALS: BMI 23.1
--- NOTE | 2017-09-28 13:05 | PRG ---
DATE OF SERVICE: 09/28/2017 SUBJECTIVE: This is a 62-year-old female being seen for end-stage renal disease. The patient denies any nausea, vomiting, or chest pain. OBJECTIVE: GENERAL: The patient is awake, alert. VITAL SIGNS: Afebrile, pulse 89, breathing 16, blood pressure ____. GENERAL APPEARANCE AND MENTAL STATUS: Fair. HEAD/NECK: Normocephalic. Atraumatic. EYES: EOMI. No deformity. EARS: Clear. No ulcers. NOSE: Intact. No lesions. MOUTH: Clear. No discharge. THROAT: Clear. No exudate. LUNGS: Clear. No crackles. CARDIAC: S1, S2. No rub. ABDOMEN: Benign. BS+. GENITALIA/RECTUM: Bansal absent. BACK/EXTREMITIES: Edema 0+ Ulcer- NEUROLOGICAL: Alert and motor intact. SKIN: Rash- Bruise- LYMPHATICS: Edema- Ulcer- LABORATORY DATA: Show hemoglobin 11.1. ASSESSMENT AND RECOMMENDATIONS: 1. Stage ____ chronic kidney disease, continue on hemodialysis. 2. Hypertension, stable. 3. Anemia, stable. 4. Medications based on glomerular filtration rate are appropriate. We will plan dialysis tomorrow.
[2017-09-29 04:08] LABS: #Basophils 0.1 thou/uL (0.0-0.2); #Eosinphils 0.2 thou/uL (0.0-0.7); #Lymphocytes 2.4 thou/uL (1.20-3.40); #Neutrophils 5.3 thou/uL (1.40-6.50); %Basophils 0.7 % (0.0-1.0); %Eosinophils 2.7 % (0.0-10.0); %Lymphocytes 26.9 % (21.0-51.0); %Monocytes 11.3 % (0.0-10.0); %Neutrophils 58.4 % (42.0-75.0); Mean Corpuscular HGB CONC 34.8 g/dL (32.0-36.0); Mean Corpuscular Hemoglobin 33.4 pg (27.0-31.0); Mean Corpuscular Volume 96.2 fL (78.0-98.0); Mean Platelet Volume 6.9 fL (7.4-10.4); Platelet Count 146 thou/uL (130-400); RBC Distribution Width 12.5 % (11.5-14.5)
[2017-09-29 04:18] LABS: Anion Gap 19 mmol/L (10-20); BUN (Urea Nitrogen) 34 mg/dL (9.8-20.1); Calc. Creatinine Clearance 7 mL/min (70-130); Calcium 9.3 mg/dL (7.8-10.44); Carbon Dioxide 23 mmol/L (23-31); Chloride 105 mmol/L (98-107); Estimated GFR-MDRD 5; Glucose 117 mg/dL (80-115); Potassium 3.6 mmol/L (3.5-5.1); Sodium 143 mmol/L (136-145)
--- NOTE | 2017-09-29 07:54 | PRG ---
DATE OF SERVICE: 09/29/2017 The patient is more awake and little more conversant. She is partially oriented. PHYSICAL EXAMINATION: VITAL SIGNS: Temperature 98.8, pulse 69, blood pressure 118/47, 24 intake at least 480, output not m easured. She is in a diaper. HEENT: Unremarkable. NECK: No JVD. CHEST: Fairly clear without wheezing or rhonchi. CARDIAC: S1, S2 regular. ABDOMEN: Soft. EXTREMITIES: Trace edema. LABORATORY DATA: White blood cell count 9, hematocrit 34.6, platelet count 146. Sodium 143, potassi um 3.6, chloride 105, CO2 23, BUN 34, creatinine 7.9, glucose 117. ASSESSMENT: 1. Status post seizure. 2. Respiratory failure requiring mechanical ventilation. 3. End-stage renal disease requiring hemodialysis. 4. Improved encephalopathy. PLAN: The patient can transfer out to the medical floor. She will continue hemodialysis per the [facility] hrology team. There do not seem to be any acute pulmonary issues at this time.
[2017-09-29] MEDS: Carvedilol 6.25 MG TAB PO SCH ×2 (08:31→16:37)
[2017-09-29] MEDS: levETIRAcetam 500 MG TAB PO SCH ×2 (08:31→20:29)
--- NOTE | 2017-09-29 11:14 | PRG ---
DATE OF SERVICE: 09/29/2017 SUBJECTIVE: A 62-year-old female being seen for end-stage renal disease. The patient denies any marilyn sea, vomiting or chest pain. PHYSICAL EXAMINATION: GENERAL: Patient is awake. VITAL SIGNS: Afebrile, pulse 60, breathing 16, blood pressure 144/74. HEAD/NECK: Normocephalic. Atraumatic. EYES: EOMI. No deformity. EARS: Clear. No ulcers. NOSE: Intact. No lesions. MOUTH: Clear. No discharge. THROAT: Clear. No exudate. LUNGS: Clear. No crackles. CARDIAC: S1, S2. No rub. ABDOMEN: Benign. BS+. GENITALIA/RECTUM: Bansal absent. BACK/EXTREMITIES: Edema 0+ Ulcer- NEUROLOGICAL: Alert and motor intact. SKIN: Rash- Bruise- LYMPHATICS: Edema- Ulcer-. LABORATORY DATA: Show hemoglobin 12. ASSESSMENT AND RECOMMENDATIONS: 1. Stage 6 chronic kidney disease, plan dialysis. 2. Hypertension, stable. 3. Anemia, stable. 4. Dementia, progressively getting worse.
[2017-09-29] MEDS: Insulin Regular 300 UNITS/3 ML VIAL SC PRN (20:32)
[2017-09-30 04:54] LABS: Anion Gap 17 mmol/L (10-20); BUN (Urea Nitrogen) 14 mg/dL (9.8-20.1); Calc. Creatinine Clearance 13 mL/min (70-130); Calcium 9.2 mg/dL (7.8-10.44); Carbon Dioxide 24 mmol/L (23-31); Chloride 101 mmol/L (98-107); Estimated GFR-MDRD 9; Glucose 121 mg/dL (80-115); Potassium 3.3 mmol/L (3.5-5.1); Sodium 139 mmol/L (136-145)
[2017-09-30 05:44] LABS: Band 4 % (5-11); Eosinophils 2 % (0-10); Hemoglobin 11.4 g/dL (12.0-16.0); Lymphocytes 33 % (21-51); MDiff Complete? YES; Mean Corpuscular HGB CONC 34.2 g/dL (32.0-36.0); Mean Corpuscular Hemoglobin 33.2 pg (27.0-31.0); Mean Corpuscular Volume 97.1 fL (78.0-98.0); Mean Platelet Volume 7.5 fL (7.4-10.4); Monocytes 10 % (0-10); Neutrophil 51 % (42-75); Platelet Count 137 thou/uL (130-400); RBC Distribution Width 12.3 % (11.5-14.5); Red Blood Cell (RBC) Count 3.42 mill/uL (4.20-5.40); White Blood Cell (WBC) Count 7.5 thou/uL (4.8-10.8)
[2017-09-30] MEDS: Carvedilol 6.25 MG TAB PO SCH ×2 (09:02→16:51)
[2017-09-30] MEDS: levETIRAcetam 500 MG TAB PO SCH (09:02)
--- NOTE | 2017-09-30 11:39 | PRG ---
DATE OF SERVICE: 09/30/2017 SUBJECTIVE: This is a 62-year-old female being seen for end-stage renal disease. The patient is non verbal. PHYSICAL EXAMINATION: GENERAL: Patient is resting. VITAL SIGNS: Afebrile, pulse 70, breathing 16, blood pressure 101/52. OBJECTIVE: See above. Awake, alert, in no acute distress. GENERAL APPEARANCE AND MENTAL STATUS: Fair. HEAD/NECK: Normocephalic. Atraumatic. EYES: EOMI. No deformity. EARS: Clear. No ulcers. NOSE: Intact. No lesions. MOUTH: Clear. No discharge. THROAT: Clear. No exudate. LUNGS: Clear. No crackles. CARDIAC: S1, S2. No rub. ABDOMEN: Benign. BS+. GENITALIA/RECTUM: Bansal absent. BACK/EXTREMITIES: Edema 0+ Ulcer- NEUROLOGICAL: Alert and motor intact. SKIN: Rash- Bruise- LYMPHATICS: Edema- Ulcer- LABORATORY: Hemoglobin 11.4. ASSESSMENT: 1. Stage 6 chronic kidney disease, continue hemodialysis. 2. Hypertension, stable. 3. Anemia, stable. 4. Chronic dementia, stable.
[2017-09-30 16:51] VITALS: BP 115/56
[2017-09-30 16:52] VITALS: TEMP 99.1
--- NOTE | 2017-10-01 14:47 | DIS ---
DATE OF ADMISSION: 09/22/2017 DATE OF DISCHARGE: 09/30/2017 ADMITTING DIAGNOSES: 1. Acute metabolic encephalopathy, possibly due to elevated ammonia. 2. Urinary tract infection. 3. End-stage renal disease, hemodialysis. 4. Hypertension. 5. Diabetes mellitus. 6. Dementia. FINAL DIAGNOSES: 1. Severe metabolic encephalopathy, possibly due to hyperammonemia, improved. 2. Status post code blue, status post intubation on ventilator support. 3. Seizure episode. 4. End-stage renal disease on hemodialysis. 5. Dementia. 6. Urinary tract infection. 7. Hypertension. 8. Diabetes mellitus. 9. Acute respiratory failure requiring mechanical intubation. BRIEF SUMMARY OF HOSPITAL OF HOSPITAL COURSE: Ms. Forrest is a 62-year-old female admitted because of change in mental status. Initially, her ammonia level was more than 100, thought due to ammonia levels causing metabolic encephalopathy. She was started on lactulose. Her lactulose dose was increased and ammonia level was followed on the day of admission was 96, but it went up to 144. Lactulose dose was increased to twice a day and after that ammonia level gradually came down. On 09/24/2017, the patient had an episode of seizure and code blue was called because of her hypotension. The patient really is not hypotensive, but she had seizure episode and she was unresponsive. She was given Ativan and later, patient was not breathing well, so she was intubated and put on ventilator and admitted to CCU for close monitoring. The patient was on ventilator support for the next 2 days, did not have any more seizures. Neurology consulted with the patient was seen by Dr. Buchanan who suggested to start the patient on Keppra. The patient was continued on hemodialysis as well as continued on ventilator support for the next few days and then patient was weaned off ventilator and extubated and in the meanwhile, her ammonia level came down to 50s. The patient's mental status markedly improved, now agitated and was started on diet and she tolerated diet very well. After she weaned off the ventilator, she was transferred to the medical floor and she is being discharged back to [facility]. At the time of discharge, she was stable. Her vital signs stable. Lungs clear. Heart sounds regular. Abdomen is soft, nontender. DISCHARGE MEDICATIONS: Include pravastatin 10 mg at bedtime, Namenda 5 mg b.i.d., diltiazem 180 daily, Coreg 6.25 b.i.d., Keppra 500 b.i.d., Seroquel 25 mg at bedtime, lactulose 40 grams b.i.d. MTDD
== END 2017-09-30 17:10 | DRG 642 ==
LOC: ERS 12:21 → ERHOLD 16:20 → 2NO 18:25 → CCU 09-24 18:53 → T4-A 09-29 09:37
PROVIDERS: ADMIT Internal Medicine; ATTEND Internal Medicine
PROC: 5A1945Z Respiratory Ventilation, 24-96 Consecutive Hours (ICD-10-PCS; principal; 2017-09-24)
PROC: 0BH17EZ Insertion of Endotracheal Airway into Trachea, Via Natural or Artificial Opening (ICD-10-PCS; 2017-09-24)
PROC: 5A1D70Z Performance of Urinary Filtration, Intermittent, Less than 6 Hours Per Day (ICD-10-PCS; 2017-09-24)
PROC: 5A1D70Z Performance of Urinary Filtration, Intermittent, Less than 6 Hours Per Day (ICD-10-PCS; 2017-09-27)
PROC: 5A1D70Z Performance of Urinary Filtration, Intermittent, Less than 6 Hours Per Day (ICD-10-PCS; 2017-09-29)
DX: E72.20 Disorder of urea cycle metabolism, unspecified (principal); G93.41 Metabolic encephalopathy; N18.6 End stage renal disease; J96.00 Acute respiratory failure, unspecified whether with hypoxia or hypercapnia; N39.0 Urinary tract infection, site not specified; I12.0 Hypertensive chronic kidney disease with stage 5 chronic kidney disease or end stage renal disease; E87.3 Alkalosis; R56.9 Unspecified convulsions; E11.22 Type 2 diabetes mellitus with diabetic chronic kidney disease; F03.90 Unspecified dementia, unspecified severity, without behavioral disturbance, psychotic disturbance, mood disturbance, and anxiety; E87.6 Hypokalemia; D63.1 Anemia in chronic kidney disease; Z99.2 Dependence on renal dialysis; F32.9 Major depressive disorder, single episode, unspecified; E78.5 Hyperlipidemia, unspecified; Z88.0 Allergy status to penicillin; Z79.899 Other long term (current) drug therapy
CPT/HCPCS: 36415; 36416; 51701; 70450; 71045; 80048; 80053; 81003; 81015; 82140; 82553; 82805; 83605; 83735; 83880; 84100; 84146; 84484; 85025; 87040; 87086; 90935; 93005; 94002; 94003; 94640; 94760; 96360; 96361; 96365; A4216; A4353; G0257; J0360; J0692; J0696; J1815; J1953; J1956; J2060; J2270; J2704; J7050; J7620

== ENCOUNTER 2017-10-04 12:02 | Emergency (ER) | payer MEDICARE, MEDICAID ==
[2017-10-04 12:51] LABS: #Basophils 0.1 thou/uL (0.0-0.2); #Eosinphils 0.1 thou/uL (0.0-0.7); #Lymphocytes 2.6 thou/uL (1.20-3.40); #Monocytes 1.4 thou/uL (0.11-0.59); #Neutrophils 5.4 thou/uL (1.40-6.50); %Basophils 0.6 % (0.0-1.0); %Eosinophils 0.8 % (0.0-10.0); %Lymphocytes 27.4 % (21.0-51.0); %Monocytes 14.7 % (0.0-10.0); %Neutrophils 56.4 % (42.0-75.0); Hemoglobin 10.4 g/dL (12.0-16.0); Mean Corpuscular Hemoglobin 32.6 pg (27.0-31.0); Mean Platelet Volume 7.5 fL (7.4-10.4); Platelet Count 141 thou/uL (130-400); RBC Distribution Width 12.2 % (11.5-14.5); Red Blood Cell (RBC) Count 3.19 mill/uL (4.20-5.40); White Blood Cell (WBC) Count 9.5 thou/uL (4.8-10.8)
[2017-10-04 13:16] LABS: ALT (SGPT) 14 U/L (8-55); AST (SGOT) 15 U/L (5-34); Alkaline Phosphatase 65 U/L (40-150); Anion Gap 17 mmol/L (10-20); BUN (Urea Nitrogen) 60 mg/dL (9.8-20.1); Bilirubin, Total 1.9 mg/dL (0.2-1.2); Calc. Creatinine Clearance 0 mL/min (70-130); Calcium 9.4 mg/dL (7.8-10.44); Carbon Dioxide 22 mmol/L (23-31); Chloride 101 mmol/L (98-107); Estimated GFR-MDRD 4; Globulin 2.7 g/dL (2.4-3.5); Glucose 179 mg/dL (80-115); Potassium 3.5 mmol/L (3.5-5.1); Protein, Total 5.7 g/dL (6.0-8.3); Sodium 136 mmol/L (136-145)
--- NOTE | 2017-10-05 13:48 | CON ---
DATE OF CONSULTATION: 10/04/2017 Pt was seen on 10/04 at dialysis room. CONSULTING PHYSICIAN: Makeda Hidalgo DO REASON FOR CONSULTATION: End-stage renal disease evaluation and care. REASON FOR ER VISIT: Altered mentation. HISTORY OF PRESENT ILLNESS: This is a 62-year-old white female with history of end-stage renal disease, type 2 diabetes, hypertension, anxiety, encephalopathy , came to the hospital with confusion. The patient was evaluated for weakness also and then was deemed appropriate to send home, but patient missed dialysis per primary respiratory coordinator and was admitted. No fever or chills. The patient was seen during dialysis and tolerating well. No chest pain, no shortness of breath. PAST MEDICAL HISTORY: Positive for end-stage renal disease, type 2 diabetes, hypertension, anxiety, encephalopathy, and dementia. PAST SURGICAL HISTORY: Dialysis access placement, hysterectomy, mastectomy. HOME MEDICATION: Folic acid, pravastatin, Namenda, trazodone, Remeron, Prozac, and lactulose. ALLERGIES: No known drug allergies. FAMILY HISTORY: No history of any kidney disease. SOCIAL HISTORY: No smoking, alcohol, or illicit drug abuse. REVIEW OF SYSTEMS: The following complete review of systems was negative, unless otherwise mentioned in the HPI or below: Constitutional: Weight loss or gain, ability to conduct usual activities. Skin: Rash, itching. Eyes: Double vision, pain. ENT/Mouth: Nose bleeding, neck stiffness, pain, tenderness. Cardiovascular: Palpitations, dyspnea on exertion, orthopnea. Respiratory: Shortness of breath, wheezing, cough, hemoptysis, fever or night sweats. Gastrointestinal: Poor appetite, abdominal pain, heartburn, nausea, vomiting, constipation, or diarrhea. Genitourinary: Urgency, frequency, dysuria, nocturia. Musculoskeletal: Pain, swelling. Neurologic/Psychiatric: Anxiety, depression. Allergy/Immunologic: Skin rash, bleeding tendency. PHYSICAL EXAMINATION: GENERAL: This is a well-built female in no apparent distress. VITAL SIGNS: Temperature 98.7, pulse 96, respiratory rate . HEENT: Atraumatic, normocephalic. Oral mucosa is moist. NECK: Supple. CARDIOVASCULAR: S1 and S2 heard. Rate and rhythm regular. RESPIRATORY: Clear. ABDOMEN: Soft. MUSCULOSKELETAL: No tenderness. No edema. DERMATOLOGIC: No skin rash. NEUROLOGIC: Alert, awake. PSYCHIATRIC: Mood and affect normal. LABORATORY DATA: Hemoglobin is 10.4, potassium 3.5, BUN is 60, and creatinine is 9.9. ASSESSMENT AND PLAN: 1. End-stage renal disease. We will have dialysis. Patient was seen during dialysis and is tolerating well. Continue dialysis as tolerated. 2. Edema, controlled. 3. Hypertension, stable. 4. Anemia. Continue ÁNGEL as tolerated. 5. Hypoalbuminemia. 6. Altered mentation better, weakness per primary team. The patient was seen during dialysis, tolerating well. Continue dialysis as tolerated. MTDD
== END 2017-10-04 23:44 | disposition home or self-care (01) ==
LOC: ERS 12:02
DX: R53.1 Weakness (principal); Z91.15 Patient's noncompliance with renal dialysis; I12.0 Hypertensive chronic kidney disease with stage 5 chronic kidney disease or end stage renal disease; N18.6 End stage renal disease; E78.5 Hyperlipidemia, unspecified; F31.9 Bipolar disorder, unspecified; F41.9 Anxiety disorder, unspecified; E11.22 Type 2 diabetes mellitus with diabetic chronic kidney disease; Z79.899 Other long term (current) drug therapy; Z79.4 Long term (current) use of insulin
CPT/HCPCS: 36415; 80053; 82140; 85025; 90935; 99285; G0257

== ENCOUNTER 2017-10-06 16:44 | Observation (INO) | payer MEDICARE, MEDICAID ==
[2017-10-06 17:18] LABS: #Basophils 0.1 thou/uL (0.0-0.2); #Eosinphils 0.2 thou/uL (0.0-0.7); #Lymphocytes 3.1 thou/uL (1.20-3.40); %Basophils 1.1 % (0.0-1.0); %Lymphocytes 41.7 % (21.0-51.0); %Monocytes 12.9 % (0.0-10.0); %Neutrophils 41.3 % (42.0-75.0); Hemoglobin 11.1 g/dL (12.0-16.0); Mean Corpuscular HGB CONC 35.4 g/dL (32.0-36.0); Mean Corpuscular Hemoglobin 33.7 pg (27.0-31.0); Mean Corpuscular Volume 95.1 fL (78.0-98.0); Mean Platelet Volume 7.4 fL (7.4-10.4); Platelet Count 184 thou/uL (130-400); Red Blood Cell (RBC) Count 3.31 mill/uL (4.20-5.40); White Blood Cell (WBC) Count 7.3 thou/uL (4.8-10.8)
[2017-10-06 17:43] LABS: ALT (SGPT) 13 U/L (8-55); AST (SGOT) 15 U/L (5-34); Alkaline Phosphatase 63 U/L (40-150); Anion Gap 17 mmol/L (10-20); BUN (Urea Nitrogen) 51 mg/dL (9.8-20.1); CK (CPK) 16 U/L (29-168); Calc. Creatinine Clearance 0 mL/min (70-130); Calcium 9.2 mg/dL (7.8-10.44); Carbon Dioxide 26 mmol/L (23-31); Chloride 101 mmol/L (98-107); Estimated GFR-MDRD 5; Glucose 122 mg/dL (80-115); Potassium 3.6 mmol/L (3.5-5.1); Sodium 140 mmol/L (136-145)
[2017-10-06 17:45] LABS: CKMB 0.8 ng/mL (0-6.6); Troponin I 0.072 ng/mL (< 0.028)
[2017-10-06] MEDS ORDERED: Magnesium Sulfate 2 GM in Sodium Chloride 0.9% 100 ML IVPB SCH (17:45)
[2017-10-06] MEDS ORDERED: Nitroglycerin 0.4 MG TAB (25 Tab Bottle) ONE (18:06)
--- NOTE | 2017-10-06 19:21 | RAD ---
AP VIEW OF THE CHEST: 10/06/17 INDICATION; History of dialysis and chest pain. FINDINGS: Since the comparison examination of 09/24/17, the patient has been extubated. There is mild cardiomega ly. There is mild pulmonary vascular congestion. Left costophrenic angle is excluded. No pneumothorax is evident. No acute osseous abnormality is evident. IMPRESSION: Cardiomegaly with pulmonary vascular congestion. POS: NOAH
[2017-10-06] MEDS ORDERED: Diltiazem 125 MG in Sodium Chloride 0.9% 100 ML IVPB SCH (20:45)
[2017-10-06] MEDS ORDERED: Enoxaparin Sodium 60 MG/0.6 ML SYRINGE ONE (20:50)
[2017-10-06 21:48] LABS: Troponin I 0.075 ng/mL (< 0.028)
[2017-10-06] MEDS ORDERED: Digoxin 0.5 MG/2 ML AMP ONE (22:57)
[2017-10-06 23:56] LABS: Troponin I 0.075 ng/mL (< 0.028)
[2017-10-07 00:06] LABS: HBSAg Index 0.16 S/CO (0-0.99); Hep B Surf Ag Non-Reactive S/CO (NonReactive)
[2017-10-07] MEDS ORDERED: Acetaminophen 325 MG TAB PO PRN (00:18)
[2017-10-07] MEDS ORDERED: Ondansetron HCl/PF 4 MG/2 ML Vial IVP PRN (00:18)
[2017-10-07] MEDS ORDERED: Ondansetron ODT 4 MG TAB SL PRN (00:18)
[2017-10-07 00:38] VITALS: BMI 21.7
[2017-10-07 01:26] LABS: HBSAB Concentration 729.17 mIU/mL; Hep B Surf AB Reactive (NonReactive)
[2017-10-07] MEDS ORDERED: Insulin Regular 300 UNITS/3 ML VIAL SC SCH (10:45)
--- NOTE | 2017-10-07 11:53 | CON ---
NEPHROLOGY CONSULTATION DATE OF CONSULTATION: 10/06/2017 CONSULTING PHYSICIAN: Dr. Zhu. REASON FOR CONSULTATION: End-stage renal disease evaluation and care. REASON FOR ADMISSION: Weakness. HISTORY OF PRESENT ILLNESS: This is a 62-year-old white female with history of end-stage renal disea se, type 2 diabetes, hypertension, who came to the hospital with weakness and is being evaluated. Th e patient was found to have atrial fibrillation and RVR and is being admitted with Cardiology consult and Nephrology is consulted for maintenance hemodialysis. Chest x-ray shows fluid overload. The patient is slightly confused. No nausea or vomiting reported. PAST MEDICAL HISTORY: Positive for end-stage renal disease, type 2 diabetes, hypertension, anxiety, encephalopathy, dementia. PAST SURGICAL HISTORY: Dialysis access, hysterectomy, mastectomy. HOME MEDICATIONS: Pravastatin, Namenda, trazodone, Remeron, Prozac, and lactulose. ALLERGIES: No known drug allergies. FAMILY HISTORY: No history of any kidney disease. SOCIAL HISTORY: No smoking, alcohol, or illicit drug abuse. REVIEW OF SYSTEMS: The following complete review of systems was negative, unless otherwise mentioned in the HPI or below: Constitutional: Weight loss or gain, ability to conduct usual activities. Sk in: Rash, itching. Eyes: Double vision, pain. ENT/Mouth: Nose bleeding, neck stiffness, pain, te nderness. Cardiovascular: Palpitations, dyspnea on exertion, orthopnea. Respiratory: Shortness of breath, wheezing, cough, hemoptysis, fever or night sweats. Gastrointestinal: Poor appetite, abdom inal pain, heartburn, nausea, vomiting, constipation, or diarrhea. Genitourinary: Urgency, frequenc y, dysuria, nocturia. Musculoskeletal: Pain, swelling. Neurologic/Psychiatric: Anxiety, depressio n. Allergy/Immunologic: Skin rash, bleeding tendency. PHYSICAL EXAMINATION: GENERAL: This is a well-built female, in no apparent distress. VITAL SIGNS: Temperature 98.7, pulse 118, respiratory rate 18, blood pressure 92/52. HEENT: Atraumatic, normocephalic. Oral mucosa is moist. NECK: Supple. CARDIOVASCULAR: S1, S2 heard. Rate and rhythm regular. RESPIRATORY: Clear to auscultation. MUSCULOSKELETAL: 1+ edema. DERMATOLOGIC: No skin rash. NEUROLOGIC: Alert, awake. PSYCHIATRIC: Mood and affect normal. LABORATORY DATA: Hemoglobin 11.1, potassium 3.6, BUN 51, creatinine is 8.2. ASSESSMENT AND PLAN: 1. End-stage renal disease. We will have dialysis as tolerated. 2. Hypotension, high risk for dialysis. We will have dialysis. Chest x-ray did show fluid overload . 3. Cardiorenal syndrome, may not be able to have ultrafiltration due to hypotension. 4. Edema. 5. Hypertension, stable. 6. Anemia, mild. Plan is to continue on dialysis as tolerated. Blood pressure remains low. We will have close monito r.
--- NOTE | 2017-10-07 12:40 | CON ---
DATE OF CONSULTATION: 10/07/2017 DATE OF ADMISSION: 10/07/2017 INDICATION FOR CONSULTATION: This is a 62-year-old female with intermittent atrial fibrillation. We were asked to see her due to her atrial fibrillation. HISTORY OF PRESENT ILLNESS: This is a very pleasant 62-year-old female who has had encephalopathy. She has had a long history of medical problems. She has end-stage renal disease on hemodialysis. Karen aponte has had type 2 diabetes and hypertension. She has some dementia and possible encephalopathy may be induced by this, and also has anxiety. She apparently has donated a kidney in the past, but otherwi se has had no other significant problems. She was seen by Dr. Shah a couple of years ago, also i ntermittent atrial fibrillation. She was also seen by director public policy. Medical management was a dvised at that time. She has now presented. She was actually in the hospital and was just discharge d yesterday and then presented again last night or this morning early after having repeated episodes of atrial fibrillation with rapid ventricular response. She has not had a repeat routine dialysis ye t, need to undergo dialysis for a creatinine of 8.28, her potassium remains at 3.6. She was started on IV diltiazem and then converted back to normal sinus rhythm. Her medications at home already incl uded p.o. diltiazem as well as Coreg, but she is apparently not maintaining her in sinus rhythm. Acc ording to some of the records, I did not see that she was listed on the diltiazem and uncertain as to whether or not she has been continuing to take this medicine at home or on the intermediate facility where she stays, but according to the record, she was taking diltiazem 90 mg 2 tablets a day with gl obal 180 mg a day and she also was taking Coreg 6.25 mg b.i.d. Her other medications included pravas tatin 10 mg a day, Zoloft, Namenda, trazodone, insulin, Renvela, Maalox p.r.n., and Prozac. Also, pl ease note she has had a also in the past and has some history of bipolar disorder. Also, please note, she does have a very soft systolic murmur of the aortic area. PAST MEDICAL HISTORY: She does have some coronary artery disease. This was found in some of the old er records on review. She has a stent in the diagonal branch which was placed in 2010 and she did caputo ve a history of tobacco abuse in the past. ALLERGY: She does have an allergy to PENICILLIN. FAMILY HISTORY: Noncontributory. SOCIAL HISTORY: There is no history of alcohol or tobacco use at this time. REVIEW OF SYSTEMS: Somewhat unreliable review of systems. The patient did say she has had a heart a ttack in the past. She has had stent placement, but denies any documentation and I suspect she may h ave had some intervention performed of her shunt, but did not see any indication that she has had any stent placements. Otherwise, I did not have indication she has underlying coronary artery disease t hat we are aware of. PHYSICAL EXAMINATION: GENERAL: Reveals a well-developed, well-nourished female, somewhat confused at times. VITAL SIGNS: Stable. Her blood pressure 109/57, heart rate is 77. She has been previously her hear t rate in the one-teens to 120s with her atrial fibrillation, respiratory rate 16. She is afebrile. HEENT: Shows head to be normocephalic, atraumatic. Carotid pulses are present. I did not hear any significant bruits at this time. CHEST: Clear to auscultation. There were no rales, rhonchi or wheezing noted. CARDIOVASCULAR: Exam reveals a regular rate and rhythm at this time. There is normal S1, S2. I can not hear an S3 nor an S4, nor are there any significant murmurs, heaves, thrills, bruits or rubs. Sh e has a very soft systolic murmur at the apex and over the aortic area. ABDOMEN: Soft and nontender with positive bowel sounds. EXTREMITIES: Show no clubbing or cyanosis. Pedal pulses are present. She also has a large fistula in the left arm for her hemodialysis and this has a good thrill. NEUROLOGIC: I did not see any gross focal motor deficits, but she has some dementia. DATABASE: Her EKG on admission showed atrial fibrillation with a rapid ventricular response and has since converted back to sinus rhythm. Monitor shows a heart rate in the 70s with a normal sinus rhyt hm. She also had some evidence of some PVCs in the past and on this admission some occasional PVCs. Apparently, she also had a couple of week or so ago, on 09/24/2017 she had what appeared to be a pos sible seizure. The patient; however, says she has two to three times and uncertain as to what t his means. IMPRESSION: 1. Atrial fibrillation with rapid ventricular response, which was subsequently converted back to sin us rhythm with the diltiazem. We will try to increase the dose of diltiazem, may ask the electrophys iologist to see her again in consultation for further evaluation or suggestions of medication she cou ld take for atrial fibrillation control and to maintain sinus rhythm. I do not believe she was a can didate early to undergo ablation. There has also been some mention in the past that she may have risa e hepatic disease and her AST and ALT are low, but did not see any indication that she has any liver failure at this time. Otherwise, she does have end-stage renal disease which will limit our antiarrh ythmic medication significantly since most of them are renally metabolized. 2. History of coronary disease. This appears to be stable at this time, but she may need to undergo further evaluation by stress testing. I do not see any recent stress testing on this patient and th is may be another etiology for the intermittent atrial fibrillation. She did have her last echocardi ogram in 01/2015. At that time, she appeared to have a normal ejection fraction with some aortic cricket ve fibrosis and had some mild mitral and tricuspid valve regurgitation. IMPRESSION: 1. Coronary disease, which appears to be stable. 2. Diabetes is being managed by the primary care service. 3. End-stage renal disease. She will continue her hemodialysis. 4. History of aortic fibrosis. 5. Altered mental status which is probably due to some encephalopathy which is most likely longstand ing. This also will be dealt with by the primary care service. I will ask her to take just for his opinion as to whether or not we can find some other medicine to treat her atrial fibrillation and in the meantime, I will try to increase the dose. She is on IV diltiazem and when she is off the IV dil tiazem, I would not stop this until after dialysis, but when she is off the IV diltiazem, perhaps we can increase the p.o. dose to see whether or not this will maintain the sinus rhythm. There is also some history of an elevated ammonia level, which may indicate some liver disease. I did not see a re cent ammonia level, but there was some mention of this in her history. 6. Mild anemia which most likely associated with her end-stage renal disease. Further care of the p atient will be by Dr. Shah when he sees the patient tomorrow. I will obtain a repeat echocardiog tena for evaluation of left ventricular function and also try to plan for stress testing in this patie nt.
[2017-10-07] MEDS ORDERED: Potassium Chloride 20 MEQ TAB PO SCH (12:45)
[2017-10-07] MEDS: Sevelamer Carbonate 800 MG TAB PO SCH ×2 (13:04→18:10)
--- NOTE | 2017-10-07 17:44 | PRG ---
DATE OF SERVICE: 10/07/2017 SUBJECTIVE: Patient was seen and examined at bedside and overnight events noted. Patient denies any shortness of breath or chest pain or palpitation. No history of nausea or vomiting or diarrhea or f ever or chills or cramps. OBJECTIVE: GENERAL: This is a well-built female in no apparent distress. VITAL SIGNS: Temperature 96, pulse 73, respiratory rate 18, blood pressure 133/58. HEENT: Atraumatic, normocephalic. Oral mucosa is moist. NECK: Supple. CARDIOVASCULAR: S1, S2 heard. Rate and rhythm regular. RESPIRATORY: Clear to auscultation. GASTROINTESTINAL: Abdomen is soft. MUSCULOSKELETAL: No tenderness. No edema. DERMATOLOGIC: No skin rash. NEUROLOGIC: Alert and awake and oriented x3. No focal neurologic deficits. Moving all the extremiti es. PSYCHIATRIC: Mood and affect normal. LABORATORY DATA: Not done today. ASSESSMENT AND PLAN: 1. End-stage renal disease. Continue on dialysis as tolerated Wednesday, Wednesday, and Wednesday. 2. Hypertension, stable. 3. Edema. 4. Cardiorenal syndrome and hypertension. 5. Altered mentation, better. We will continue on dialysis Wednesday, Wednesday, and Wednesday as tolerated.
[2017-10-07] MEDS: Carvedilol 6.25 MG TAB PO SCH (20:14)
[2017-10-07] MEDS: levETIRAcetam 500 MG TAB PO SCH (20:14)
[2017-10-07] MEDS: Diltiazem HCl SR 90 mg Capsule PO SCH (20:16)
[2017-10-07] MEDS: Artificial Tear Sol 15 ML BOT EA EYE SCH (20:25)
[2017-10-07] MEDS ORDERED: Pravastatin Sodium 20 MG TAB PO SCH (21:00)
--- NOTE | 2017-10-08 01:26 | HP ---
DATE OF ADMISSION: 10/07/2017 CHIEF COMPLAINT: Tachycardia and chest pain. HISTORY OF PRESENT ILLNESS: Ms. Forrest is a 62-year-old female who was brought from dialysis unit because of her chest pain and tachycardia. Patient was evaluated a day before with tachycardia and was released. Again, she has chest pain and she was supposed to have dialysis. Her pain was sharp in nature and nonradiating, not associated with any nausea, vomiting, and diaphoresis, no shortness of breath. In view of the chest pain, patient was brought to the emergency room, where she was evaluated. She was found to be in atrial fibrillation with rapid ventricular rate, heart rate in the range of 130s , so patient received digoxin as well as diltiazem IV push and followed by diltiazem infusion. She was also given aspirin and nitroglycerin for chest pain and she was admitted for further evaluation and management. PAST MEDICAL HISTORY: 1. End-stage renal disease on hemodialysis. 2. Hyperammonemia. 3. Hypertension. 4. Diabetes mellitus. 5. Recent seizure. 6. Dementia. PAST SURGICAL HISTORY: Status post hysterectomy, status post mastectomy, status post AV shunt. CURRENT MEDICATIONS: Patient is on Coreg 6.25 b.i.d., Sensipar 30 mg daily, diltiazem 180 mg daily, folic acid daily, lactulose 30 grams b.i.d., Keppra 500 mg b.i.d., Namenda 5 mg b.i.d., pravastatin 10 mg daily, Seroquel 25 mg at bedtime, Renvela 800 mg t.i.d. ALLERGIES: NKDA. FAMILY HISTORY: Nothing of interest. SOCIAL HISTORY: Patient lives at [facility]. No history of smoking. No history of alcohol intake. REVIEW OF SYSTEMS: Cardiovascular: Has chest pain. No shortness of breath. Respiratory: No fever or cough. Gastrointestinal: No nausea or vomiting. No abdominal pain. Genitourinary: No dysuria or hematuria. Central nervous system: No headache, no dizziness. PHYSICAL EXAMINATION: GENERAL: The patient is alert, awake, not well oriented. VITAL SIGNS: Temperature 98, pulse 130, respirations 20, blood pressure 109/60. HEENT: Head is normocephalic, atraumatic. Pupils equal and reactive to light. Nasopharynx is pale and dry. Hard and soft palate, no lesions seen. SKIN: Skin turgor decreased. NECK: Supple. No JVD. LUNGS: Bilateral air entry present. No rales, no rhonchi. CARDIAC: S1, S2 irregularly irregular. ABDOMEN: Soft, no tenderness. Normal bowel sounds. CENTRAL NERVOUS SYSTEM: Patient is alert, awake, not well oriented. Motor system power 4/5 in all extremities. Deep tendon reflexes 2+ bilaterally. Plantars downgoing. Sensory intact. LABORATORY DATA AND X-RAY FINDINGS: CBC showed WBC 7.3, hemoglobin 11, hematocrit 31, platelets 184. Metabolic panel: Sodium 140, potassium 3.6, chloride 101, CO2 of 26, , creatinine 8.2, glucose 120. CK-MB 0.8, troponin I 0.072. EKG shows atrial fibrillation with rapid ventricular rate with heart rate of 132. No acute ST-T wave changes seen. Chest x-ray, cardiomegaly. ASSESSMENT: 1. Atrial fibrillation with rapid ventricular rate. 2. Chest pain, rule out myocardial infarction. 3. End-stage renal disease on hemodialysis. 4. Hypertension. 5. Diabetes mellitus- insulin dependent. 6. History of hyperammonemia. PLAN: 1. Vital signs q.4 hours. 2. Activity: As tolerated. 3. Allergies: NKDA. 4. Hep-Lock. 5. Cardizem infusion 5 mg per hour. 6. We will get ammonia level. 7. Continue intermediate medications and Cardiology consult. 8. Nephrology consult. ZAMZAM
[2017-10-08] MEDS: levETIRAcetam 500 MG TAB PO SCH (08:06)
[2017-10-08] MEDS: Diltiazem HCl SR 90 mg Capsule PO SCH (08:06)
[2017-10-08] MEDS: Sevelamer Carbonate 800 MG TAB PO SCH ×3 (08:08→18:05)
[2017-10-08] MEDS ORDERED: Folic Acid/Vit B Comp W-C PO SCH (09:00)
[2017-10-08] MEDS ORDERED: Cinacalcet HCl 30 MG TAB PO SCH (09:00)
[2017-10-08] MEDS ORDERED: ADENOSINE 60 MG/20 ML VIAL ONE (10:08)
[2017-10-08] MEDS: Artificial Tear Sol 15 ML BOT EA EYE SCH (10:57)
[2017-10-08] MEDS: Carvedilol 6.25 MG TAB PO SCH (10:57)
--- NOTE | 2017-10-08 11:00 | PRG ---
DATE OF SERVICE: 10/08/2017 SUBJECTIVE: Patient was seen and examined at bedside and overnight events noted. Patient denies any shortness of breath or chest pain or palpitation. No history of nausea or vomiting or diarrhea or f ever or chills or cramps. OBJECTIVE: GENERAL: This is a well-built female in no apparent distress. VITAL SIGNS: Temperature 98.5, pulse 69, respiratory rate 16, blood pressure 114/54. HEENT: Atraumatic, normocephalic. Oral mucosa is moist. NECK: Supple. CARDIOVASCULAR: S1, S2 heard. Rate and rhythm regular. RESPIRATORY: Clear to auscultation. GASTROINTESTINAL: Abdomen is soft. MUSCULOSKELETAL: No tenderness. No edema. DERMATOLOGIC: No skin rash. NEUROLOGIC: Alert and awake and oriented x3. No focal neurologic deficits. Moving all the extremiti es. PSYCHIATRIC: Mood and affect normal. LABORATORY: Not done today. ASSESSMENT AND PLAN: 1. End-stage renal disease, continue on dialysis Wednesday, Wednesday and Wednesday. 2. Hypertension, stable and monitor. 3. Edema. 4. Cardiorenal syndrome continue on dialysis as tolerated.
--- NOTE | 2017-10-08 12:08 | NM ---
CARDIAC SPECT: CLINICAL HISTORY: 62-year-old female with chest pain, coronary artery disease, end-stage renal disease, hypertension, d iabetes, and dyslipidemia. TECHNIQUE: A myocardial perfusion scan was performed using the single isotope one day protocol with technetium-9 9m sestamibi. 10 mCi were injected intravenously for the rest exam followed by 32 mCi for the stress exam. Pharmacologic stress with Adenosine was monitored and interpreted by Dr. Florentino. FINDINGS: Homogeneous tracer distribution is seen in the myocardial segments on stress and rest images without fixed or reversible defects. GATED SPECT LVEF: 85%. WALL MOTION EXAM: Normal. IMPRESSION: Normal myocardial perfusion scan. POS: NOAH
--- NOTE | 2017-10-08 12:30 | PRG ---
DATE OF SERVICE: 10/08/2017 SUBJECTIVE: Ms. Forrest seems to be doing fairly well today. She is sitting upright in bed when I bonita t to see her. She is alert to time, person, place, and year, but remains disoriented to situation an d specifics about the plan of care for her. She denies any heart racing, palpitations, chest pain, p ressure, syncope, near syncope, strike or stroke like symptoms to the best of her recollection, but a review of systems is somewhat difficult to her limited cognitive status and dementia. OBJECTIVE: VITAL SIGNS: Today, temperature 98.7, pulse 76, blood pressure 112/56, respirations 14, and oxygen i s 96% on room air. GENERAL: She is awake and alert, oriented to time, person, place, and year, disoriented to situation . HEENT: She is normocephalic, atraumatic. Sclerae are anicteric. EOMs are intact. NECK: Supple without jugular venous distention. LUNGS: Clear to auscultation. HEART: Rate is regularly regular. PMI is nondisplaced. She does not have any swelling of the extre mities or edema. ABDOMEN: Soft, nontender. She is tolerating p.o. intake. NEUROLOGIC: Grossly intact and nonfocal. DATABASE: Telemetry shows normal sinus rhythm this morning. LABORATORY DATA: No new labs were done. IMPRESSION: 1. Paroxysmal atrial arrhythmias. 2. Poor candidate for oral anticoagulation. 3. End stage renal disease. 4. End-stage liver disease. 5. Dementia and encephalopathy. RECOMMENDATIONS: Continue supportive care for now. She is a very poor candidate for invasive ablati on procedures and also has very limited options if atrial appendage closure devices were considered. For now, we would continue with p.o. diltiazem and beta blockers as tolerated.
--- NOTE | 2017-10-08 13:51 | CON ---
DATE OF CONSULTATION: 10/07/2017 REFERRING PHYSICIAN: Carole Banks M.D. REASON FOR CONSULTATION: Atrial arrhythmias. HISTORY OF PRESENT ILLNESS: Ms. Forrest is a 62-year-old female with a complicated past [facility] history. She was brought to the hospital for evaluation from dialysis because of tachycardia and chest pain. While in the emergency room, she was found to be in atrial fibrillation with RVR and ve ntricular rates in the 130 range. She was given IV diltiazem as well as digoxin followed by initiati on of diltiazem drip. She was admitted for further evaluation and observation. While on diltiazem d rip she spontaneously converted to sinus rhythm. She has a complicated past medical history and alte red mental status secondary to dementia. Today, she is generally without complaint. She knows that she is in [facility] and can tell me the year is 2018. REVIEW OF SYSTEMS: Review of systems is quite limited, although she does not have any specific cardi ac concerns or complaints. She denies any chest pain or heart racing, palpitations right now. She d oes not remember any passing out episodes or does not have any concerns or stroke-like symptoms to th e best of her recollection. REVIEW OF SYSTEMS: Twelve point review of systems was conducted and is negative except that listed i n the HPI. PAST MEDICAL HISTORY: 1. Atrial arrhythmias, diagnosed in 01/2015. 2. End-stage renal disease on dialysis. 3. Hyperammonemia. 4. Hypertension. 5. Diabetes mellitus. 6. Seizures. 7. Dementia. 8. Liver failure. 9. Metabolic encephalopathy. PAST SURGICAL HISTORY: Hysterectomy, mastectomy and AV shunt. ALLERGIES: No known allergies. CURRENT MEDICATIONS: Coreg 6.25 mg b.i.d., Sensipar 30 mg daily, diltiazem 180 mg daily, folic acid daily, lactulose 30 grams b.i.d., Keppra 500 mg b.i.d., Namenda 5 mg b.i.d., pravastatin 10 mg daily, Seroquel 25 mg at bedtime, Renvela 800 mg t.i.d. FAMILY HISTORY: Negative for sudden cardiac or early onset coronary artery disease to the best of her recollection and chart review. SOCIAL HISTORY: [facility] a [facility]. History negative for alcohol or tobacco use . PHYSICAL EXAMINATION: VITAL SIGNS: Most recent vital signs 98.9 degrees Fahrenheit, pulse 76, blood pressure 109/57, respi rations 16, oxygen sat is 97% on room air. GENERAL: This is a chronically ill-appearing woman who is fairly unkempt and disoriented. She is aw levi and alert and as mentioned can tell me her name, location and year, but is very disoriented to si tuation. HEENT: She is normocephalic, atraumatic. Pupils are equal and reactive to light and accommodating. Oral mucosa is moist and pink with very poor dentition. NECK: Supple without jugular venous distention. Thyroid is nonpalpable. LUNGS: Clear to auscultation bilaterally without wheezes, crackles or rhonchi. CARDIOVASCULAR: Rate is irregularly irregular. PMI is nondisplaced. EXTREMITIES: Warm and dry to touch without clubbing, cyanosis or edema. ABDOMEN: Soft, nontender without palpable masses. There are positive bowel sounds throughout. Hep atojugular reflex is negative. NEUROLOGIC: Nonfocal. Gait was not assessed. DATABASE: Review of telemetry and EKGs reveal atrial flutter, possibly typical while in the emergenc y room with spontaneous conversion to normal sinus rhythm which she currently is holding. LABORATORY DATA: WBC 7.3, hemoglobin 11, hematocrit 31, platelet count is 184. Sodium 140, potassiu m 3.6, chloride 101, CO2 26, creatinine is 8.0. IMPRESSION: 1. Atrial flutter, possibly typical with spontaneous conversion to sinus rhythm with IV diltiazem. 2. History of paroxysmal atrial fibrillation diagnosed in 01/2012. 3. End-stage renal disease. 4. End-stage liver disease. 5. Hepatic encephalopathy. 6. Hyperammonemia. PLAN: 1. Continue with a conservative rate control strategy with AV nelsy blocking agents. Resume p.o. di ltiazem and decrease beta blockers as tolerated. 2. Poor ablation candidate. 3. Poor candidate for oral anticoagulation because of her end-stage liver and end-stage renal diseas e. 4. Limited options for left atrial appendage closure due to her inability to safely take oral antico agulation. Overall, I would recommend conservative therapy at this time with rate control and as mentioned, as s he is very high risk for bleeding complications if OAC's were started with her end-stage renal and li chong disease. Thank you for allowing us to participate in the care of this patient. We will continue to follow.
[2017-10-08 18:03] VITALS: BP 111/55; TEMP 98.8
--- NOTE | 2017-10-11 13:33 | DIS ---
DATE OF ADMISSION: 10/07/2017 DATE OF DISCHARGE: 10/08/2017 ADMITTING DIAGNOSES: 1. Atrial fibrillation with rapid ventricular rate. 2. Chest pain, rule out myocardial infarction. 3. End stage renal disease, on hemodialysis. 4. Hypertension. 5. Diabetes mellitus, insulin-dependent. 6. History of hyperammonemia. FINAL DIAGNOSES: 1. Atrial fibrillation with rapid ventricular rate, converted to normal sinus rhythm. 2. Chest pain. No evidence of acute myocardial infarction, negative Cardiolite stress test. 3. End stage renal disease, on hemodialysis. 4. Hypertension. 5. Diabetes mellitus. 6. Hyperammonemia. BRIEF SUMMARY OF HOSPITAL COURSE: Lindsey Forrest is a 62-year-old female admitted because of rapid heart rate and chest pain. The patient was found to be in atrial fibrillation with rapid ventricular rate. The patient was given Cardizem and started on infusion. Later she converted to sinus rhythm. The patient was seen by patient observer, Dr. Banks, he suggested switched to p.o. Cardizem and stress testing to evaluate for coronary artery disease. The patient underwent Cardiolite stress testing reported negative for ischemia. An echocardiogram was also done showed normal LV function with ejection fraction of 65%. The patient was also seen by EPS specialist, Dr. Vidales. He felt patient possibly has atrial flutter. He felt the patient is a poor ablation candidate, also poor candidate for anticoagulation. needs to be on conservative therapy and start Cardizem p.o. Heart rate was controlled. The chest pain resolved. In view of improvement, the patient was discharged back to group home. At the time of discharge, she was stable. Her vital signs stable. Lungs were clear. Heart sounds regular. Abdomen was soft and nontender. Bowel sounds present. DISCHARGE MEDICATIONS: Include Namenda 5 mg b.i.d., Cardizem 90 mg b.i.d., Keppra 500 b.i.d., Seroquel 25 mg at bedtime, Renvela 800 mg t.i.d., Sensipar 30 mg daily, folic acid daily, lactulose 30 g b.i.d., Pravachol 10 mg at bedtime. FOLLOWUP: The patient will be followed up in 2 weeks. [facility]
== END 2017-10-08 18:27 ==
LOC: ERS 16:44 → 2SW 10-07 00:34
PROVIDERS: ADMIT Internal Medicine; ATTEND Internal Medicine
DX: R07.9 Chest pain, unspecified (principal); I48.0 Paroxysmal atrial fibrillation; I12.0 Hypertensive chronic kidney disease with stage 5 chronic kidney disease or end stage renal disease; E11.22 Type 2 diabetes mellitus with diabetic chronic kidney disease; N18.6 End stage renal disease; D63.1 Anemia in chronic kidney disease; E72.20 Disorder of urea cycle metabolism, unspecified; F03.90 Unspecified dementia, unspecified severity, without behavioral disturbance, psychotic disturbance, mood disturbance, and anxiety; F41.9 Anxiety disorder, unspecified; I25.10 Atherosclerotic heart disease of native coronary artery without angina pectoris; R41.82 Altered mental status, unspecified; K72.90 Hepatic failure, unspecified without coma; Z87.891 Personal history of nicotine dependence; Z99.2 Dependence on renal dialysis; Z79.899 Other long term (current) drug therapy; Z88.0 Allergy status to penicillin; Z95.5 Presence of coronary angioplasty implant and graft; Z79.4 Long term (current) use of insulin
CPT/HCPCS: 71045; 78452; 80053; 82140; 82550; 82553; 82962 ×2; 84484 ×2; 85025; 86706; 87340; 93005; 93017; 93306; 94760; 96365; 96366 ×2; 96367; 96372; 96375; 99285; A9500; G0378 ×2; 36415; 36416; 90935; A4216; G0257; J0153; J1160; J1650; J1815; J3475; J7050

== ENCOUNTER 2017-10-29 15:56 | Inpatient (IN) | payer MEDICARE, MEDICAID ==
[2017-10-29 17:18] LABS: Hemoglobin 7.4 g/dL (12.0-16.0); Mean Corpuscular HGB CONC 36.3 g/dL (32.0-36.0); Mean Corpuscular Hemoglobin 33.8 pg (27.0-31.0); Mean Corpuscular Volume 93.3 fL (78.0-98.0); Mean Platelet Volume 6.4 fL (7.4-10.4); Platelet Count 167 thou/uL (130-400); Red Blood Cell (RBC) Count 2.17 mill/uL (4.20-5.40); White Blood Cell (WBC) Count 3.3 thou/uL (4.8-10.8)
[2017-10-29 17:32] LABS: Anisocytosis SLIGHT = 6-15 cells (100X) (0-5/hpf); Band 3 % (5-11); Eosinophils 1 % (0-10); Lymphocytes 34 % (21-51); MDiff Complete? YES; Monocytes 2 % (0-10); Neutrophil 60 % (42-75); PLT Morphology Comment Appears Adequate
[2017-10-29 17:37] LABS: ALT (SGPT) 13 U/L (8-55); AST (SGOT) 19 U/L (5-34); Albumin 2.9 g/dL (3.4-4.8); Alkaline Phosphatase 88 U/L (40-150); Anion Gap 12 mmol/L (10-20); BUN (Urea Nitrogen) 6 mg/dL (9.8-20.1); Bilirubin, Total 0.9 mg/dL (0.2-1.2); Calc. Creatinine Clearance 0 mL/min (70-130); Calcium 7.9 mg/dL (7.8-10.44); Carbon Dioxide 30 mmol/L (23-31); Chloride 100 mmol/L (98-107); Estimated GFR-MDRD 20; Globulin 2.8 g/dL (2.4-3.5); Glucose 226 mg/dL (80-115); Protein, Total 5.7 g/dL (6.0-8.3); Sodium 139 mmol/L (136-145)
[2017-10-29 17:38] LABS: CKMB 0.4 ng/mL (0-6.6); Troponin I 0.018 ng/mL (< 0.028)
[2017-10-29 17:40] LABS: Potassium 2.9 mmol/L (3.5-5.1)
[2017-10-29] MEDS ORDERED: Potassium Chloride 20 MEQ in Premix Bag 1 BAG IVPB SCH (18:15)
[2017-10-29] MEDS ORDERED: Potassium Chloride 20 MEQ TAB ONE (18:36)
[2017-10-29] MEDS ORDERED: Morphine 4 MG/ML VIAL ONE (19:47)
--- NOTE | 2017-10-29 21:34 | ULT ---
ULTRASOUND PELVIS DOPPLER DUPLEX: 10/29/17 HISTORY: 62-year-old female with menorrhagia and pelvic pain. TECHNIQUE: Kumar scale and color flow evaluation of intrapelvic contents, using transabdominal transducer. A monk svaginal ultrasound was not performed. FINDINGS: The uterus measures approximately 11 x 4.5 x 6 cm. The myometrium is diffusely heterogeneous in echogenicity and echotexture. There is a central region of heterogeneously increased echogenicity in the uterine body and fundus that measures approximately 2.7 cm anteroposterior (27 mm). This may be a severely thickened endometrial stripe. The other possib ilities is that this could be a uterine fibroid. The ovaries are difficult to distinguish from adjacent myometrial tissue on these images. There does not appear to be ovarian enlargement. No free fluid in the cul-de-sac. Urinary bladder appears unrema rkable. IMPRESSION: A finding within the uterus which could either be a severely thickened endometrial stripe, in which c ase this would be highly suspicious for endometrial carcinoma; or a uterine leiomyoma (fibroid). Give n the history of postmenopausal vaginal bleeding, endometrial carcinoma is favored. POS: YONAS
[2017-10-29 22:38] LABS: Anion Gap 11 mmol/L (10-20); BUN (Urea Nitrogen) 7 mg/dL (9.8-20.1); Calc. Creatinine Clearance 0 mL/min (70-130); Carbon Dioxide 30 mmol/L (23-31); Chloride 103 mmol/L (98-107); Estimated GFR-MDRD 17; Glucose 84 mg/dL (80-115); Potassium 4.1 mmol/L (3.5-5.1); Sodium 140 mmol/L (136-145)
[2017-10-29] MEDS ORDERED: Ondansetron HCl/PF 4 MG/2 ML Vial IVP PRN (23:35)
[2017-10-29] MEDS ORDERED: Ondansetron ODT 4 MG TAB SL PRN (23:35)
[2017-10-29] MEDS ORDERED: Morphine 4 MG/ML VIAL SLOW IVP PRN (23:35)
[2017-10-29 23:39] VITALS: BMI 25.2
--- NOTE | 2017-10-30 05:13 | CON ---
DATE OF CONSULTATION: 10/29/2017 REFERRING PHYSICIAN: David Chadwick M.D. CHIEF COMPLAINT: Vaginal bleeding. HISTORY OF PRESENT ILLNESS: The patient is a 62-year-old female who is being cared for at a halfway in [place], [place], who came to the emergency room this evening. The patient is an unreliable h istorian and was not able to get a lot of information that I could rely on completely. I was called to the emergency room with patient having vaginal bleeding, mild at the time over the course of the e mergency room stay. Given the patient's postmenopausal state and presence of bleeding, an ultrasound was performed by the ER physician demonstrating a 2.7 cm endometrial stripe. In speaking with the stacey langford, the patient reports that she has bleeding, vaginal bleeding anywhere between 2 months and man y, many years. She reports she has vaginal itching and discomfort. The patient denies any medical p roblems, but when asked directly admits to diabetes and in the process of evaluation discovered a fis destini on the left and reports that she has dialysis 3 times a week. I shared with patient, the presen ce of a thick endometrial stripe on the ultrasound and discussed the meaning of that and the increase d risk for an endometrial cancer. I asked for permission to perform an endometrial biopsy and discus sed the risk of the biopsy including bleeding and infection and discomfort. The patient expressed ga ve permission and provided written informed consent. PHYSICAL EXAMINATION: VITAL SIGNS: Blood pressure 130/62, pulse of 80, respiratory rate of 18, satting 99% on room air, te mperature 98.4. GENERAL: The patient is pleasant, is interactive, but is difficult historian. The patient was placed in dorsal lithotomy position on a wedge. A plastic speculum was then placed v aginally and the cervix was identified. Approximately 10 mL of blood was present which was removed. Once the cervix was clearly visible at the os, the cervix was then cleaned with Betadine x3 and endo metrial pipette was then introduced to the cervix with passing fairly easily and sounding at approxim ately 10 cm. The initial passes revealed just old looking blood and very little tissue. Given the stacey langford's tolerance to the procedure, the pipette was passed, I think a total of 5 times until there a ppeared to be some tissue. At this point, the procedure was completed, the speculum was removed. Th e patient tolerated the procedure well and was covered up and taken off the wedge, these curettings w ill be sent to pathology for review. There is concern that she has some sort of malignancy. Once ose results are available, we can make further recommendations. Given the small amount of bleeding t hat was visible and the small amount of bleeding that was reported for her 5-hour stay in the emergen cy room thus far, there are no recommendations at this time for medical intervention to further slow the bleeding.
[2017-10-30] MEDS ORDERED: Prevnar 13-Val Conj/PF 0.5 ML SYRINGE IM ONE (09:00)
--- NOTE | 2017-10-30 10:20 | HP ---
DATE OF ADMISSION: 10/29/2017 CHIEF COMPLAINT: Vaginal bleeding and anemia. HISTORY OF PRESENT ILLNESS: Ms. Adriane Portillo is a 62-year-old female with a past medical history of end-stage renal disease and hyperammonemia , who was brought in because of severe anemia. The patient was found to have hemoglobin of 7.4. The patient has been having intermittent vaginal bleeding . Since drop in H&H, and the patient was feeling weak and being symptomatic, she was sent to the hospital. In the ER, the patient was evaluated and found to have anemia, symptomatic, vaginal bleeding. PATTERN GRADER SUPERVISOR consult was done. The patient was seen by the ferryboat captain and ordered pelvic exam as well as biopsy of the uterus, which are suspicious for malignancy. The patient was transfused with 1 unit of packed red blood cells and admitted for further evaluation and management. The patient does have some lower abdominal pain also. PAST MEDICAL HISTORY: 1. End-stage renal disease on hemodialysis. 2. Hyperammonemia. 3. Hypertension. 4. Diabetes mellitus. 5. Recent seizure. 6. Dementia. 7. History of atrial fibrillation on recent admission. PAST SURGICAL HISTORY: 1. Status post mastectomy. 2. Status post AV shunt. CURRENT MEDICATIONS: Patient is on Coreg 6.25 b.i.d., Sensipar 30 mg daily, diltiazem 90 mg b.i.d., folic acid daily, lactulose 30 grams b.i.d., Keppra 500 b.i.d., Namenda 5 mg daily, pravastatin 10 mg daily, Seroquel 25 mg at bedtime, Renvela 800 mg t.i.d. ALLERGIES: No known drug allergies. FAMILY HISTORY: Nothing of interest. SOCIAL HISTORY: Patient lives in correction. No history of smoking. No history of alcohol intake. REVIEW OF SYSTEMS: Unremarkable except for the weakness and abdominal pain. PHYSICAL EXAMINATION: GENERAL: The patient is alert, awake, but not well oriented. VITAL SIGNS: Temperature 98, pulse 79, respiration 20, blood pressure 170/70. HEENT: Head is normocephalic, atraumatic. Pupils equal and reactive to light. Nasopharynx is pale and dry. Hard and soft palate, no lesions seen. SKIN: Skin turgor decreased. NECK: Supple. No JVD. LUNGS: Bilateral air entry present, no rales, no rhonchi. HEART: S1, S2 regular. ABDOMEN: Soft, mildly tender in the lower abdomen. No guarding, no rigidity. Bowel sounds present. RECTAL: Deferred. CENTRAL NERVOUS SYSTEM: No focal deficits. LABORATORY DATA AND X-RAY FINDINGS: CBC shows WBC 3.3, hemoglobin 7.4, hematocrit 20, platelets 167. Metabolic panel: Sodium 140, potassium 2.9, chloride 103, CO2 30, BUN 7, creatinine of 2.8, glucose 184. Pelvic ultrasound was done in the ER revealed there is a thickened endometrial stripe in the uterus, highly suspicious for endometrial carcinoma. EKG shows normal sinus rhythm, no acute ST-T wave changes seen. ASSESSMENT: 1. Severe anemia, symptomatic. 2. Vaginal bleeding, possibly endometrial cancer. 3. End-stage renal disease, on hemodialysis. 4. Hyperammonemia. 5. History of atrial fibrillation. 6. Hypertension. 7. Diabetes. 8. Dementia. PLAN: 1. Vital signs q.4 hours. 2. Activity as tolerated. 3. Allergies: No known drug allergies. 4. Hep-Lock. 5. Transfuse 1 unit of packed red blood cells. 6. CBC and base met in the morning. 7. Continue correction medication. 8. Renal diet. 9. Nephrology consult. MTDD
[2017-10-30] MEDS ORDERED: Ondansetron ODT 4 MG TAB SL PRN (11:07)
[2017-10-30] MEDS ORDERED: Ondansetron HCl/PF 4 MG/2 ML Vial SLOW IVP PRN (11:08)
[2017-10-30 11:31] LABS: #Basophils 0.1 thou/uL (0.0-0.2); #Eosinphils 0.2 thou/uL (0.0-0.7); #Lymphocytes 1.4 thou/uL (1.20-3.40); #Monocytes 0.6 thou/uL (0.11-0.59); #Neutrophils 1.6 thou/uL (1.40-6.50); %Basophils 1.6 % (0.0-1.0); %Eosinophils 5.4 % (0.0-10.0); %Lymphocytes 35.9 % (21.0-51.0); %Monocytes 14.4 % (0.0-10.0); %Neutrophils 42.7 % (42.0-75.0); Hemoglobin 8.3 g/dL (12.0-16.0); Mean Corpuscular HGB CONC 35.5 g/dL (32.0-36.0); Mean Corpuscular Hemoglobin 33.8 pg (27.0-31.0); Mean Corpuscular Volume 95.3 fL (78.0-98.0); Platelet Count 140 thou/uL (130-400); RBC Distribution Width 13.7 % (11.5-14.5); Red Blood Cell (RBC) Count 2.47 mill/uL (4.20-5.40); White Blood Cell (WBC) Count 3.8 thou/uL (4.8-10.8)
[2017-10-30 11:48] LABS: Anion Gap 11 mmol/L (10-20); BUN (Urea Nitrogen) 11 mg/dL (9.8-20.1); Calc. Creatinine Clearance 15 mL/min (70-130); Carbon Dioxide 31 mmol/L (23-31); Chloride 103 mmol/L (98-107); Estimated GFR-MDRD 11; Glucose 190 mg/dL (80-115); Sodium 141 mmol/L (136-145)
[2017-10-30] MEDS: Sevelamer Carbonate 800 MG TAB PO SCH ×2 (12:28→16:22)
--- NOTE | 2017-10-30 13:02 | PDOC.EVN ---
Event Note - Event Note Event Note: Following up after EMB done by Dr. Rubio last night. No specific c/o now. BP= 150/58, P= 78, Tnow= 99. Abdomen is NT. Only a small amt. of vaginal bleeding is seen. Result of EMB is pending.
--- NOTE | 2017-10-30 14:08 | CON ---
DATE OF CONSULTATION: 10/30/2017 REASON FOR CONSULTATION: End-stage renal disease, on maintenance hemodialysis. HISTORY OF PRESENT ILLNESS: This is a very pleasant 62-year-old female who presented to the hospital with vaginal bleeding. The patient dialyzes Wednesday, Wednesday, and Wednesday. Patient dialyzed yester day. Patient was given 1 unit of blood. The patient has chronic dementia and has very poor prognosi s. The patient can give no further history. PAST MEDICAL HISTORY: Significant for end-stage renal disease, hypertension, diabetes mellitus, seiz ure, dementia, atrial fibrillation, mastectomy, AV shunt. HOME MEDICATIONS: Reviewed. HOSPITAL MEDICATIONS: Reviewed. ALLERGIES: Reviewed. REVIEW OF SYSTEMS: Unobtainable. PHYSICAL EXAMINATION: GENERAL: Patient is resting. VITAL SIGNS: Afebrile, pulse 80, breathing at 16, blood pressure . GENERAL APPEARANCE AND MENTAL STATUS: Fair. HEAD/NECK: Normocephalic. Atraumatic. EYES: EOMI. No deformity. EARS: Clear. No ulcers. NOSE: Intact. No lesions. MOUTH: Clear. No discharge. THROAT: Clear. No exudate. LUNGS: Clear. No crackles. CARDIAC: S1, S2. No rub. ABDOMEN: Benign. BS+. GENITALIA/RECTUM: Bansal absent. BACK/EXTREMITIES: Edema 0+ Ulcer-. NEUROLOGICAL: Alert and motor intact. SKIN: Rash- Bruise- LYMPHATICS: Edema- Ulcer-. LABORATORY DATA: Show hemoglobin 7.4, potassium 4.1. ASSESSMENT AND RECOMMENDATIONS: 1. Stage 6 chronic kidney disease, no indication for dialysis. 2. Hypertension, stable. 3. Anemia, stable. 4. Hypokalemia, stable. We will follow the patient closely.
[2017-10-30] MEDS: Artificial Tear Sol 15 ML BOT EA EYE SCH (20:54)
[2017-10-30] MEDS: Carvedilol 6.25 MG TAB PO SCH (20:54)
[2017-10-30] MEDS: Diltiazem HCl SR 90 mg Capsule PO SCH (20:54)
[2017-10-30] MEDS: levETIRAcetam 500 MG TAB PO SCH (20:57)
[2017-10-30] MEDS: Simvastatin 5 MG TAB PO SCH (20:57)
[2017-10-31 05:26] LABS: #Basophils 0.1 thou/uL (0.0-0.2); #Eosinphils 0.3 thou/uL (0.0-0.7); #Lymphocytes 1.8 thou/uL (1.20-3.40); #Monocytes 0.6 thou/uL (0.11-0.59); #Neutrophils 2.1 thou/uL (1.40-6.50); %Basophils 1.3 % (0.0-1.0); %Lymphocytes 37.6 % (21.0-51.0); %Monocytes 12.8 % (0.0-10.0); %Neutrophils 42.4 % (42.0-75.0); Hemoglobin 8.3 g/dL (12.0-16.0); Mean Corpuscular HGB CONC 35.4 g/dL (32.0-36.0); Mean Corpuscular Hemoglobin 33.8 pg (27.0-31.0); Mean Corpuscular Volume 95.6 fL (78.0-98.0); Mean Platelet Volume 6.8 fL (7.4-10.4); Platelet Count 174 thou/uL (130-400); RBC Distribution Width 13.3 % (11.5-14.5); Red Blood Cell (RBC) Count 2.46 mill/uL (4.20-5.40); White Blood Cell (WBC) Count 4.9 thou/uL (4.8-10.8)
[2017-10-31 05:44] LABS: Anion Gap 13 mmol/L (10-20); BUN (Urea Nitrogen) 16 mg/dL (9.8-20.1); Calc. Creatinine Clearance 12 mL/min (70-130); Calcium 7.9 mg/dL (7.8-10.44); Carbon Dioxide 26 mmol/L (23-31); Chloride 106 mmol/L (98-107); Estimated GFR-MDRD 8; Glucose 114 mg/dL (80-115); Potassium 4.2 mmol/L (3.5-5.1); Sodium 141 mmol/L (136-145)
[2017-10-31] MEDS: Artificial Tear Sol 15 ML BOT EA EYE SCH ×2 (08:45→20:52)
[2017-10-31] MEDS: Carvedilol 6.25 MG TAB PO SCH ×2 (08:46→20:52)
[2017-10-31] MEDS: Sevelamer Carbonate 800 MG TAB PO SCH ×3 (08:46→16:25)
[2017-10-31] MEDS: Cinacalcet HCl 30 MG TAB PO SCH (08:47)
[2017-10-31] MEDS: levETIRAcetam 500 MG TAB PO SCH ×2 (08:47→20:53)
[2017-10-31] MEDS: Folic Acid/Vit B Comp W-C PO SCH (08:47)
[2017-10-31] MEDS: Diltiazem HCl SR 90 mg Capsule PO SCH ×2 (11:50→20:53)
--- NOTE | 2017-10-31 13:31 | PRG ---
DATE OF SERVICE: 11/01/2017 SUBJECTIVE: This is a 62-year-old female being seen for end-stage renal disease. The patient denies any nausea, vomiting, or chest pain. PHYSICAL EXAMINATION: GENERAL: Patient is awake, alert. VITAL SIGNS: Afebrile, pulse 70, breathing at 16, blood pressure 132/70. HEAD/NECK: Normocephalic. Atraumatic. EYES: EOMI. No deformity. EARS: Clear. No ulcers. NOSE: Intact. No lesions. MOUTH: Clear. No discharge. THROAT: Clear. No exudate. LUNGS: Clear. No crackles. CARDIAC: S1, S2. No rub. ABDOMEN: Benign. BS+. GENITALIA/RECTUM: Bansal absent. BACK/EXTREMITIES: Edema 0+ Ulcer- NEUROLOGICAL: Alert and motor intact. SKIN: Rash- Bruise- LYMPHATICS: Edema- Ulcer- LABORATORY DATA: Show hemoglobin 8.3, creatinine 5. ASSESSMENT AND PLAN: 1. Stage 6 chronic kidney disease. We will plan dialysis per schedule Wednesday, Wednesday, and Wednesday . 2. Hypertension, stable. 3. Anemia, stable. 4. Medications based on glomerular filtration rate are appropriate.
[2017-10-31] MEDS ORDERED: Dextrose 5% in Water 1,000 ML IV PRN (15:53)
[2017-10-31] MEDS ORDERED: Dextrose 50% Abboject 50 ML SYRINGE IVP PRN (15:53)
[2017-10-31] MEDS: Simvastatin 5 MG TAB PO SCH (20:53)
[2017-11-01 05:43] LABS: #Basophils 0.1 thou/uL (0.0-0.2); #Eosinphils 0.3 thou/uL (0.0-0.7); #Lymphocytes 2.1 thou/uL (1.20-3.40); #Monocytes 0.6 thou/uL (0.11-0.59); #Neutrophils 2.2 thou/uL (1.40-6.50); %Basophils 1.2 % (0.0-1.0); %Eosinophils 6.1 % (0.0-10.0); %Lymphocytes 39.1 % (21.0-51.0); %Monocytes 11.1 % (0.0-10.0); %Neutrophils 42.5 % (42.0-75.0); Hemoglobin 8.1 g/dL (12.0-16.0); Mean Corpuscular HGB CONC 34.8 g/dL (32.0-36.0); Mean Corpuscular Hemoglobin 33.3 pg (27.0-31.0); Mean Corpuscular Volume 95.7 fL (78.0-98.0); Mean Platelet Volume 6.6 fL (7.4-10.4); Platelet Count 173 thou/uL (130-400); RBC Distribution Width 13.4 % (11.5-14.5); Red Blood Cell (RBC) Count 2.42 mill/uL (4.20-5.40); White Blood Cell (WBC) Count 5.3 thou/uL (4.8-10.8)
[2017-11-01 06:05] LABS: Anion Gap 15 mmol/L (10-20); BUN (Urea Nitrogen) 23 mg/dL (9.8-20.1); Calc. Creatinine Clearance 10 mL/min (70-130); Calcium 7.9 mg/dL (7.8-10.44); Carbon Dioxide 21 mmol/L (23-31); Chloride 108 mmol/L (98-107); Estimated GFR-MDRD 7; Glucose 102 mg/dL (80-115); Potassium 4.3 mmol/L (3.5-5.1); Sodium 140 mmol/L (136-145)
[2017-11-01] MEDS: Sevelamer Carbonate 800 MG TAB PO SCH ×3 (08:30→16:34)
--- NOTE | 2017-11-01 11:26 | PRG ---
DATE OF SERVICE 11/01/2017 SUBJECTIVE: This is a 62-year-old female being seen for end-stage renal disease. The patient denies any nausea, vomiting or chest pain. PHYSICAL EXAMINATION: GENERAL: Patient is awake, alert. VITAL SIGNS: Afebrile, pulse 71, breathing 16, blood pressure 122/61. OBJECTIVE: See above. Awake, alert, in no acute distress. GENERAL APPEARANCE AND MENTAL STATUS: Fair. HEAD/NECK: Normocephalic. Atraumatic. EYES: EOMI. No deformity. EARS: Clear. No ulcers. NOSE: Intact. No lesions. MOUTH: Clear. No discharge. THROAT: Clear. No exudate. LUNGS: Clear. No crackles. CARDIAC: S1, S2. No rub. ABDOMEN: Benign. BS+. GENITALIA/RECTUM: Bansal absent. BACK/EXTREMITIES: Edema 0+ Ulcer- NEUROLOGICAL: Alert and motor intact. SKIN: Rash- Bruise- LYMPHATICS: Edema- Ulcer- LABORATORY DATA: Show hemoglobin 8.1. ASSESSMENT AND RECOMMENDATIONS: 1. Stage 6 chronic kidney disease, plan hemodialysis. 2. Hypertension, stable. 3. Anemia, stable. 4. Medication based on glomerular filtration rate are appropriate. Continue Epogen.
[2017-11-01] MEDS ORDERED: Epoetin (ESRD) 10,000 UNITS/ML VIAL SC SCH (12:00)
[2017-11-01] MEDS: Cinacalcet HCl 30 MG TAB PO SCH (16:27)
[2017-11-01] MEDS: Folic Acid/Vit B Comp W-C PO SCH (16:27)
[2017-11-01] MEDS: levETIRAcetam 500 MG TAB PO SCH ×2 (16:27→20:25)
[2017-11-01] MEDS: Carvedilol 6.25 MG TAB PO SCH ×2 (16:29→20:25)
[2017-11-01] MEDS: Artificial Tear Sol 15 ML BOT EA EYE SCH ×2 (16:30→20:25)
[2017-11-01] MEDS: Diltiazem HCl SR 90 mg Capsule PO SCH ×2 (17:16→20:25)
[2017-11-01] MEDS: Simvastatin 5 MG TAB PO SCH (20:25)
[2017-11-02 04:57] LABS: #Basophils 0.1 thou/uL (0.0-0.2); #Eosinphils 0.2 thou/uL (0.0-0.7); #Lymphocytes 1.7 thou/uL (1.20-3.40); #Monocytes 0.6 thou/uL (0.11-0.59); #Neutrophils 2.6 thou/uL (1.40-6.50); %Basophils 1.5 % (0.0-1.0); %Eosinophils 3.8 % (0.0-10.0); %Monocytes 11.6 % (0.0-10.0); Hemoglobin 8.4 g/dL (12.0-16.0); Mean Corpuscular HGB CONC 34.8 g/dL (32.0-36.0); Mean Corpuscular Hemoglobin 33.2 pg (27.0-31.0); Mean Corpuscular Volume 95.3 fL (78.0-98.0); Mean Platelet Volume 6.7 fL (7.4-10.4); Platelet Count 186 thou/uL (130-400); RBC Distribution Width 13.5 % (11.5-14.5); Red Blood Cell (RBC) Count 2.54 mill/uL (4.20-5.40); White Blood Cell (WBC) Count 5.2 thou/uL (4.8-10.8)
[2017-11-02 05:38] LABS: Anion Gap 11 mmol/L (10-20); BUN (Urea Nitrogen) 14 mg/dL (9.8-20.1); Calc. Creatinine Clearance 15 mL/min (70-130); Calcium 8.2 mg/dL (7.8-10.44); Carbon Dioxide 26 mmol/L (23-31); Chloride 106 mmol/L (98-107); Estimated GFR-MDRD 11; Glucose 110 mg/dL (80-115); Potassium 4.1 mmol/L (3.5-5.1); Sodium 139 mmol/L (136-145)
[2017-11-02] MEDS: Carvedilol 6.25 MG TAB PO SCH ×2 (08:48→20:37)
[2017-11-02] MEDS: Sevelamer Carbonate 800 MG TAB PO SCH ×3 (08:48→16:48)
[2017-11-02] MEDS: Diltiazem HCl SR 90 mg Capsule PO SCH ×2 (08:49→20:37)
[2017-11-02] MEDS: Cinacalcet HCl 30 MG TAB PO SCH (08:49)
[2017-11-02] MEDS: levETIRAcetam 500 MG TAB PO SCH ×2 (08:49→20:38)
[2017-11-02] MEDS: Folic Acid/Vit B Comp W-C PO SCH (08:49)
[2017-11-02] MEDS: Artificial Tear Sol 15 ML BOT EA EYE SCH ×2 (08:50→20:38)
--- NOTE | 2017-11-02 15:33 | PRG ---
DATE OF SERVICE: 11/02/2017 SUBJECTIVE: This is a 62-year-old female, being seen for end-stage renal disease. The patient denie s any nausea, vomiting, or chest pain. OBJECTIVE: See above. GENERAL: Patient is awake and alert. VITAL SIGNS: Afebrile, pulse , breathing at 16, blood pressure . GENERAL APPEARANCE AND MENTAL STATUS: Fair. HEAD/NECK: Normocephalic. Atraumatic. EYES: EOMI. No deformity. EARS: Clear. No ulcers. NOSE: Intact. No lesions. MOUTH: Clear. No discharge. THROAT: Clear. No exudate. LUNGS: Clear. No crackles. CARDIAC: S1, S2. No rub. ABDOMEN: Benign. BS+. GENITALIA/RECTUM: Bansal absent. BACK/EXTREMITIES: Edema 0+, ulcer. NEUROLOGICAL: Alert and motor intact. SKIN: Rash - bruise. LYMPHATICS: Edema - ulcer. LABORATORY DATA: Labs show hemoglobin 8.4, ____. ASSESSMENT AND RECOMMENDATIONS: 1. Stage 6 chronic kidney disease, stable. 2. Hypertension, stable. 3. Anemia, stable. 4. Medication based on GFR are appropriate. Plan dialysis per schedule.
[2017-11-02] MEDS: Insulin Regular 300 UNITS/3 ML VIAL SC PRN ×2 (17:09→21:58)
[2017-11-02] MEDS: Simvastatin 5 MG TAB PO SCH (20:37)
[2017-11-03] MEDS: Sevelamer Carbonate 800 MG TAB PO SCH ×3 (11:45→17:34)
[2017-11-03] MEDS: Artificial Tear Sol 15 ML BOT EA EYE SCH ×2 (14:20→19:49)
[2017-11-03] MEDS: Carvedilol 6.25 MG TAB PO SCH ×2 (14:21→19:45)
[2017-11-03] MEDS: Cinacalcet HCl 30 MG TAB PO SCH (14:21)
[2017-11-03] MEDS: levETIRAcetam 500 MG TAB PO SCH ×2 (14:22→19:45)
[2017-11-03] MEDS: Folic Acid/Vit B Comp W-C PO SCH (14:22)
[2017-11-03] MEDS: Diltiazem HCl SR 90 mg Capsule PO SCH ×2 (15:25→19:46)
--- NOTE | 2017-11-03 18:28 | PRG ---
DATE OF SERVICE: 11/03/2017 SUBJECTIVE: A 62-year-old female being seen for end-stage renal disease. The patient denies any marilyn sea, vomiting, or chest pain. PHYSICAL EXAMINATION: GENERAL: Patient is awake, alert. VITAL SIGNS: Pulse 75, breathing 16, blood pressure 115/55. HEAD/NECK: Normocephalic. Atraumatic. EYES: EOMI. No deformity. EARS: Clear. No ulcers. NOSE: Intact. No lesions. MOUTH: Clear. No discharge. THROAT: Clear. No exudate. LUNGS: Clear. No crackles. CARDIAC: S1, S2. No rub. ABDOMEN: Benign. BS+. GENITALIA/RECTUM: Bansal absent. BACK/EXTREMITIES: Edema 0+ Ulcer- NEUROLOGICAL: Alert and motor intact. SKIN: Rash- Bruise- LYMPHATICS: Edema- Ulcer- ASSESSMENT AND PLAN: 1. Stage 6 chronic kidney disease. We will plan dialysis tomorrow. 2. Hypertension, stable. 3. Anemia, stable. 4. Medications based on glomerular filtration rate are appropriate. We will plan dialysis today.
--- NOTE | 2017-11-03 19:13 | PDOC.EVN ---
Event Note - Event Note Event Note: I have reviewed the pathology results from Ms. Forrest's endometrial biopsy. For chronic endometritis, I recommend a course of doxycycline 100mg PO BID for 14 days. Her endometrial polyp can be managed on an outpatient basis. Please let us know if you need any further assistance with her gynecological complaints.
[2017-11-03] MEDS: Simvastatin 5 MG TAB PO SCH (19:44)
[2017-11-04 05:08] LABS: #Basophils 0.1 thou/uL (0.0-0.2); #Eosinphils 0.3 thou/uL (0.0-0.7); #Lymphocytes 2.6 thou/uL (1.20-3.40); #Monocytes 0.6 thou/uL (0.11-0.59); #Neutrophils 2.3 thou/uL (1.40-6.50); %Basophils 1.4 % (0.0-1.0); %Eosinophils 5.5 % (0.0-10.0); %Monocytes 10.1 % (0.0-10.0); %Neutrophils 38.9 % (42.0-75.0); Hemoglobin 9.5 g/dL (12.0-16.0); Mean Corpuscular HGB CONC 34.9 g/dL (32.0-36.0); Mean Corpuscular Hemoglobin 33.1 pg (27.0-31.0); Mean Corpuscular Volume 94.9 fL (78.0-98.0); Mean Platelet Volume 6.9 fL (7.4-10.4); Platelet Count 183 thou/uL (130-400); RBC Distribution Width 13.6 % (11.5-14.5); Red Blood Cell (RBC) Count 2.86 mill/uL (4.20-5.40); White Blood Cell (WBC) Count 5.9 thou/uL (4.8-10.8)
[2017-11-04 05:21] LABS: Anion Gap 11 mmol/L (10-20); BUN (Urea Nitrogen) 11 mg/dL (9.8-20.1); Calc. Creatinine Clearance 14 mL/min (70-130); Calcium 8.4 mg/dL (7.8-10.44); Carbon Dioxide 27 mmol/L (23-31); Chloride 104 mmol/L (98-107); Estimated GFR-MDRD 11; Glucose 96 mg/dL (80-115); Sodium 138 mmol/L (136-145)
[2017-11-04] MEDS: Artificial Tear Sol 15 ML BOT EA EYE SCH (10:18)
[2017-11-04] MEDS: Sevelamer Carbonate 800 MG TAB PO SCH ×2 (10:18→12:28)
[2017-11-04] MEDS: levETIRAcetam 500 MG TAB PO SCH ×2 (10:19→10:20)
[2017-11-04] MEDS: Carvedilol 6.25 MG TAB PO SCH (10:19)
[2017-11-04] MEDS: Cinacalcet HCl 30 MG TAB PO SCH (10:19)
[2017-11-04] MEDS: Folic Acid/Vit B Comp W-C PO SCH (10:20)
[2017-11-04] MEDS: Diltiazem HCl SR 90 mg Capsule PO SCH (10:33)
--- NOTE | 2017-11-04 10:42 | PRG ---
DATE OF SERVICE: 11/04/2017 SUBJECTIVE: This is a 62-year-old female being seen for end-stage renal disease. The patient denies any nausea, vomiting or chest pain. PHYSICAL EXAMINATION: GENERAL: Patient is awake, alert. VITAL SIGNS: Afebrile, pulse 60, breathing 16, blood pressure 120/57. OBJECTIVE: See above. Awake, alert, in no acute distress. GENERAL APPEARANCE AND MENTAL STATUS: Fair. HEAD/NECK: Normocephalic. Atraumatic. EYES: EOMI. No deformity. EARS: Clear. No ulcers. NOSE: Intact. No lesions. MOUTH: Clear. No discharge. THROAT: Clear. No exudate. LUNGS: Clear. No crackles. CARDIAC: S1, S2. No rub. ABDOMEN: Benign. BS+. GENITALIA/RECTUM: Bansal absent. BACK/EXTREMITIES: Edema 0+ Ulcer- NEUROLOGICAL: Alert and motor intact. SKIN: Rash- Bruise- LYMPHATICS: Edema- Ulcer- ASSESSMENT AND RECOMMENDATIONS: 1. Stage 6 end-stage renal disease. Continue hemodialysis Wednesday, Wednesday, and Wednesday. 2. Hypertension, stable. 3. Anemia, stable. 4. Medication based on glomerular filtration rate are appropriate.
[2017-11-04 12:28] VITALS: BP 112/59; TEMP 98.6
--- NOTE | 2017-11-05 12:57 | DIS ---
DATE OF ADMISSION: 10/29/2017 DATE OF DISCHARGE: 11/04/2017 ADMITTING DIAGNOSES: 1. Severe anemia, symptomatic. 2. Vaginal bleeding, possibly endometrial cancer. 3. End-stage renal disease, on hemodialysis. 4. Hyperammonemia. 5. History of atrial fibrillation. 6. Hypertension. 7. Diabetes mellitus. 8. Dementia. FINAL DIAGNOSES: 1. Severe anemia, symptomatic, improved, status post transfusion. 2. Vaginal bleeding due to chronic endometritis, no evidence of endometrial cancer. 3. End-stage renal disease, on hemodialysis. 4. Chronic atrial fibrillation, stable. 5. Dementia. 6. Diabetes mellitus. 7. Hypertension. BRIEF SUMMARY OF HOSPITAL COURSE: Ms. Forrest is a 62-year-old female admitted because of vaginal bleeding and anemia. The patient was found to have hemoglobin of 7 grams and the patient was symptomatic with weakness and dizziness. The patient was transfused with packed red blood cells. Her hemoglobin improved after transfusion. 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 The patient was seen by Dr. Rubio who did endometrial biopsy due to abnormal endometrium and the biopsy report came back as chronic endometritis, no evidence of endometrial cancer. The patient was started on doxycycline for endometritis. The patient's bleeding also resolved. Her anemia remained stable. The patient is tolerating diet. She is tolerating dialysis. In view of that, the patient is discharge. At the time of discharge , she was stable. Her vital signs were stable. Lungs were clear. Heart sounds regular. Abdomen soft, nontender. Bowel sounds present. DISCHARGE MEDICATIONS: Include Namenda 5 mg b.i.d., Coreg 6.25 b.i.d., Keppra 500 b.i.d., Seroquel 25 mg at bedtime, Renvela 800 mg t.i.d., Sensipar 30 mg daily, folic acid daily, lactulose 30 grams b.i.d., diltiazem 90 mg b.i.d., simvastatin 5 mg at bedtime, doxycycline 100 mg b.i.d. for 2 weeks. FOLLOWUP: The patient will be followed up in 2 weeks. [facility]
== END 2017-11-04 13:17 | DRG 987 ==
LOC: ERS 15:56 → 2NO 21:55
PROVIDERS: ADMIT Internal Medicine; ATTEND Internal Medicine
PROC: 30233N1 Transfusion of Nonautologous Red Blood Cells into Peripheral Vein, Percutaneous Approach (ICD-10-PCS; principal; 2017-10-29)
PROC: 0UDB7ZX Extraction of Endometrium, Via Natural or Artificial Opening, Diagnostic (ICD-10-PCS; 2017-10-29)
PROC: 5A1D70Z Performance of Urinary Filtration, Intermittent, Less than 6 Hours Per Day (ICD-10-PCS; 2017-11-01)
PROC: 5A1D70Z Performance of Urinary Filtration, Intermittent, Less than 6 Hours Per Day (ICD-10-PCS; 2017-11-03)
DX: D64.9 Anemia, unspecified (principal); N18.6 End stage renal disease; I12.0 Hypertensive chronic kidney disease with stage 5 chronic kidney disease or end stage renal disease; N71.1 Chronic inflammatory disease of uterus; E11.22 Type 2 diabetes mellitus with diabetic chronic kidney disease; F03.90 Unspecified dementia, unspecified severity, without behavioral disturbance, psychotic disturbance, mood disturbance, and anxiety; N93.9 Abnormal uterine and vaginal bleeding, unspecified; E87.6 Hypokalemia; Z99.2 Dependence on renal dialysis; N95.0 Postmenopausal bleeding; Z79.899 Other long term (current) drug therapy; I48.2 Chronic atrial fibrillation
CPT/HCPCS: 36415; 36416; 36430; 76856; 80048; 80053; 82140; 82553; 84484; 85025; 86850; 86900; 86901; 88305; 90471; 90670; 90935; 93005; 96361; 96374; G0009; G0257; J1815; J2270; J3480; P9016; Q4081

== ENCOUNTER 2018-03-23 18:17 | Emergency (ER) | payer MEDICARE, OTHER ==
--- NOTE | 2018-03-23 20:25 | RAD ---
FRONTAL AND LATERAL IMAGING OF THE LEFT FEMUR: 03/23/18 COMPARISON: None. HISTORY: Fall, trauma, pain. FINDINGS: There is atherosclerotic calcification within the left thigh. There is mild osteophyte formation invo lving the lateral aspect of the left acetabulum. There is no displaced fracture or evidence of disloc ation seen involving the femur. There is a fracture involving the patella. Recommend dedicated imagin g of the left knee. IMPRESSION: Left patellar fracture. POS: NOAH
--- NOTE | 2018-03-23 20:26 | RAD ---
FRONTAL AND LATERAL IMAGING OF THE LEFT TIBIA AND FIBULA 03/23/18 COMPARISON: None. HISTORY: Injury, trauma, pain. FINDINGS: There is a distracted fracture involving the junction of the middle third and inferior third of the p atella. The degree of distraction measures 2.8 cm in craniocaudal extent with prominent anterior soft tissue swelling noted. IMPRESSION: Distracted fracture of the left patella. POS: NOAH
--- NOTE | 2018-03-23 20:34 | RAD ---
FOUR VIEWS OF THE LEFT KNEE: 03/23/18 COMPARISON: None. HISTORY: Pain, fall. FINDINGS: The bones appear demineralized. There is a distracted and comminuted fracture at the junction of the middle third and the distal third of the patella with approximately 2 cm of distraction. There is ove rlying soft tissue swelling. IMPRESSION: Distracted comminuted left patellar fracture. POS: [facility]
[2018-03-23] MEDS ORDERED: Morphine 4 MG/ML VIAL ONE (22:25)
== END 2018-03-23 22:48 ==
LOC: ERS 18:17
DX: S82.042A Displaced comminuted fracture of left patella, initial encounter for closed fracture (principal); I12.0 Hypertensive chronic kidney disease with stage 5 chronic kidney disease or end stage renal disease; E11.22 Type 2 diabetes mellitus with diabetic chronic kidney disease; N18.6 End stage renal disease; F41.9 Anxiety disorder, unspecified; F31.9 Bipolar disorder, unspecified; Z79.899 Other long term (current) drug therapy; Z79.891 Long term (current) use of opiate analgesic; Z79.4 Long term (current) use of insulin; W19.XXXA Unspecified fall, initial encounter
CPT/HCPCS: 96372; J2270

== ENCOUNTER 2018-03-28 09:41 | Day surgery (SDC) | payer MEDICARE, MEDICAID ==
[2018-03-28 11:23] LABS: #Eosinphils 0.3 thou/uL (0.0-0.7); #Monocytes 1.2 thou/uL (0.11-0.59); #Neutrophils 7.8 thou/uL (1.40-6.50); %Basophils 0.4 % (0.0-1.0); %Lymphocytes 17.4 % (21.0-51.0); %Monocytes 10.7 % (0.0-10.0); %Neutrophils 68.6 % (42.0-75.0); Hemoglobin 8.6 g/dL (12.0-16.0); Mean Corpuscular HGB CONC 33.4 g/dL (32.0-36.0); Mean Corpuscular Hemoglobin 31.7 pg (27.0-31.0); Mean Corpuscular Volume 94.9 fL (78.0-98.0); Mean Platelet Volume 7.1 fL (7.4-10.4); Platelet Count 253 thou/uL (130-400); RBC Distribution Width 14.2 % (11.5-14.5); Red Blood Cell (RBC) Count 2.72 mill/uL (4.20-5.40); White Blood Cell (WBC) Count 11.3 thou/uL (4.8-10.8)
[2018-03-28 11:40] LABS: Anion Gap 21 mmol/L (10-20); BUN (Urea Nitrogen) 63 mg/dL (9.8-20.1); Calc. Creatinine Clearance 0 mL/min (70-130); Carbon Dioxide 26 mmol/L (23-31); Chloride 98 mmol/L (98-107); Estimated GFR-MDRD 3; Glucose 145 mg/dL (80-115); Magnesium 2.4 mg/dL (1.6-2.6); Phosphorus 7.9 mg/dL (2.3-4.7); Potassium 3.8 mmol/L (3.5-5.1); Sodium 141 mmol/L (136-145)
[2018-03-28] MEDS ORDERED: Clindamycin/D5W 600 mg/50 ml Premix Bag ONE (11:45)
[2018-03-28] MEDS ORDERED: Bupivacaine PF 0.5% 30 ML VIAL ONE (12:37)
[2018-03-28] MEDS ORDERED: Fentanyl 100 MCG/2 ML VIAL ONE ×4 (12:53→17:58)
[2018-03-28] MEDS ORDERED: Lidocaine 1% PF 5 ML VIAL ONE (13:53)
[2018-03-28] MEDS ORDERED: Ondansetron PF 4 MG/2 ML Vial ONE (13:53)
[2018-03-28] MEDS ORDERED: PROPOFOL 200 MG/20 ML VIAL ONE (13:53)
[2018-03-28] MEDS ORDERED: ePHEDrine/0.9% NaCl/PF SYRINGE 50 mg/10 ml ONE (13:53)
[2018-03-28] MEDS ORDERED: Promethazine HCl 25 MG/ML VIAL SLOW IVP PRN (13:59)
[2018-03-28] MEDS ORDERED: Promethazine HCl 25 MG/ML VIAL IM PRN (13:59)
[2018-03-28] MEDS ORDERED: Ondansetron HCl/PF 4 MG/2 ML Vial IVP PRN (13:59)
[2018-03-28] MEDS ORDERED: traMADol HCl 50 MG TAB PO PRN (14:48)
[2018-03-28] MEDS ORDERED: HYDROcodone/Acetaminophen 5/325 mg Tablet PO PRN (14:48)
[2018-03-28] MEDS ORDERED: Acetaminophen 325 MG TAB PO PRN (14:48)
[2018-03-28] MEDS ORDERED: Fentanyl 100 MCG/2 ML VIAL SLOW IVP PRN (14:48)
[2018-03-28] MEDS ORDERED: Ondansetron PF 4 MG/2 ML Vial IV PRN (14:48)
[2018-03-28] MEDS ORDERED: [UNRECOGNIZED DRUG - REMARK] FS PRN (15:00)
[2018-03-28] MEDS ORDERED: Clindamycin/D5W 900 MG in Premix Bag 1 BAG IVPB SCH (15:00)
[2018-03-28] MEDS ORDERED: TETANUS AND DIPHTHERIA TOX/PF 0.5 ML DISP.SYRIN IM SCH (15:00)
--- NOTE | 2018-03-28 15:36 | RAD ---
TWO VIEWS LEFT KNEE: INDICATION: ORIF left knee. COMPARISON: Left knee radiograph dated 03/23/2018. FINDINGS: Submitted image demonstrated lateral projection of the left knee. Again seen is a comminuted inferio r pole left patellar fracture. Total fluoroscopic time was 3.9 seconds. Total exposure was 0.22 mGy . IMPRESSION: Intraoperative fluorosocpic view of the left knee. Comminuted inferior pole patellar fracture in imp roved near anatomic alignment. POS: NOAH
[2018-03-28] MEDS ORDERED: HYDROcodone/Acetaminophen 5/325 mg Tablet ONE (19:26)
--- NOTE | 2018-03-28 21:22 | OP ---
DATE OF PROCEDURE: 03/28/2018 PROCEDURE PERFORMED: Inferior pole of patella excision with advancement of patellar tendon for patella fracture. PREOPERATIVE DIAGNOSIS: Left transverse patella fracture. POSTOPERATIVE DIAGNOSIS: Left transverse patella fracture. COMPLICATIONS: None. ESTIMATED BLOOD LOSS: Minimal. ANESTHESIA: General plus local. IMPLANTS: None. INDICATIONS: Ms. Forrest is a 62-year-old female, who fell. She fractured her patella. She had a disrupted extensor mechanism. She has been unable to ambulate. She was indicated for repair of the patella tendon structures with advancement of the patellar tendon and partial excision of the patellar fragments. Risks have been reviewed in detail. She has elected to proceed with the operation. She is at elevated risk of complications given that she is a dialysis patient. DESCRIPTION OF PROCEDURE: Ms. Forrest was identified in the preop holding area. Her correct extremity was marked. She was carried to the operating room. She was positioned supine. General anesthesia was induced. A multidisciplinary time-out was performed. The left lower extremity was prepped and draped in sterile fashion. We began the procedure with longitudinal incision over the knee. We dissected down through the subcutaneous tissues to the fascia. The fascia was exposed as well as the retinaculum. There was clear disruption of the retinaculum and fracture of the patella. We irrigated and evacuated hematoma from the knee joint. We then debrided gently the bony edges exposing fresh bone. At this point, we passed 2 Ethibond sutures, #5 through the patella in Krackow fashion leaving 4 limbs. Next, we placed 3 drill holes through the patella and passed our 4 sutures up through these drill holes. The patellar tendon was reduced as well as the bony fragments of the inferior pole to the main patella fragment. At this point, we tied down the sutures and secured repair at 30 degrees of flexion. Finally, we repaired the retinacular tissues medially and laterally with a #5 Ethibond suture and oversewed this with an 0 Vicryl suture. Finally, we closed with 0 Vicryl, 2-0 Vicryl, and art as well as nylon for the skin. A sterile dressing was applied. Local anesthetic was placed. The patient was taken to the recovery room in good condition without complication. Job ID: [id number]
== END 2018-03-28 20:28 | disposition home or self-care (01) ==
LOC: SDC 09:41
PROVIDERS: ATTEND Orthopaedic Surgery
PROC: 0QSF04Z Reposition Left Patella with Internal Fixation Device, Open Approach (ICD-10-PCS; principal; 2018-03-28)
DX: S82.032A Displaced transverse fracture of left patella, initial encounter for closed fracture (principal); Z88.0 Allergy status to penicillin; W19.XXXA Unspecified fall, initial encounter
CPT/HCPCS: 76000; 80048; 83735; 84100; 85025; J2001; J2405; J2704; J3010; J3490; S0020

== ENCOUNTER 2018-04-17 13:24 | Emergency (ER) | payer MEDICARE, OTHER ==
--- NOTE | 2018-04-17 15:37 | RAD ---
PORTABLE AP CHEST X-RAY: 04/17/2018 HISTORY: Choking episode after eating. COMPARISON: 10/06/2017 FINDINGS: The cardiac silhouette is magnified by projection but is stable in size. The pulmonary vasculature i s within normal limits. The lungs are clear. No consolidation or pleural fluid is seen. There has been no interval change from the prior exam. IMPRESSION: 1. No acute cardiopulmonary process. 2. Mild cardiomegaly. POS: NOAH
== END 2018-04-17 16:05 | disposition home or self-care (01) ==
LOC: ERS 13:24
DX: R09.89 Other specified symptoms and signs involving the circulatory and respiratory systems (principal); E11.9 Type 2 diabetes mellitus without complications; E78.5 Hyperlipidemia, unspecified; I12.0 Hypertensive chronic kidney disease with stage 5 chronic kidney disease or end stage renal disease; N18.6 End stage renal disease; Z99.2 Dependence on renal dialysis; F41.9 Anxiety disorder, unspecified; F31.9 Bipolar disorder, unspecified; Z79.899 Other long term (current) drug therapy; Z79.4 Long term (current) use of insulin
CPT/HCPCS: 71045

== ENCOUNTER 2018-06-22 11:49 | Emergency (ER) | payer MEDICARE, MEDICAID ==
--- NOTE | 2018-06-22 13:07 | RAD ---
RIGHT FEMUR SERIES TWO VIEWS: INDICATIONS: Fall with right lower extremity pain. FINDINGS: There is degenerative arthropathy incidentally noted. No fracture-dislocation of the right femur. V ascular calcification is present. IMPRESSION: No acute osseous abnormality of the right femur. POS: C
--- NOTE | 2018-06-22 13:24 | CT ---
EXAM: CT Pelvis WO Con PROVIDED CLINICAL HISTORY: Lower back pain post fall. COMPARISON: 05/22/2015 FINDINGS: There is a mildly comminuted burst type fracture involving the L4 vertebral body. No additional fracture is seen involving the pelvis or bilateral hips. Vascular calcifications are seen in the abdominal aorta and involving the iliac and femoral arteries. Urinary bladder and uterus demonstrate grossly normal nonenhanced CT appearance for patient's age. There is a small amount of hemorrhage adjacent to the visualized right psoas muscle which is at the l evel of the burst type fracture of the L4 vertebral body. This also mild stranding seen adjacent to the L4 vertebral body. IMPRESSION: 1. Burst type fracture L5 vertebral body with adjacent small amount of paravertebral hemorrhage. This fracture is better delineated and described on CT lumbar spine also obtained on this date. 2. No no additional fracture or dislocation is seen
--- NOTE | 2018-06-22 13:43 | CT ---
CT LUMBAR SPINE WITHOUT CONTRAST: INDICATIONS: Back pain. Fall. FINDINGS: Comminuted L4 vertebral body fracture with vertical and horizontal components present, and results in moderate central height loss, as well as mild retropulsion of bone at the posterior-superior aspect of the L4 vertebral body, producing moderate osseous compromise of the vertebral canal. Fracture ext ension does involve the anterior aspect of the right facet joint, traversing the lateral confines of the right pedicle. There is localized paraspinous hematoma related to the L4 fracture. IMPRESSION: Comminuted L4 vertebral body fracture, resulting in moderate central height loss, as well as mild pos terior-superior bone retropulsion into the vertebral canal, with associated moderate osseous compromi se. There is extension of fracture into the anterior right facet, breaching the lateral confines of the right pedicle of L4. Recommend neurosurgical consultation for further assessment. POS: [facility]
[2018-06-22] MEDS ORDERED: traMADol HCl 50 MG TAB ONE (14:41)
== END 2018-06-22 17:21 ==
LOC: ERS 11:49
DX: S32.051A Stable burst fracture of fifth lumbar vertebra, initial encounter for closed fracture (principal); E11.9 Type 2 diabetes mellitus without complications; E78.5 Hyperlipidemia, unspecified; I12.0 Hypertensive chronic kidney disease with stage 5 chronic kidney disease or end stage renal disease; N18.6 End stage renal disease; F31.9 Bipolar disorder, unspecified; F41.9 Anxiety disorder, unspecified; W18.30XA Fall on same level, unspecified, initial encounter
CPT/HCPCS: 72131; 72192

== ENCOUNTER 2018-06-27 16:22 | Emergency (ER) | payer MEDICARE, MEDICAID ==
[2018-06-27 17:32] LABS: #Eosinphils 0.3 thou/uL (0.0-0.7); #Lymphocytes 1.3 thou/uL (1.20-3.40); #Neutrophils 4.5 thou/uL (1.40-6.50); %Basophils 0.7 % (0.0-1.0); %Eosinophils 3.8 % (0.0-10.0); %Lymphocytes 18.6 % (21.0-51.0); %Monocytes 13.7 % (0.0-10.0); %Neutrophils 63.2 % (42.0-75.0); Mean Corpuscular Hemoglobin 30.3 pg (27.0-31.0); Mean Corpuscular Volume 91.7 fL (78.0-98.0); Mean Platelet Volume 7.3 fL (7.4-10.4); Platelet Count 163 thou/uL (130-400); RBC Distribution Width 14.1 % (11.5-14.5); White Blood Cell (WBC) Count 7.2 thou/uL (4.8-10.8)
[2018-06-27 17:57] LABS: Anion Gap 12 mmol/L (10-20); BUN (Urea Nitrogen) 24 mg/dL (9.8-20.1); Calc. Creatinine Clearance 0 mL/min (70-130); Calcium 9.1 mg/dL (7.8-10.44); Carbon Dioxide 31 mmol/L (23-31); Chloride 95 mmol/L (98-107); Estimated GFR-MDRD 8; Glucose 221 mg/dL (80-115); Sodium 135 mmol/L (136-145)
[2018-06-27 18:13] LABS: CKMB 0.8 ng/mL (0-6.6)
[2018-06-27] MEDS ORDERED: HYDROcodone/Acetaminophen 5/325 mg Tablet ONE (19:08)
--- NOTE | 2018-06-27 20:37 | CT ---
LUMBAR SPINE CT SCAN WITHOUT IV CONTRAST: History: Low back pain following a prior injury. Comparison: 06-22-18 FINDINGS: Again noted is a comminuted burst type fracture of the L4 vertebral body with central vertical height loss which is very slightly more prominent than on the prior study. No change in the previously note d retropulsion. There is a stable focal left paracentral disc protrusion at L4-5 with some lateral re cess stenosis. IMPRESSION: Comminuted burst type fracture of L4 vertebral body with stable retropulsion. The central vertical he ight loss is slightly more prominent than on prior study of five days ago. No other significant franklin e. POS: [facility]
== END 2018-06-27 21:24 ==
LOC: ERS 16:22
DX: I12.0 Hypertensive chronic kidney disease with stage 5 chronic kidney disease or end stage renal disease (principal); N18.6 End stage renal disease; I25.2 Old myocardial infarction; E11.22 Type 2 diabetes mellitus with diabetic chronic kidney disease; F31.9 Bipolar disorder, unspecified; F41.9 Anxiety disorder, unspecified; Z86.73 Personal history of transient ischemic attack (TIA), and cerebral infarction without residual deficits; Z79.891 Long term (current) use of opiate analgesic; W01.0XXA Fall on same level from slipping, tripping and stumbling without subsequent striking against object, initial encounter
CPT/HCPCS: 36415; 72131; 80048; 82553; 84484; 85025; 93005

== ENCOUNTER 2018-08-10 10:07 | Outpatient (CLI) | payer MEDICARE, MEDICAID ==
--- NOTE | 2018-08-10 10:35 | RAD ---
2 views of the lumbar spine: 08/10/2018 COMPARISON: 07/05/2018 HISTORY: Reevaluate burst fracture of the L4 vertebral body FINDINGS: The bones are demineralized. The patient is imaged in the supine position in a brace. There is a burst fracture of the L4 vertebral body. Detailed assessment is somewhat limited secondary to technique. There is probable mild retropulsion along the superior aspect of the L4 vertebral body fra cture. Centrally the vertebral body height measures approximately 1.7 cm, which appears decreased when compared to the prior study at which time vertebral body height within the 2.6 cm range. IMPRESSION: Findings suggesting interval worsening in vertebral body height loss associated with the L4 burst fracture. However, evaluation is limited technically. A repeat CT examination may be beneficial.
== END 2018-08-10 10:08 | disposition home or self-care (01) ==
LOC: TBSIIMAG 10:07
PROVIDERS: ATTEND Surgery
DX: S22.008A Other fracture of unspecified thoracic vertebra, initial encounter for closed fracture (principal); M54.5 Low back pain
CPT/HCPCS: 72100

== ENCOUNTER 2018-09-25 10:24 | Inpatient (IN) | payer MEDICARE, MEDICAID ==
[2018-09-25 11:09] LABS: #Basophils 0.1 thou/uL (0.0-0.2); #Eosinphils 0.1 thou/uL (0.0-0.7); #Monocytes 0.8 thou/uL (0.11-0.59); #Neutrophils 3.5 thou/uL (1.40-6.50); %Basophils 1.1 % (0.0-1.0); %Eosinophils 2.1 % (0.0-10.0); %Lymphocytes 30.7 % (21.0-51.0); %Monocytes 11.7 % (0.0-10.0); %Neutrophils 54.4 % (42.0-75.0); Hemoglobin 12.7 g/dL (12.0-16.0); Mean Corpuscular HGB CONC 33.6 g/dL (32.0-36.0); Mean Corpuscular Volume 98.5 fL (78.0-98.0); Mean Platelet Volume 7.6 fL (7.4-10.4); Platelet Count 148 thou/uL (130-400); RBC Distribution Width 13.7 % (11.5-14.5); Red Blood Cell (RBC) Count 3.84 mill/uL (4.20-5.40); White Blood Cell (WBC) Count 6.4 thou/uL (4.8-10.8)
--- NOTE | 2018-09-25 11:26 | CT ---
CT Brain WO Con: 09/25/2018 10:49 AM CLINICAL HISTORY: Altered mental status. IMAGING TECHNIQUE: Multiple CT images were obtained of the brain without IV contrast. COMPARISON: September 24, 2017 FINDINGS: Infarct: No acute infarct evident. Hemorrhage: None.. Hydrocephalus: None.. Basal cisterns: Normal.. Cerebral parenchyma: There is moderate chronic small vessel white matter ischemic change.. Midline shift: None.. Cerebellum: Normal. Brainstem: Normal. OTHER: Calvarium: Intact.. Visualized Paranasal sinuses: There is moderate mucosal thickening within the left maxillary sinus wi th mild thickening seen within the ethmoid air cells and right maxillary sinus.. Extracranial soft tissues:Normal. IMPRESSION: No acute intracranial abnormality. Mild paranasal sinus disease
[2018-09-25 11:30] LABS: ALT (SGPT) 13 U/L (8-55); AST (SGOT) 11 U/L (5-34); Albumin 3.1 g/dL (3.4-4.8); Alkaline Phosphatase 69 U/L (40-150); Anion Gap 13 mmol/L (10-20); BUN (Urea Nitrogen) 26 mg/dL (9.8-20.1); Bilirubin, Total 1.2 mg/dL (0.2-1.2); Calc. Creatinine Clearance 0 mL/min (70-130); Calcium 11.3 mg/dL (7.8-10.44); Carbon Dioxide 27 mmol/L (23-31); Chloride 100 mmol/L (98-107); Estimated GFR-MDRD 6; Globulin 2.6 g/dL (2.4-3.5); Glucose 189 mg/dL (80-115); Lipase 24 U/L (8-78); Potassium 3.3 mmol/L (3.5-5.1); Protein, Total 5.7 g/dL (6.0-8.3); Sodium 137 mmol/L (136-145)
[2018-09-25 11:51] LABS: CKMB 0.9 ng/mL (0-6.6)
--- NOTE | 2018-09-25 12:23 | RAD ---
PORTABLE CHEST 1 VIEW: Date: 09/25/18 Time: 1116 hours HISTORY: Altered mental status. FINDINGS/IMPRESSION: Comparison made with exam of 04/17/18. The heart size is prominent but stable. The aorta is tortuous. The lungs are expanded without lobar c onsolidation, pneumothoraces, jose pulmonary edema, or pleural effusions. POS: H
[2018-09-25] MEDS ORDERED: Ondansetron PF 4 MG/2 ML Vial IVP PRN (16:02)
[2018-09-25] MEDS ORDERED: Ondansetron ODT 4 MG TAB SL PRN (16:02)
[2018-09-25] MEDS ORDERED: Dextrose 5% in Water 1,000 ML IV PRN (17:02)
[2018-09-25] MEDS ORDERED: Dextrose 50% Abboject 50 ML SYRINGE IVP PRN (17:02)
[2018-09-25] MEDS ORDERED: Insulin Regular 300 UNITS/3 ML VIAL SC PRN (17:02)
[2018-09-25] MEDS ORDERED: Acetaminophen 325 MG TAB PO PRN (17:03)
[2018-09-25] MEDS ORDERED: Diabetic Tussin 200 MG/10 ML UDCUP PO PRN (17:08)
[2018-09-25] MEDS ORDERED: Mag-Al Plus 1200 MG/1200 MG/120 MG/30 ML UDCUP PO PRN (17:14)
[2018-09-25 18:17] VITALS: BMI 25.4
[2018-09-25] MEDS: Divalproex Sodium 125 mg Sprinkle Capsule PO SCH (20:01)
[2018-09-25] MEDS: levETIRAcetam 500 MG TAB PO SCH (20:01)
[2018-09-25] MEDS: Artificial Tear Sol 15 ML BOT EA EYE SCH (20:01)
--- NOTE | 2018-09-26 00:12 | HP ---
CHIEF COMPLAINT: Altered mental status. HISTORY OF PRESENT ILLNESS: Ms. Forrest is a 63-year-old female with past medical history of end-stage renal disease, on hemodialysis, hypertension, diabetes, history of hepatic encephalopathy in the past, was noted to have a change in mental status at the half-way. The patient usually is communicative and oriented to place and person, but she was completely confused and a bit lethargic as well. She did not have any nausea, vomiting, chest pain, or complaint of pain all over the body. The patient was sent to the hospital. In the ER, the patient was evaluated and found to have elevated ammonia level, so the patient is diagnosed with hepatic encephalopathy, is admitted for further management. She received a dose of lactulose in the ER. PAST MEDICAL HISTORY: 1. End-stage renal disease, on hemodialysis. 2. Hyperammonemia. 3. Hypertension. 4. Diabetes mellitus. 5. Recent seizure. 6. Dementia. 7. History of atrial fibrillation. PAST SURGICAL HISTORY: Status post mastectomy and status post radiation. CURRENT MEDICATIONS: The patient is on; 1. Tylenol p.r.n. 2. Coreg 6.25 daily. 3. Sensipar 30 mg daily. 4. Diltiazem 90 mg daily. 5. Depakote 125 t.i.d. 6. Procrit weekly. 7. Folic acid daily, 1 mg. 8. Lactulose 30 g b.i.d. 9. Keppra 500 b.i.d. 10. Megace 400 mg daily. 11. Namenda 5 mg b.i.d. 12. Seroquel 25 at bedtime. 13. Renvela 800 mg t.i.d. ALLERGIES: NKDA. FAMILY HISTORY: Nothing contributory. SOCIAL HISTORY: The patient lives in half-way. No history of smoking. No history of alcohol. REVIEW OF SYSTEMS: CARDIOVASCULAR: No chest pain. No shortness of breath. RESPIRATORY: No fever or cough. GASTROINTESTINAL: No nausea or vomiting. No abdominal pain. CENTRAL NERVOUS SYSTEM: No headache. No dizziness. PHYSICAL EXAMINATION: GENERAL: The patient is alert, awake, oriented x3. VITAL SIGNS: Temperature 98, pulse 69, respirations 20, blood pressure 130/60. HEENT: Head is normocephalic and atraumatic. Pupils are equal and reactive. Nasopharynx is pink and moist. NECK: Supple. No JVD. LUNGS: Bilateral air entry with no rales and no rhonchi. HEART: S1 and S2. Regular. ABDOMEN: Soft. No distention. No tenderness. Normal bowel sounds. RECTAL: Deferred. CENTRAL NERVOUS SYSTEM: The patient is alert, awake, oriented x2. Motor system power 4/5 in all extremities. Deep tendon reflex 2+ bilaterally. Plantars downgoing. Sensory intact. LABORATORY DATA: CBC shows WBC 6.4, hemoglobin 12, hematocrit 37, platelets 148. Metabolic panel; sodium 137, potassium 3.3, chloride 100, CO2 27, blood urea nitrogen 26, creatinine 6, glucose 189. CK-MB 0.9, troponin 0.211, ammonia level was 114. Depakote level 12.5. EKG shows normal sinus rhythm, no acute ST-T wave changes seen. CT scan of the brain, no acute intracranial abnormality. Chest x-ray negative. ASSESSMENT: 1. Acute encephalopathy secondary to hyperammonemia. 2. End-stage renal disease, on hemodialysis. 3. Hypertension. 4. History of seizure disorder. 5. Chronic anemia. 6. History of atrial fibrillation, chronic. 7. Dementia. 8. Diabetes mellitus. 9. Hyperlipidemia. PLAN: 1. Vital signs q.4 hours. 2. Activity as tolerated. 3. Allergies, NKDA. 4. Hep-Lock. 5. Lactulose 30 g b.i.d. 6. Diet, renal ADA. 7. Nephrology consult for dialysis. 8. Accu-Chek before meals and sliding scale mild with regular insulin. 9. Continue her half-way medications. 10. We will repeat ammonia level. Job ID: [id number]
[2018-09-26 00:37] LABS: Troponin I 0.218 ng/mL (< 0.028)
[2018-09-26] MEDS: Sevelamer Carbonate 800 MG TAB PO SCH ×3 (08:15→19:24)
[2018-09-26] MEDS ORDERED: Prevnar 13-Val Conj/PF 0.5 ML SYRINGE IM ONE (09:00)
[2018-09-26] MEDS: Megestrol Acetate 800 MG/20 ML UDCUP PO SCH (11:11)
[2018-09-26] MEDS: Artificial Tear Sol 15 ML BOT EA EYE SCH ×2 (11:11→20:30)
[2018-09-26] MEDS: levETIRAcetam 500 MG TAB PO SCH ×2 (11:16→20:31)
[2018-09-26] MEDS: Escitalopram Oxalate 20 mg Tablet PO SCH (11:16)
[2018-09-26] MEDS: Carvedilol 6.25 MG TAB PO SCH (11:16)
[2018-09-26] MEDS: Divalproex Sodium 125 mg Sprinkle Capsule PO SCH ×3 (11:20→20:31)
[2018-09-26] MEDS: Diltiazem HCl SR 90 mg Capsule PO SCH (11:20)
[2018-09-26] MEDS: Cinacalcet HCl 30 MG TAB PO SCH (11:20)
[2018-09-26] MEDS: Folic Acid/Vit B Comp W-C PO SCH (11:21)
--- NOTE | 2018-09-26 11:59 | CON ---
DATE OF CONSULTATION: 09/25/2018 CONSULTING PHYSICIAN: Dr. Chadwick. REASON FOR CONSULTATION: End-stage renal disease evaluation and care. REASON FOR ADMISSION: Altered mentation. HISTORY OF PRESENT ILLNESS: This is a 63-year-old female with history of end-stage renal disease, diabetes, hypertension, and Wernicke encephalopathy, came to the hospital with altered mentation. The patient was sent from alf. She gets dialysis on Wednesday, Wednesday, Wednesday with last dialysis was yesterday. No fever or chills. No nausea or vomiting. The patient is actually feeling better, more awake and Nephrology was consulted for maintenance hemodialysis. The patient is due for dialysis tomorrow. PAST MEDICAL HISTORY: Positive for end-stage renal disease, type 2 diabetes, hypertension, Wernicke encephalopathy. PAST SURGICAL HISTORY: and dialysis access placement in left upper arm, and nephrectomy. HOME MEDICATIONS: 1. Carvedilol. 2. Tylenol. 3. . 4. Keppra. 5. Lactulose. 6. Lexapro. 7. Namenda. 8. Renvela. 9. Maalox. 10. Sensipar. 11. Seroquel. ALLERGIES: PENICILLIN. SOCIAL HISTORY: No smoking, alcohol, or illicit drugs. FAMILY HISTORY: No history of kidney disease. REVIEW OF SYSTEMS: CONSTITUTIONAL: Negative for weight loss or gain, ability to conduct usual activities. SKIN: Negative for rash, itching. EYES: Negative for double vision, pain. ENT/MOUTH: Negative for nose bleeding, neck stiffness, pain, tenderness. CARDIOVASCULAR: Negative for palpitations, dyspnea on exertion, orthopnea. RESPIRATORY: Negative for shortness of breath, wheezing, cough, hemoptysis, fever or night sweats. GASTROINTESTINAL: Negative for poor appetite, abdominal pain, heartburn, nausea, vomiting, constipation, or diarrhea. GENITOURINARY: Negative for urgency, frequency, dysuria, nocturia. MUSCULOSKELETAL: Negative for pain, swelling. NEUROLOGIC/PSYCHIATRIC: Negative for anxiety, depression. ALLERGY/IMMUNOLOGIC: Negative for skin rash, bleeding tendency. PHYSICAL EXAMINATION: GENERAL: Reveals a well-built female, in no apparent distress. VITAL SIGNS: . HEENT: Atraumatic, normocephalic. Oral mucosa moist. NECK: Supple. CV: S1 and S2, rate and rhythm regular. RESPIRATORY: Clear to auscultation. MUSCULOSKELETAL: . DERMATOLOGIC: No skin rash. NEUROLOGIC: Alert, awake. PSYCHIATRIC: Mood and affect normal. LABORATORY DATA: Hemoglobin 12.7, potassium 3.3, BUN is 36, creatinine is 6.7. ASSESSMENT AND PLAN: 1. End-stage renal disease. Continue on hemodialysis as tolerated. 2. Edema, controlled. 3. Hypertension, stable. 4. Hypokalemia, monitor. 5. Hypercalcemia. Monitor calcium after dialysis. 6. Hypoalbuminemia. Monitor labs closely. Continue dialysis as tolerated. We will follow. Thank you for the consult. Job ID: [id number]
--- NOTE | 2018-09-26 12:14 | PRG ---
DATE OF SERVICE: 09/26/2018 SUBJECTIVE: This is a 63-year-old female being seen for end-stage renal disease. The patient denies nausea, vomiting, or chest pain. OBJECTIVE: See above. CONSTITUTIONAL: The patient is awake and alert. VITAL SIGNS: Pulse 75, breathing 16, blood pressure 139/66. GENERAL APPEARANCE AND MENTAL STATUS: Fair. HEAD/NECK: Normocephalic. Atraumatic. EYES: EOMI. No deformity. EARS: Clear. No ulcers. NOSE: Intact. No lesions. MOUTH: Clear. No discharge. THROAT: Clear. No exudate. LUNGS: Clear. No crackles. CARDIAC: S1, S2. No rub. ABDOMEN: Benign. Bowel sounds positive. GENITALIA/RECTUM: Bansal absent. BACK/EXTREMITIES: Edema 0+. NEUROLOGICAL: Alert and motor intact. SKIN: LYMPHATICS: LABORATORY DATA: Reviewed. ASSESSMENT: 1. Stage 6 chronic kidney disease. Plan dialysis today. 2. Hypertension, stable. 3. Anemia, stable. 4. Medication based on GFR appropriate. Job ID: [id number]
[2018-09-27] MEDS: Folic Acid/Vit B Comp W-C PO SCH (08:19)
[2018-09-27] MEDS: Sevelamer Carbonate 800 MG TAB PO SCH ×3 (08:19→17:08)
[2018-09-27] MEDS: Diltiazem HCl SR 90 mg Capsule PO SCH (08:19)
[2018-09-27] MEDS: Divalproex Sodium 125 mg Sprinkle Capsule PO SCH ×3 (08:20→20:27)
[2018-09-27] MEDS: levETIRAcetam 500 MG TAB PO SCH ×2 (08:20→20:27)
[2018-09-27] MEDS: Escitalopram Oxalate 20 mg Tablet PO SCH (08:20)
[2018-09-27] MEDS: Cinacalcet HCl 30 MG TAB PO SCH (08:20)
[2018-09-27] MEDS: Megestrol Acetate 800 MG/20 ML UDCUP PO SCH (08:21)
[2018-09-27] MEDS: Carvedilol 6.25 MG TAB PO SCH (08:22)
[2018-09-27] MEDS: Artificial Tear Sol 15 ML BOT EA EYE SCH ×2 (08:25→20:26)
--- NOTE | 2018-09-27 11:47 | PRG ---
DATE OF SERVICE: 09/27/2018 SUBJECTIVE: A 63-year-old female is being seen for end-stage renal disease. The patient denied nausea, vomiting, or chest pain. OBJECTIVE: GENERAL: The patient is awake and alert. VITAL SIGNS: Afebrile, pulse 79, breathing 16, blood pressure 130/62. GENERAL APPEARANCE AND MENTAL STATUS: Fair. HEAD/NECK: Normocephalic. Atraumatic. EYES: EOMI. No deformity. EARS: Clear. No ulcers. NOSE: Intact. No lesions. MOUTH: Clear. No discharge. THROAT: Clear. No exudate. LUNGS: Clear. No crackles. CARDIAC: S1, S2. No rub. ABDOMEN: Benign. Bowel sounds positive. GENITALIA/RECTUM: Bansal absent. BACK/EXTREMITIES: Edema 0+. NEUROLOGICAL: Alert and motor intact. LABORATORY DATA: Reviewed. ASSESSMENT: 1. Stage 6 chronic kidney disease, continue hemodialysis. 2. Hypertension, stable. 3. Anemia, stable. 4. Medication based on GFR appropriate. Job ID: [id number]
--- NOTE | 2018-09-28 09:41 | PRG ---
DATE OF SERVICE: 09/28/2018 SUBJECTIVE: A 63-year-old female being seen for end-stage renal disease. The patient denied any nausea, vomiting, or chest pain. OBJECTIVE: CONSTITUTIONAL: On examination, the patient is awake and alert. VITAL SIGNS: Afebrile, pulse 75, breathing 16, and blood pressure 114/57. GENERAL APPEARANCE AND MENTAL STATUS: Fair. HEAD/NECK: Normocephalic. Atraumatic. EYES: EOMI. No deformity. EARS: Clear. No ulcers. NOSE: Intact. No lesions. MOUTH: Clear. No discharge. THROAT: Clear. No exudate. LUNGS: Clear. No crackles. CARDIAC: S1, S2. No rub. ABDOMEN: Benign. Bowel sounds positive. GENITALIA/RECTUM: Bansal absent. BACK/EXTREMITIES: Edema 0+. NEUROLOGICAL: Alert and motor intact. SKIN: LYMPHATICS: LABORATORY DATA: Reviewed. ASSESSMENT AND PLAN: 1. Stage 3 chronic kidney disease. Continue dialysis. 2. Hypertension, stable. 3. Anemia, stable. 4. Medications based on glomerular filtration rate appropriate. Job ID: [id number]
[2018-09-28] MEDS: Sevelamer Carbonate 800 MG TAB PO SCH ×2 (11:39→11:50)
[2018-09-28] MEDS: Artificial Tear Sol 15 ML BOT EA EYE SCH (11:43)
[2018-09-28] MEDS: Megestrol Acetate 800 MG/20 ML UDCUP PO SCH (11:44)
[2018-09-28] MEDS: Divalproex Sodium 125 mg Sprinkle Capsule PO SCH ×2 (11:45→15:27)
[2018-09-28] MEDS: Cinacalcet HCl 30 MG TAB PO SCH (11:45)
[2018-09-28] MEDS: Folic Acid/Vit B Comp W-C PO SCH (11:45)
[2018-09-28] MEDS: levETIRAcetam 500 MG TAB PO SCH (11:45)
[2018-09-28] MEDS: Diltiazem HCl SR 90 mg Capsule PO SCH (11:45)
[2018-09-28] MEDS: Escitalopram Oxalate 20 mg Tablet PO SCH (11:45)
[2018-09-28] MEDS: Carvedilol 6.25 MG TAB PO SCH (11:45)
[2018-09-28 12:06] VITALS: BP 110/64; TEMP 98.2
--- NOTE | 2018-09-29 10:15 | DIS ---
DATE OF ADMISSION: 09/25/2018 DATE OF DISCHARGE: 09/28/2018 ADMITTING DIAGNOSES: 1. Acute encephalopathy secondary to hyperammonemia. 2. End-stage renal disease, on hemodialysis. 3. Hypertension. 4. Seizure disorder. 5. Chronic anemia. 6. Chronic atrial fibrillation. 7. Dementia. 8. Diabetes. 9. Hyperlipidemia. FINAL DIAGNOSES: 1. Acute encephalopathy secondary to hyperammonemia, improved. 2. End-stage renal disease, on hemodialysis. 3. Hypertension. 4. Chronic anemia. 5. Atrial fibrillation, chronic BRIEF SUMMARY OF HOSPITAL COURSE: Ms. Lindsey Forrest is a 63-year-old female, admitted because of change in mental status. The patient was confused and combative, not eating well. The patient went to the hospital for evaluation, found to have markedly elevated ammonia level of 126. The patient was already on lactulose and her lactulose dose was increased. Her ammonia level came down in the next 2 days, her mental status improved, became more alert, awake, and oriented. She started to eat better. She did not have any chest pain or shortness of breath. No nausea or vomiting. Her ammonia level came down to 90. Meanwhile patient continued on hemodialysis. In view of improvement, patient was discharged back to [facility]. At the time of discharge, she was stable. Her vital signs are stable, lungs clear. Heart sounds regular. Abdomen soft, nontender, bowel sounds present. DISCHARGE MEDICATIONS: Include: 1. Namenda 5 mg b.i.d. 2. Coreg 6.25 daily. 3. Keppra 500 b.i.d. 4. Seroquel 25 at bedtime. 5. Renvela 800 mg t.i.d. 6. Sensipar 30 mg daily. 7. Folic acid daily. 8. Procrit weekly. 9. Depakote 125 t.i.d. 10. Guaifenesin p.r.n. 11. Megace 400 mg daily. 12. Lexapro 20 mg daily. 13. Tylenol p.r.n. 14. Diltiazem 90 mg daily. 15. Lactulose 60 mg bid. The patient will continue hemodialysis. Job ID: [id number] MTDD
[2018-10-02] MEDS ORDERED: EPOETIN ALFA-EPBX (ESRD) 10,000 UNIT/ML VIAL SC SCH (09:00)
== END 2018-09-28 16:52 | DRG 642 ==
LOC: ERS 10:24 → ONC 13:00
PROVIDERS: ADMIT Internal Medicine; ATTEND Internal Medicine
PROC: 5A1D70Z Performance of Urinary Filtration, Intermittent, Less than 6 Hours Per Day (ICD-10-PCS; principal; 2018-09-28)
DX: E72.20 Disorder of urea cycle metabolism, unspecified (principal); N18.6 End stage renal disease; G93.49 Other encephalopathy; I12.0 Hypertensive chronic kidney disease with stage 5 chronic kidney disease or end stage renal disease; E78.5 Hyperlipidemia, unspecified; F41.9 Anxiety disorder, unspecified; F03.90 Unspecified dementia, unspecified severity, without behavioral disturbance, psychotic disturbance, mood disturbance, and anxiety; G40.909 Epilepsy, unspecified, not intractable, without status epilepticus; I48.2 Chronic atrial fibrillation; F32.9 Major depressive disorder, single episode, unspecified; E87.6 Hypokalemia; E83.51 Hypocalcemia; D63.1 Anemia in chronic kidney disease; E11.22 Type 2 diabetes mellitus with diabetic chronic kidney disease; Z99.2 Dependence on renal dialysis; Z79.4 Long term (current) use of insulin; Z79.01 Long term (current) use of anticoagulants; Z90.10 Acquired absence of unspecified breast and nipple; Z88.0 Allergy status to penicillin
CPT/HCPCS: 36415; 36416; 70450; 71045; 80053; 80164; 82140; 82553; 83690; 84443; 84484; 85025; 90935; 93005; G0257; J1815

== ENCOUNTER 2018-10-17 13:38 | Emergency (ER) | payer MEDICARE, MEDICAID ==
[2018-10-17 14:14] LABS: #Eosinphils 0.2 thou/uL (0.0-0.7); #Lymphocytes 1.9 thou/uL (1.20-3.40); #Neutrophils 5.9 thou/uL (1.40-6.50); %Basophils 0.5 % (0.0-1.0); %Eosinophils 1.7 % (0.0-10.0); %Lymphocytes 20.8 % (21.0-51.0); %Monocytes 11.4 % (0.0-10.0); %Neutrophils 65.7 % (42.0-75.0); Hemoglobin 11.6 g/dL (12.0-16.0); Mean Corpuscular HGB CONC 32.5 g/dL (32.0-36.0); Mean Corpuscular Hemoglobin 30.9 pg (27.0-31.0); Mean Corpuscular Volume 95.3 fL (78.0-98.0); Mean Platelet Volume 7.6 fL (7.4-10.4); Platelet Count 168 thou/uL (130-400); RBC Distribution Width 12.8 % (11.5-14.5); Red Blood Cell (RBC) Count 3.76 mill/uL (4.20-5.40)
[2018-10-17 14:39] LABS: ALT (SGPT) 9 U/L (8-55); AST (SGOT) 11 U/L (5-34); Albumin 2.8 g/dL (3.4-4.8); Alkaline Phosphatase 69 U/L (40-150); Anion Gap 15 mmol/L (10-20); BUN (Urea Nitrogen) 28 mg/dL (9.8-20.1); Bilirubin, Total 0.8 mg/dL (0.2-1.2); Calc. Creatinine Clearance 0 mL/min (70-130); Calcium 11.1 mg/dL (7.8-10.44); Carbon Dioxide 27 mmol/L (23-31); Chloride 99 mmol/L (98-107); Estimated GFR-MDRD 6; Globulin 2.4 g/dL (2.4-3.5); Glucose 142 mg/dL (80-115); Potassium 3.4 mmol/L (3.5-5.1); Protein, Total 5.2 g/dL (6.0-8.3); Sodium 138 mmol/L (136-145)
== END 2018-10-17 16:41 | disposition home or self-care (01) ==
LOC: ERS 13:38
DX: R00.0 Tachycardia, unspecified (principal); E11.22 Type 2 diabetes mellitus with diabetic chronic kidney disease; I12.0 Hypertensive chronic kidney disease with stage 5 chronic kidney disease or end stage renal disease; N18.6 End stage renal disease; I25.2 Old myocardial infarction; F41.9 Anxiety disorder, unspecified; F31.9 Bipolar disorder, unspecified; Z99.2 Dependence on renal dialysis; Z79.899 Other long term (current) drug therapy
CPT/HCPCS: 36415; 80053; 82140; 85025; 93005

== ENCOUNTER 2018-11-21 12:12 | Inpatient (IN) | payer MEDICARE, MEDICAID ==
[2018-11-21 13:18] LABS: #Eosinphils 0.1 thou/uL (0.0-0.7); #Lymphocytes 1.3 thou/uL (1.20-3.40); #Monocytes 0.6 thou/uL (0.11-0.59); #Neutrophils 3.6 thou/uL (1.40-6.50); %Basophils 0.7 % (0.0-1.0); %Eosinophils 2.6 % (0.0-10.0); %Lymphocytes 22.2 % (21.0-51.0); %Monocytes 10.4 % (0.0-10.0); %Neutrophils 64.1 % (42.0-75.0); Hemoglobin 10.5 g/dL (12.0-16.0); Mean Corpuscular Hemoglobin 33.6 pg (27.0-31.0); Mean Corpuscular Volume 98.8 fL (78.0-98.0); Platelet Count 176 thou/uL (130-400); RBC Distribution Width 14.3 % (11.5-14.5); Red Blood Cell (RBC) Count 3.12 mill/uL (4.20-5.40); White Blood Cell (WBC) Count 5.6 thou/uL (4.8-10.8)
[2018-11-21 13:24] LABS: Base Excess-Venous 3.6 mmol/L (-2.0 to 3.0); Bicarbonate (HCO3v) 27.4 mmol/L (22.0-28.0); CO2 Tension (PvCO2) 37.4 mmHg (40.0-50.0); Calcium, Ionized 1.26 mmol/L (See Comments:); Chloride 107 mmol/L (98-107); Hemoglobin - Calc 10.1 g/dL (12.0-16.0); Potassium 3.5 mmol/L (3.5-5.1); Sodium 143 mmol/L (138-145); T. Carbon Dioxide 28.6 mmol/L (22.0-28.0); vO2 Saturation-calc 94.3 % (60.0-85.0)
--- NOTE | 2018-11-21 13:25 | RAD ---
EXAM: Single view of the chest HISTORY: Unresponsiveness with altered mental status COMPARISON: 09/25/2018 FINDINGS: Single view of the chest shows an enlarged but stable cardiomediastinal silhouette. There i s no evidence of consolidation, mass, or pleural effusion. The bones are unremarkable. IMPRESSION: No evidence of acute cardiopulmonary disease
[2018-11-21 13:50] LABS: ALT (SGPT) 13 U/L (8-55); AST (SGOT) 15 U/L (5-34); Alkaline Phosphatase 69 U/L (40-150); Anion Gap 16 mmol/L (10-20); BUN (Urea Nitrogen) 51 mg/dL (9.8-20.1); Calc. Creatinine Clearance 0 mL/min (70-130); Carbon Dioxide 25 mmol/L (23-31); Chloride 102 mmol/L (98-107); Estimated GFR-MDRD 5; Globulin 2.6 g/dL (2.4-3.5); Glucose 323 mg/dL (80-115); Potassium 3.7 mmol/L (3.5-5.1); Protein, Total 5.6 g/dL (6.0-8.3); Sodium 139 mmol/L (136-145)
--- NOTE | 2018-11-21 13:57 | CT ---
EXAM: CT brain without contrast HISTORY: Hyperglycemia and altered mental status. COMPARISON: 09/25/2018 TECHNIQUE: Multiple contiguous axial images were obtained and a CT of the brain without contrast. FINDINGS: There are scattered hypodensities in the subcortical and periventricular white matter consi stent with small vessel ischemic disease. There is no evidence of hydrocephalus, intracranial hemorrhage, or extra-axial fluid collection. The calvarium and overlying soft tissues are unremarkable. Mucosal thickening is seen in the left max illary sinus. The other visualized paranasal sinuses and mastoid air cells are well aerated. IMPRESSION: No evidence of acute intracranial abnormality
[2018-11-21 14:04] LABS: CKMB 1.6 ng/mL (0-6.6)
[2018-11-21 15:16] LABS: Bacteria/HPF None Seen HPF (None Seen); Bilirubin Negative (Negative); Blood, Urine Negative (Negative); Clarity Clear (Clear); Glucose, Urine (Dipstick) >=1000 mg/dL (Negative); Leukocyte Negative Leu/uL (Negative); Nitrite Negative (Negative); Protein, Urine (Dipstick) 70 mg/dL (Neg-Trace); RBC/HPF 0-3 HPF (0-3); Squamous Epithelial 0-3 HPF (0-3); Urobilinogen Normal mg/dL (Less than 2); WBC/HPF 0-3 HPF (0-3)
[2018-11-21 17:36] LABS: Troponin I 0.226 ng/mL (< 0.028)
[2018-11-21 18:20] VITALS: BMI 25.0
[2018-11-21] MEDS ORDERED: Diabetic Tussin 200 MG/10 ML UDCUP PO PRN (19:51)
[2018-11-21] MEDS ORDERED: Dextrose 5% in Water 1,000 ML IV PRN (19:52)
[2018-11-21] MEDS ORDERED: Dextrose 50% Abboject 50 ML SYRINGE IVP PRN (19:52)
[2018-11-21] MEDS ORDERED: Diltiazem HCl SR 90 mg Capsule PO SCH (20:00)
[2018-11-21] MEDS: Carvedilol 6.25 MG TAB PO SCH (21:32)
[2018-11-21] MEDS: Artificial Tear Sol 15 ML BOT EA EYE SCH (21:32)
[2018-11-21] MEDS: Divalproex Sodium 125 mg Sprinkle Capsule PO SCH (21:33)
--- NOTE | 2018-11-22 00:18 | HP ---
CHIEF COMPLAINT: Hyperglycemia, change in mental status. HISTORY OF PRESENT ILLNESS: Ms. Forrest is a 63-year-old female, who was transferred from dialysis unit because she had a change in mental status. The patient was unresponsive and her blood sugar was high according to the dialysis unit staff. The patient did not have dialysis today because of this change in condition. The patient did not complain of any chest pain, nausea, or vomiting. No headache. No dizziness. The patient was transferred to the hospital, where she was found to have atrial fibrillation with rapid ventricular rate. The patient received a dose of Cardizem and being admitted for further evaluation and management. The patient was alert and awake in the ER. The patient recently in the hospital for hyperammonemia levels with altered mental status. PAST MEDICAL HISTORY: 1. End-stage renal disease, on hemodialysis 3 times a week. 2. Hyperammonemia. 3. Hypertension. 4. Diabetes mellitus. 5. Seizure disorder. 6. Dementia. 7. History of atrial fibrillation. PAST SURGICAL HISTORY: Status post mastectomy, status post radiation. CURRENT MEDICATIONS: The patient is on; 1. Keppra 500 b.i.d. 2. Renvela 800 mg t.i.d. 3. Seroquel 25 mg at bedtime. 4. Namenda 5 mg b.i.d. 5. Megace 400 mg daily. 6. Folic acid 1 tablet daily. 7. Lexapro 20 mg daily. 8. Procrit weekly. 9. Depakote 125 t.i.d. 10. Diltiazem 90 mg daily. 11. Sensipar 30 mg daily. 12. Coreg 6.25 b.i.d. 13. Tylenol p.r.n. ALLERGIES: NKDA. FAMILY HISTORY: Nothing contributory. SOCIAL HISTORY: The patient lives in a fpc. No history of smoking. No history of alcohol. REVIEW OF SYSTEMS: CARDIOVASCULAR: No chest pain. No shortness of breath. RESPIRATORY: No fever, cough. GASTROINTESTINAL: No nausea, or vomiting. CENTRAL NERVOUS SYSTEM: No headache. No dizziness. PHYSICAL EXAMINATION: GENERAL: The patient is alert, awake, oriented x2. VITAL SIGNS: Temperature 98, pulse 120, respiratory rate 20, blood pressure 120 /60. HEENT: Head is normocephalic, atraumatic. Pupils are equal and reactive. Nasopharynx is pale and dry. Hard and soft palate, no lesions. SKIN: Turgor decreased. NECK: Supple. No JVD. LUNGS: Bilateral air entry with no rales noted. HEART: S1, S2. Irregularly irregular. ABDOMEN: Soft. No distention. No tenderness. Normal bowel sounds. RECTAL: Deferred. CENTRAL NERVOUS SYSTEM: No focal deficit. LABORATORY DATA: CBC shows WBC 5.7, hemoglobin 10, hematocrit 30, and platelets 176. Metabolic panel; sodium 139, potassium 3.7, chloride 102, CO2 25, BUN 51, creatinine 8.5, glucose 323. Troponin I 0.218. Urinalysis negative. ABG showed pH 7.47, pCO2 37, PO2 67, saturation 94%. Chest x-ray negative. EKG shows atrial fibrillation with heart rate around 120. ASSESSMENT: 1. Atrial fibrillation, chronic with rapid ventricular rate. 2. End-stage renal disease, on hemodialysis. 3. Hypertension. 4. Dementia. 5. Seizure disorder. 6. Hyperammonemia. PLAN: 1. Vital signs q.4 hours. 2. Activity as tolerated. 3. Allergies, NKDA. 4. Hep-Lock. 5. Continue fpc medications. 6. Diet, renal and ADA. 7. Accu-Chek before meals and sliding scale mild with regular insulin. 8. Cardizem infusion at 5 mL per hour. 9. Cardiology consult. 10. Nephrology consult. Job ID: [id number] [facility]
[2018-11-22] MEDS ORDERED: Mag-Al 1200 mg/1200 mg/30 ML UDCUP PO PRN (07:41)
[2018-11-22] MEDS ORDERED: Sodium Chloride 0.9% 10 ML ONE (08:26)
[2018-11-22] MEDS ORDERED: Prevnar 13-Val Conj/PF 0.5 ML SYRINGE IM ONE (09:00)
[2018-11-22] MEDS ORDERED: Diltiazem HCl SR 90 mg Capsule PO SCH (09:00)
[2018-11-22] MEDS: Escitalopram Oxalate 10 mg Tablet PO SCH (09:14)
[2018-11-22] MEDS: Sevelamer Carbonate 800 MG TAB PO SCH ×3 (09:14→17:25)
[2018-11-22] MEDS: levETIRAcetam 500 mg/5 ml Oral Solution PO SCH ×2 (09:15→21:47)
[2018-11-22] MEDS: Cinacalcet HCl 30 MG TAB PO SCH (09:15)
[2018-11-22] MEDS: Folic Acid/Vit B Comp W-C PO SCH (09:15)
[2018-11-22] MEDS: Divalproex Sodium 125 mg Sprinkle Capsule PO SCH ×3 (09:15→21:47)
[2018-11-22] MEDS: Carvedilol 6.25 MG TAB PO SCH ×2 (09:15→21:47)
[2018-11-22] MEDS: Artificial Tear Sol 15 ML BOT EA EYE SCH ×2 (09:17→21:58)
[2018-11-22] MEDS: Insulin Regular 300 UNITS/3 ML VIAL SC PRN ×2 (11:50→17:26)
--- NOTE | 2018-11-22 15:50 | PRG ---
DATE OF SERVICE: 11/22/2018 SUBJECTIVE: A 63-year-old female being seen for end-stage renal disease. The patient denied nausea, vomiting, or chest pain. OBJECTIVE: GENERAL: The patient is awake and alert. VITAL SIGNS: Afebrile, pulse 73, breathing 16, and blood pressure 137/69. GENERAL APPEARANCE AND MENTAL STATUS: Fair. HEAD/NECK: Normocephalic. Atraumatic. EYES: EOMI. No deformity. EARS: Clear. No ulcers. NOSE: Intact. No lesions. MOUTH: Clear. No discharge. THROAT: Clear. No exudate. LUNGS: Clear. No crackles. CARDIAC: S1, S2. No rub. ABDOMEN: Benign. Bowel sounds positive. GENITALIA/RECTUM: Bansal absent. BACK/EXTREMITIES: Edema 0+. NEUROLOGICAL: Alert and motor intact. SKIN: LYMPHATICS: LABORATORY DATA: Reviewed. ASSESSMENT AND PLAN: 1. Stage 6 chronic kidney disease. Plan dialysis. 2. Hypertension, stable. 3. Anemia, stable. 4. Medication based on GFR appropriate. Job ID: [id number]
--- NOTE | 2018-11-22 16:00 | CON ---
DATE OF CONSULTATION: 11/21/2018 TIME OF SERVICE: 8 p.m. REASON FOR CONSULTATION: End-stage kidney disease for maintenance hemodialysis. HISTORY OF PRESENT ILLNESS: A 63-year-old female was sent over for dialysis after altered mental status. The patient denied nausea, vomiting, or chest pain. PAST MEDICAL HISTORY: Significant for end-stage kidney disease, hypertension, anemia, atrial fibrillation, history of liver failure, seizure disorder, history of drug use, history of mastectomy, radiation, history of AV fistula, history of tunneled dialysis catheter. MEDICATIONS: Home medications list reviewed. Hospital medications list reviewed. ALLERGIES: REVIEWED. REVIEW OF SYSTEMS: A 15-point review of system was performed, negative except for positives noted above. GENERAL: HEAD: NECK: No swelling or lumps. NOSE: No epistaxis or discharge. EYES: No diplopia or pain. RESPIRATORY: CARDIOVASCULAR: GASTROINTESTINAL: /FINANCIAL REPRESENTATIVE: MUSCULOSKELETAL: No joint pain. NEUROPSYCHIATRIC SYSTEMS: No suicidal ideation. No ideation. SKIN: Denies any rash or ulcer. CONSTITUTIONAL: No fever or chills. PHYSICAL EXAMINATION: GENERAL: The patient is awake and alert. VITAL SIGNS: Breathing 16, blood pressure was 120/60, and pulse was 120. GENERAL APPEARANCE AND MENTAL STATUS: Fair. HEAD/NECK: Normocephalic. Atraumatic. EYES: EOMI. No deformity. EARS: Clear. No ulcers. NOSE: Intact. No lesions. MOUTH: Clear. No discharge. THROAT: Clear. No exudate. LUNGS: Clear. No crackles. CARDIAC: S1, S2. No rub. ABDOMEN: Benign. Bowel sounds positive. GENITALIA/RECTUM: Bansal absent. BACK/EXTREMITIES: Edema 0+. NEUROLOGICAL: Alert and motor intact. SKIN: LYMPHATICS: LABORATORY DATA: Reviewed. ASSESSMENT AND PLAN: 1. Stage 6 chronic kidney disease. No indication for dialysis. 2. Hypertension, stable. 3. Anemia, stable. 4. Medication based on GFR appropriate. 5. Atrial fibrillation with uncontrolled rate. Management per primary team. Job ID: [id number]
[2018-11-22] MEDS: hydrOXYzine 25 MG TAB PO PRN (17:26)
[2018-11-22] MEDS: Diltiazem HCl SR 60 mg Capsule PO SCH (21:47)
--- NOTE | 2018-11-23 01:33 | CON ---
DATE OF CONSULTATION: HISTORY: Lindsey Forrest is a 63-year-old white female with history of atrial arrhythmias, end-stage renal disease, and liver failure. I first evaluated her in October 2010 when she presented with heaviness in her chest after being off her blood pressure medication for 2 weeks. That was her second admission for chest discomfort. She underwent cardiac catheterization. This revealed a large high first diagonal with an 80% lesion, 20% mid LAD lesion, 20% proximal right coronary artery lesion, and 30% right posterior descending lesion. She underwent placement of a PROMUS 2.75 x 12 mm stent in the 80% lesion in the diagonal with reduction to 0%. Left ventriculogram revealed mild global hypokinesis with ejection fraction of 40% to 45%. She never did return for followup after that. She was hospitalized in January 2015 after having not gone to dialysis for 10 days. She went into atrial flutter and at times looked like atrial fibrillation with fast ventricular response. She was placed on a Cardizem drip, given a dose of digoxin. She was seen by Dr. Vidales, java spring developer at that time. He felt it was best to treat her medically and she did not undergo ablation. It was also felt that she was not an anticoagulation candidate with her renal failure and hepatic failure. She was again admitted in September 2017 with episodes of atrial fibrillation with fast ventricular response. She was started on IV diltiazem and converted back to sinus rhythm. It was again felt best to treat her medically. She was again admitted yesterday on November 21, 2018, because of a change of mental status. She was unresponsive and had a high blood sugar. Due to her change in mental status, she did not undergo dialysis. She was transferred to the hospital and found to be in atrial fibrillation with rapid ventricular response. She was placed on intravenous Cardizem and converted to sinus rhythm. The patient cannot provide any coherent history. PAST MEDICAL HISTORY: End-stage renal disease, on dialysis since May 2010; liver failure with hyperammonemia; hypertension; diabetes; seizure disorder; dementia; history of paroxysmal atrial fibrillation and flutter; coronary artery disease. PAST SURGICAL HISTORY: Mastectomy, status post radiation. She also has undergone stent placement in a large first diagonal in October 2010. MEDICATIONS: 1. Carvedilol 6.25 BID. 2. Sensipar 30 mg daily. 3. Cardizem 90 SR daily. 4. Depakote 125 mg t.i.d. 5. Humulin R. 6. Lactulose 60 mL t.i.d. 7. Namenda 5 mg b.i.d. 8. Sevelamer 2.4 g t.i.d. ALLERGIES: PENICILLIN. SOCIAL HISTORY: She lives in a snf. She does not smoke or drink. REVIEW OF SYSTEMS: Unobtainable. PHYSICAL EXAMINATION: VITAL SIGNS: Blood pressure 139/65 and pulse 72. HEENT: PERRL. NECK: Supple. CHEST: Clear. CARDIAC: S1 and S2 normal without any S3 or S4. There is a 2/6 systolic murmur in the aortic area. ABDOMEN: Normal bowel sounds without tenderness. EXTREMITIES: No edema. NEUROLOGICAL: The patient is confused and moves all extremities. LABORATORY DATA: EKG on admission revealed atrial fibrillation with rapid ventricular response of 119 per minute with nonspecific ST- and T-wave changes. Hemoglobin 10.5, hematocrit 30.8, white count 5600, and platelets 176,000. The pH of 7.473, pCO2 of 37.4, and pO2 of 67.1. Ammonia is elevated at 93. Troponin I 0.226. Sodium 139, potassium 3.7, chloride 102, carbon dioxide 25, BUN 51, and creatinine 8.70. Brain CT revealed no acute findings. IMPRESSION: 1. History of atrial arrhythmias, in December 2014, September 2017 and now. This seemed to convert with intravenous Cardizem. It has been felt that she is not a candidate for anticoagulation with her liver and renal failure. 2. History of coronary artery disease, status post stent placement in the first diagonal. 3. Mental status changes, probably due to hepatic encephalopathy. 4. Liver failure. 5. End-stage renal disease, on chronic dialysis. 6. Hypertension. 7. Hyperlipidemia. 8. Former smoker. 9. Seizure disorder. PLAN: The patient has returned to sinus rhythm. I did change her Cardizem SR to 60 mg b.i.d. and we will start tapering the Cardizem in the morning. Job ID: [id number] MTDD
[2018-11-23] MEDS: Sevelamer Carbonate 800 MG TAB PO SCH ×3 (09:53→22:20)
[2018-11-23] MEDS: Folic Acid/Vit B Comp W-C PO SCH (09:53)
[2018-11-23] MEDS: Diltiazem HCl SR 60 mg Capsule PO SCH ×3 (09:54→22:28)
[2018-11-23] MEDS: Divalproex Sodium 125 mg Sprinkle Capsule PO SCH ×4 (09:54→22:28)
[2018-11-23] MEDS: hydrOXYzine 25 MG TAB PO PRN (09:54)
[2018-11-23] MEDS: Escitalopram Oxalate 10 mg Tablet PO SCH (09:54)
[2018-11-23] MEDS: Cinacalcet HCl 30 MG TAB PO SCH (09:54)
[2018-11-23] MEDS: Artificial Tear Sol 15 ML BOT EA EYE SCH ×2 (09:55→22:19)
[2018-11-23] MEDS: levETIRAcetam 500 mg/5 ml Oral Solution PO SCH ×2 (09:55→22:18)
[2018-11-23] MEDS: Carvedilol 6.25 MG TAB PO SCH ×2 (10:10→22:19)
--- NOTE | 2018-11-23 13:02 | PRG ---
DATE OF SERVICE: 11/23/2018 SUBJECTIVE: A 63-year-old female is being seen for end-stage renal disease. The patient denied nausea, vomiting, or chest pain. OBJECTIVE: VITAL SIGNS: The patient is awake and alert. VITAL SIGNS: Pulse 72, breathing 16, blood pressure 135/64. GENERAL APPEARANCE AND MENTAL STATUS: Fair. HEAD/NECK: Normocephalic. Atraumatic. EYES: EOMI. No deformity. EARS: Clear. No ulcers. NOSE: Intact. No lesions. MOUTH: Clear. No discharge. THROAT: Clear. No exudate. LUNGS: Clear. No crackles. CARDIAC: S1, S2. No rub. ABDOMEN: Benign. Bowel sounds positive. GENITALIA/RECTUM: Bansal absent. BACK/EXTREMITIES: Edema 0+. NEUROLOGICAL: Alert and motor intact. SKIN: LYMPHATICS: LABORATORY DATA: Reviewed. ASSESSMENT: 1. Stage 6 chronic kidney disease, stable. 2. Hypertension, stable. 3. Anemia, stable. 4. Medication based on GFR appropriate. Job ID: [id number]
[2018-11-24] MEDS: Cinacalcet HCl 30 MG TAB PO SCH (08:55)
[2018-11-24] MEDS: levETIRAcetam 500 mg/5 ml Oral Solution PO SCH ×2 (08:55→20:40)
[2018-11-24] MEDS: Artificial Tear Sol 15 ML BOT EA EYE SCH ×2 (08:55→21:28)
[2018-11-24] MEDS: Divalproex Sodium 125 mg Sprinkle Capsule PO SCH ×3 (08:56→20:39)
[2018-11-24] MEDS: Carvedilol 6.25 MG TAB PO SCH ×2 (08:56→20:39)
[2018-11-24] MEDS: Folic Acid/Vit B Comp W-C PO SCH (08:56)
[2018-11-24] MEDS: Diltiazem HCl SR 60 mg Capsule PO SCH ×2 (08:56→20:40)
[2018-11-24] MEDS: Escitalopram Oxalate 10 mg Tablet PO SCH (08:56)
[2018-11-24] MEDS: Sevelamer Carbonate 800 MG TAB PO SCH ×3 (08:57→17:10)
--- NOTE | 2018-11-24 11:51 | PRG ---
DATE OF SERVICE: 11/24/2018 SUBJECTIVE: This is a 63-year-old female, being seen for end-stage renal disease. The patient denies any nausea, vomiting, or chest pain. OBJECTIVE: CONSTITUTIONAL: The patient is awake and alert. VITAL SIGNS: Afebrile. Pulse 70, breathing 16, blood pressure 147/79. GENERAL APPEARANCE AND MENTAL STATUS: Fair. HEAD/NECK: Normocephalic. Atraumatic. EYES: EOMI. No deformity. EARS: Clear. No ulcers. NOSE: Intact. No lesions. MOUTH: Clear. No discharge. THROAT: Clear. No exudate. LUNGS: Clear. No crackles. CARDIAC: S1, S2. No rub. ABDOMEN: Benign. Bowel sounds positive. GENITALIA/RECTUM: Bansal absent. BACK/EXTREMITIES: Edema 0+. NEUROLOGICAL: Alert and motor intact. SKIN: LYMPHATICS: LABORATORY DATA: Reviewed. ASSESSMENT AND PLAN: 1. Stage 3 chronic kidney disease, stable. 2. Hypertension, stable. 3. Anemia, stable. 4. Medications based on GFR appropriate. Job ID: [id number]
[2018-11-25] MEDS ORDERED: Digoxin 0.5 MG/2 ML AMP SLOW IVP SCH (11:45)
[2018-11-25] MEDS: levETIRAcetam 500 mg/5 ml Oral Solution PO SCH ×2 (12:13→21:48)
[2018-11-25] MEDS: Sevelamer Carbonate 800 MG TAB PO SCH ×3 (12:15→17:13)
[2018-11-25] MEDS: Cinacalcet HCl 30 MG TAB PO SCH (12:16)
[2018-11-25] MEDS: Diltiazem HCl SR 60 mg Capsule PO SCH (12:16)
[2018-11-25] MEDS: Carvedilol 6.25 MG TAB PO SCH ×2 (12:16→21:47)
[2018-11-25] MEDS: Divalproex Sodium 125 mg Sprinkle Capsule PO SCH ×3 (12:17→21:48)
[2018-11-25] MEDS: Folic Acid/Vit B Comp W-C PO SCH (12:17)
[2018-11-25] MEDS: Escitalopram Oxalate 10 mg Tablet PO SCH (12:18)
[2018-11-25] MEDS: Artificial Tear Sol 15 ML BOT EA EYE SCH ×2 (12:36→21:47)
--- NOTE | 2018-11-25 13:22 | PRG ---
DATE OF SERVICE: 11/25/2018 SUBJECTIVE: A 63-year-old female, being seen for end-stage renal disease. The patient denied nausea, vomiting, or chest pain. OBJECTIVE: CONSTITUTIONAL: The patient is awake and alert. VITAL SIGNS: Afebrile, pulse 78, breathing 16, blood pressure 142/65. GENERAL APPEARANCE AND MENTAL STATUS: Fair. HEAD/NECK: Normocephalic. Atraumatic. EYES: EOMI. No deformity. EARS: Clear. No ulcers. NOSE: Intact. No lesions. MOUTH: Clear. No discharge. THROAT: Clear. No exudate. LUNGS: Clear. No crackles. CARDIAC: S1, S2. No rub. ABDOMEN: Benign. Bowel sounds positive. GENITALIA/RECTUM: Bansal absent. BACK/EXTREMITIES: Edema 0+. NEUROLOGICAL: Alert and motor intact. SKIN: LYMPHATICS: LABORATORY DATA: Hemoglobin 10.5. ASSESSMENT AND PLAN: 1. Stage 6 chronic kidney disease. Plan dialysis. 2. Hypertension, stable. 3. Anemia, stable. 4. Medication based on GFR appropriate. Job ID: [id number]
[2018-11-25] MEDS ORDERED: Diltiazem HCl 125 MG, Admixture Fee 1 EACH in Sodium Chloride 0.9% 100 ML IVPB SCH (13:31)
[2018-11-25] MEDS ORDERED: Diltiazem HCl SR 90 mg Capsule PO SCH (21:00)
[2018-11-26 05:38] LABS: Chloride 103 mmol/L (98-107); Potassium 4.1 mmol/L (3.5-5.1); Sodium 140 mmol/L (136-145)
[2018-11-26 05:39] LABS: Glucose 130 mg/dL (80-115)
[2018-11-26 05:41] LABS: Anion Gap 15 mmol/L (10-20); Carbon Dioxide 26 mmol/L (23-31)
[2018-11-26 05:43] LABS: BUN (Urea Nitrogen) 24 mg/dL (9.8-20.1); Calc. Creatinine Clearance 10 mL/min (70-130); Estimated GFR-MDRD 7
[2018-11-26] MEDS: Divalproex Sodium 125 mg Sprinkle Capsule PO SCH ×3 (08:42→20:42)
[2018-11-26] MEDS: levETIRAcetam 500 mg/5 ml Oral Solution PO SCH ×2 (08:43→20:43)
[2018-11-26] MEDS: Cinacalcet HCl 30 MG TAB PO SCH (08:43)
[2018-11-26] MEDS: Folic Acid/Vit B Comp W-C PO SCH (08:43)
[2018-11-26] MEDS: Carvedilol 6.25 MG TAB PO SCH ×2 (08:43→20:43)
[2018-11-26] MEDS: Sevelamer Carbonate 800 MG TAB PO SCH ×3 (08:43→17:29)
[2018-11-26] MEDS: Escitalopram Oxalate 10 mg Tablet PO SCH (08:43)
[2018-11-26] MEDS: Artificial Tear Sol 15 ML BOT EA EYE SCH ×2 (08:44→20:42)
--- NOTE | 2018-11-26 13:43 | PDOC.CPN ---
- Subjective Date: 11/26/18 Time: 13:41 Interval history: Doing well, no new issues, demented. - Review of Systems ROS unobtainable: due to mental status - Objective Allergies/Adverse Reactions: Allergies Allergy/AdvReac Type Severity Reaction Status Date / Time Penicillins Allergy Unknown Verified 09/25/18 16:17 Visit Medications: Current Medications Acetaminophen (Tylenol) 650 mg PO Q4H PRN PRN Reason: Headache/Fever or Pain Al Hydroxide/Mg Hydroxide (Maalox) 30 ml PO Q6H PRN PRN Reason: Heartburn or Indigestion Artificial Tears (Liquitears 15ml Bottle) 1 drop EA EYE BID [facility] Last Admin: 11/26/18 08:44 Dose: 1 drop Carvedilol (Coreg) 6.25 mg PO BID [facility] Last Admin: 11/26/18 08:43 Dose: 6.25 mg Cinacalcet (Sensipar) 30 mg PO QAM [facility] Last Admin: 11/26/18 08:43 Dose: 30 mg Dextrose/Water (Dextrose 50%) 25 gm IVP PRN PRN PRN Reason: HYPOGLYCEMIA PROTOCOL Diltiazem HCl (Cardizem) 60 mg PO BID [facility] Last Admin: 11/26/18 08:43 Dose: 60 mg Divalproex Sodium (Depakote Sprinkle) 125 mg PO TID [facility] Last Admin: 11/26/18 08:42 Dose: 125 mg Escitalopram Oxalate (Lexapro) 10 mg PO QAM [facility] Last Admin: 11/26/18 08:43 Dose: 10 mg Glucagon (Glucagon) 1 mg IM PRN PRN PRN Reason: HYPOGLYCEMIA PROTOCOL Guaifenesin (Robitussin Sf) 200 mg PO Q4H PRN PRN Reason: Cough Hydroxyzine HCl (Atarax) 25 mg PO Q6H PRN PRN Reason: Itching Last Admin: 11/23/18 09:54 Dose: 25 mg Dextrose/Water (D5w) 1,000 mls @ 0 mls/hr IV INF PRN PRN Reason: HYPOGLYCEMIA PROTOCOL Insulin Human Regular (Humulin R) 0 units SC .MILD SLIDING PRN; Protocol PRN Reason: MILD SLIDING SCALE Last Admin: 11/22/18 17:26 Dose: 2 unit Lactulose (Lactulose) 40 gm PO TID [facility] Last Admin: 11/26/18 08:43 Dose: 40 gm Levetiracetam (Keppra Oral Solution) 500 mg PO BID [facility] Last Admin: 11/26/18 08:43 Dose: 500 mg Memantine (Namenda) 5 mg PO BID [facility] Last Admin: 11/26/18 08:43 Dose: 5 mg Sevelamer Carbonate (Renvela) 2,400 mg PO TID-WM [facility] Last Admin: 11/26/18 11:43 Dose: 2,400 mg Vitamin B Complex/Vit C/Folic Acid (Nephro-Nicolasa Tablet) 1 tab PO QAM [facility] Last Admin: 11/26/18 08:43 Dose: 1 tab Vital Signs & Weight: Vital Signs Temp Pulse Resp BP Pulse Ox 11/26/18 11:46 98.2 F 69 16 130/63 96 11/26/18 07:36 98.8 F 73 14 123/60 97 11/26/18 04:00 99.1 F 72 16 116/59 L 96 Weight 135 lb 3.2 oz - Physical Exam General: no apparent distress HEENT: mucus membranes moist, normocephaly Neck: supple neck, midline trachea Cardiac: regular rate and rhythm, systolic murmur Lungs: clear to auscultation, no wheeze, rales, rhonchi Neuro: grossly intact, coordination normal Abdomen: active bowel sounds, soft, non-tender Skin: clear Musculoskeletal: normal range of motion - Labs Result Diagrams: 11/21/18 13:06 11/26/18 04:25 Troponin/CKMB CK-MB (CK-2) 1.6 ng/mL (0-6.6) 11/21/18 13:06 Troponin I 0.226 ng/mL (< 0.028) H 11/21/18 16:54 - Telemetry Sinus rhythms and dysrhythmias: sinus rhythm - Assessment/Plan Assessment/Plan: 1. Paroxysmal afib 2. CAD, stable. 3. Hepatic encophalopathy 4. ESRD on HD. 5. Seizure disorder. PLAN: - Continue cardizem and BB, had to change cardizem to short acting as could not crush long acting and she is not swallowing pills. - Will follow.
--- NOTE | 2018-11-26 14:40 | PRG ---
DATE OF SERVICE: 11/26/2018 SUBJECTIVE: This is a 63-year-old female, being seen for end-stage renal disease. The patient denied nausea, vomiting, or chest pain. OBJECTIVE: GENERAL: The patient is awake and alert. VITAL SIGNS: Pulse 69, breathing 16, blood pressure 130/63. GENERAL APPEARANCE AND MENTAL STATUS: Fair. HEAD/NECK: Normocephalic. Atraumatic. EYES: EOMI. No deformity. EARS: Clear. No ulcers. NOSE: Intact. No lesions. MOUTH: Clear. No discharge. THROAT: Clear. No exudate. LUNGS: Clear. No crackles. CARDIAC: S1, S2. No rub. ABDOMEN: Benign. Bowel sounds positive. GENITALIA/RECTUM: Bansal absent. BACK/EXTREMITIES: Edema 0+. NEUROLOGICAL: Alert and motor intact. SKIN: LYMPHATICS: LABORATORY DATA: Reviewed. ASSESSMENT AND PLAN: 1. Stage 6 chronic kidney disease, stable. 2. Hypertension, stable. 3. Anemia, stable. Medications based on GFR appropriate. Job ID: [id number]
[2018-11-27 06:38] LABS: Hemoglobin 11.2 g/dL (12.0-16.0)
[2018-11-27 06:47] LABS: Anion Gap 15 mmol/L (10-20); BUN (Urea Nitrogen) 35 mg/dL (9.8-20.1); Calc. Creatinine Clearance 7 mL/min (70-130); Calcium 10.6 mg/dL (7.8-10.44); Carbon Dioxide 24 mmol/L (23-31); Chloride 101 mmol/L (98-107); Estimated GFR-MDRD 5; Glucose 102 mg/dL (80-115); Potassium 4.3 mmol/L (3.5-5.1); Sodium 136 mmol/L (136-145)
[2018-11-27] MEDS: Carvedilol 6.25 MG TAB PO SCH ×2 (08:30→21:20)
[2018-11-27] MEDS: Folic Acid/Vit B Comp W-C PO SCH (08:30)
[2018-11-27] MEDS: levETIRAcetam 500 mg/5 ml Oral Solution PO SCH ×2 (08:30→21:19)
[2018-11-27] MEDS: Cinacalcet HCl 30 MG TAB PO SCH (08:31)
[2018-11-27] MEDS: Divalproex Sodium 125 mg Sprinkle Capsule PO SCH (08:31)
[2018-11-27] MEDS: Escitalopram Oxalate 10 mg Tablet PO SCH (08:31)
[2018-11-27] MEDS: Sevelamer Carbonate 800 MG TAB PO SCH ×3 (08:31→17:58)
[2018-11-27] MEDS: Artificial Tear Sol 15 ML BOT EA EYE SCH ×2 (08:31→22:55)
--- NOTE | 2018-11-27 15:01 | PRG ---
DATE OF SERVICE: 11/27/2018 SUBJECTIVE: This is a 63-year-old female, being seen for end-stage kidney disease. The patient denied any nausea, vomiting, or chest pain. OBJECTIVE: See above. GENERAL: The patient is awake and alert. VITAL SIGNS: Pulse 75, breathing 16, and blood pressure 129/63. GENERAL APPEARANCE AND MENTAL STATUS: Fair. HEAD/NECK: Normocephalic. Atraumatic. EYES: EOMI. No deformity. EARS: Clear. No ulcers. NOSE: Intact. No lesions. MOUTH: Clear. No discharge. THROAT: Clear. No exudate. LUNGS: Clear. No crackles. CARDIAC: S1, S2. No rub. ABDOMEN: Benign. Bowel sounds positive. GENITALIA/RECTUM: Bansal absent. BACK/EXTREMITIES: Edema 0+. NEUROLOGICAL: Alert and motor intact. SKIN: LYMPHATICS: LABORATORY DATA: Reviewed. ASSESSMENT AND PLAN: 1. Stage 6 chronic kidney disease, stable. 2. Hypertension, stable. 3. Anemia, stable. 4. Medications based on GFR appropriate. Job ID: [id number]
--- NOTE | 2018-11-27 19:02 | PDOC.CPN ---
- Subjective Date: 11/27/18 Time: 19:01 Interval history: No new issues. Remains minimally verbal due to dementia. - Review of Systems ROS unobtainable: due to mental status - Objective Allergies/Adverse Reactions: Allergies Allergy/AdvReac Type Severity Reaction Status Date / Time Penicillins Allergy Unknown Verified 09/25/18 16:17 Visit Medications: Current Medications Acetaminophen (Tylenol) 650 mg PO Q4H PRN PRN Reason: Headache/Fever or Pain Al Hydroxide/Mg Hydroxide (Maalox) 30 ml PO Q6H PRN PRN Reason: Heartburn or Indigestion Artificial Tears (Liquitears 15ml Bottle) 1 drop EA EYE BID [facility] Last Admin: 11/27/18 08:31 Dose: 1 drop Carvedilol (Coreg) 6.25 mg PO BID [facility] Last Admin: 11/27/18 08:30 Dose: 6.25 mg Cinacalcet (Sensipar) 30 mg PO QAM [facility] Last Admin: 11/27/18 08:31 Dose: 30 mg Dextrose/Water (Dextrose 50%) 25 gm IVP PRN PRN PRN Reason: HYPOGLYCEMIA PROTOCOL Diltiazem HCl (Cardizem) 60 mg PO BID [facility] Last Admin: 11/27/18 08:31 Dose: 60 mg Divalproex Sodium (Depakote Sprinkle) 125 mg PO BID [facility] Last Admin: 11/27/18 08:31 Dose: 125 mg Escitalopram Oxalate (Lexapro) 10 mg PO QAM [facility] Last Admin: 11/27/18 08:31 Dose: 10 mg Glucagon (Glucagon) 1 mg IM PRN PRN PRN Reason: HYPOGLYCEMIA PROTOCOL Guaifenesin (Robitussin Sf) 200 mg PO Q4H PRN PRN Reason: Cough Dextrose/Water (D5w) 1,000 mls @ 0 mls/hr IV INF PRN PRN Reason: HYPOGLYCEMIA PROTOCOL Insulin Human Regular (Humulin R) 0 units SC .MILD SLIDING PRN; Protocol PRN Reason: MILD SLIDING SCALE Last Admin: 11/22/18 17:26 Dose: 2 unit Lactulose (Lactulose) 40 gm PO TID [facility] Last Admin: 11/27/18 15:54 Dose: 40 gm Levetiracetam (Keppra Oral Solution) 500 mg PO BID [facility] Last Admin: 11/27/18 08:30 Dose: 500 mg Memantine (Namenda) 5 mg PO BID [facility] Last Admin: 11/27/18 08:34 Dose: 5 mg Sevelamer Carbonate (Renvela) 2,400 mg PO TID-WM [facility] Last Admin: 11/27/18 17:58 Dose: 2,400 mg Vitamin B Complex/Vit C/Folic Acid (Nephro-Nicolasa Tablet) 1 tab PO QAM [facility] Last Admin: 11/27/18 08:30 Dose: 1 tab Vital Signs & Weight: Vital Signs Temp Pulse Resp BP Pulse Ox 11/27/18 16:29 98.1 F 83 18 131/61 97 11/27/18 11:32 98.5 F 70 16 129/60 97 11/27/18 08:31 97 11/27/18 07:54 98.7 F 70 14 139/65 97 Weight 135 lb 8 oz - Physical Exam General: no apparent distress HEENT: mucus membranes moist, normocephaly Neck: supple neck, midline trachea Cardiac: regular rate and rhythm, systolic murmur Lungs: clear to auscultation, no wheeze, rales, rhonchi Neuro: grossly intact Abdomen: active bowel sounds, soft, non-tender Skin: clear Musculoskeletal: no pain - Labs Result Diagrams: 11/27/18 05:59 11/27/18 05:59 Troponin/CKMB CK-MB (CK-2) 1.6 ng/mL (0-6.6) 11/21/18 13:06 Troponin I 0.226 ng/mL (< 0.028) H 11/21/18 16:54 - Telemetry Sinus rhythms and dysrhythmias: sinus rhythm - Assessment/Plan Assessment/Plan: 1. Paroxysmal afib 2. CAD, stable. 3. Hepatic encophalopathy 4. ESRD on HD. 5. Seizure disorder. PLAN: - Continue cardizem and BB. - CV stable. - Will follow.
[2018-11-27] MEDS: Acetaminophen 325 MG TAB PO PRN (21:30)
[2018-11-28] MEDS: Sevelamer Carbonate 800 MG TAB PO SCH ×3 (07:30→16:06)
--- NOTE | 2018-11-28 10:32 | PRG ---
DATE OF SERVICE: 11/28/2018 SUBJECTIVE: Patient was seen and examined at bedside and overnight events noted. Patient denies any shortness of breath or chest pain or palpitation. No history of nausea or vomiting or diarrhea or fever or chills or cramps. OBJECTIVE: GENERAL: This is a well-built female, in no apparent distress. VITAL SIGNS: Temperature 98. Heart rate 64. Respiratory rate 18. Blood pressure 112/65. HEENT: Atraumatic, normocephalic. Oral mucosa is moist NECK: Supple. CARDIOVASCULAR: S1, S2 heard. Rate and rhythm regular. RESPIRATORY: Clear to auscultation. GASTROINTESTINAL: Abdomen is soft. MUSCULOSKELETAL: No tenderness. No edema. DERMATOLOGIC: No skin rash. NEUROLOGIC: Alert and awake and oriented X3. No focal neurologic deficits. Moving all the extremities. PSYCHIATRIC: Mood and affect normal. LABORATORY DATA: Not done today. ASSESSMENT AND PLAN: 1. End-stage renal disease. Continue dialysis. 2. Hypertension. 3. Anemia. 4. Edema. Plan to continue dialysis Wednesday, Wednesday, and Wednesday as tolerated. Job ID: [id number]
[2018-11-28] MEDS ORDERED: Albumin 25% 25 GM/100 ML BOT IVPB SCH ×2 (11:30→13:45)
[2018-11-28] MEDS ORDERED: Sodium Chloride 0.9% 250 ML IV SCH ×2 (11:30→13:45)
[2018-11-28] MEDS: levETIRAcetam 500 mg/5 ml Oral Solution PO SCH ×2 (11:51→22:14)
[2018-11-28] MEDS: Folic Acid/Vit B Comp W-C PO SCH (11:51)
[2018-11-28] MEDS: Escitalopram Oxalate 10 mg Tablet PO SCH (11:51)
[2018-11-28] MEDS: Cinacalcet HCl 30 MG TAB PO SCH (11:51)
[2018-11-28] MEDS: Carvedilol 6.25 MG TAB PO SCH ×2 (11:51→22:13)
[2018-11-28] MEDS: Artificial Tear Sol 15 ML BOT EA EYE SCH ×2 (11:52→22:14)
--- NOTE | 2018-11-28 16:01 | PDOC.CPN ---
- Subjective Date: 11/28/18 Time: 15:59 Interval history: No new issues. Remains in sinus rhythm. Pleasantly demented. - Review of Systems ROS unobtainable: due to mental status - Objective Allergies/Adverse Reactions: Allergies Allergy/AdvReac Type Severity Reaction Status Date / Time Penicillins Allergy Unknown Verified 09/25/18 16:17 Visit Medications: Current Medications Acetaminophen (Tylenol) 650 mg PO Q4H PRN PRN Reason: Headache/Fever or Pain Last Admin: 11/27/18 21:30 Dose: 650 mg Al Hydroxide/Mg Hydroxide (Maalox) 30 ml PO Q6H PRN PRN Reason: Heartburn or Indigestion Artificial Tears (Liquitears 15ml Bottle) 1 drop EA EYE BID [facility] Last Admin: 11/28/18 11:52 Dose: 1 drop Carvedilol (Coreg) 6.25 mg PO BID [facility] Last Admin: 11/28/18 11:51 Dose: 6.25 mg Cinacalcet (Sensipar) 30 mg PO QAM [facility] Last Admin: 11/28/18 11:51 Dose: 30 mg Dextrose/Water (Dextrose 50%) 25 gm IVP PRN PRN PRN Reason: HYPOGLYCEMIA PROTOCOL Diltiazem HCl (Cardizem) 60 mg PO BID [facility] Last Admin: 11/28/18 13:32 Dose: 60 mg Escitalopram Oxalate (Lexapro) 10 mg PO QAM [facility] Last Admin: 11/28/18 11:51 Dose: 10 mg Glucagon (Glucagon) 1 mg IM PRN PRN PRN Reason: HYPOGLYCEMIA PROTOCOL Guaifenesin (Robitussin Sf) 200 mg PO Q4H PRN PRN Reason: Cough Dextrose/Water (D5w) 1,000 mls @ 0 mls/hr IV INF PRN PRN Reason: HYPOGLYCEMIA PROTOCOL Insulin Human Regular (Humulin R) 0 units SC .MILD SLIDING PRN; Protocol PRN Reason: MILD SLIDING SCALE Last Admin: 11/22/18 17:26 Dose: 2 unit Lactulose (Lactulose) 40 gm PO TID [facility] Last Admin: 11/28/18 11:50 Dose: 40 gm Levetiracetam (Keppra Oral Solution) 500 mg PO BID [facility] Last Admin: 11/28/18 11:51 Dose: 500 mg Memantine (Namenda) 5 mg PO BID [facility] Last Admin: 11/28/18 11:52 Dose: 5 mg Sevelamer Carbonate (Renvela) 2,400 mg PO TID-WM [facility] Last Admin: 11/28/18 11:50 Dose: 2,400 mg Vitamin B Complex/Vit C/Folic Acid (Nephro-Nicolasa Tablet) 1 tab PO QAM [facility] Last Admin: 11/28/18 11:51 Dose: 1 tab Vital Signs & Weight: Vital Signs Temp Pulse Pulse Pulse Pulse Pulse Pulse 11/28/18 15:07 98 F 69 11/28/18 13:30 124 H 11/28/18 11:48 98.1 F 124 H 11/28/18 10:36 135 H 124 H 124 H 124 H 130 H 11/28/18 07:22 98.2 F 65 Pulse Pulse Resp Resp Resp Resp BP 11/28/18 15:07 18 11/28/18 13:30 11/28/18 11:48 18 11/28/18 10:36 117 H 114 H 20 16 16 77/38 L 11/28/18 07:22 18 BP BP BP BP BP BP BP 11/28/18 15:07 124/57 L 11/28/18 13:30 11/28/18 11:48 11/28/18 10:36 84/48 L 86/50 L 90/52 L 93/51 L 104/55 L 109/59 L 11/28/18 07:22 112/65 BP Pulse Ox Pulse Ox Pulse Ox Pulse Ox Pulse Ox Pulse Ox 11/28/18 15:07 98 11/28/18 13:30 93/51 L 11/28/18 11:48 101/52 L 100 11/28/18 10:36 100 100 100 100 100 11/28/18 07:22 97 Weight 135 lb 14.4 oz - Physical Exam General: no apparent distress HEENT: mucus membranes moist, normocephaly Neck: supple neck, midline trachea Cardiac: regular rate and rhythm, no murmur Lungs: clear to auscultation Neuro: grossly intact Abdomen: active bowel sounds Skin: clear Musculoskeletal: normal range of motion - Labs Result Diagrams: 11/27/18 05:59 11/27/18 05:59 Troponin/CKMB CK-MB (CK-2) 1.6 ng/mL (0-6.6) 11/21/18 13:06 Troponin I 0.226 ng/mL (< 0.028) H 11/21/18 16:54 - Telemetry Sinus rhythms and dysrhythmias: sinus rhythm - Assessment/Plan Assessment/Plan: 1. Paroxysmal afib 2. CAD, stable. 3. Hepatic encophalopathy 4. ESRD on HD. 5. Seizure disorder. PLAN: - Continue cardizem and BB. - CV stable. - Will sign off. Please call with any questions.
[2018-11-28] MEDS: Insulin Regular 300 UNITS/3 ML VIAL SC PRN (22:15)
[2018-11-29] MEDS: Sevelamer Carbonate 800 MG TAB PO SCH ×3 (08:24→16:45)
[2018-11-29] MEDS: levETIRAcetam 500 mg/5 ml Oral Solution PO SCH ×2 (08:24→20:40)
[2018-11-29] MEDS: Artificial Tear Sol 15 ML BOT EA EYE SCH ×2 (08:25→20:43)
[2018-11-29] MEDS: Cinacalcet HCl 30 MG TAB PO SCH (08:25)
[2018-11-29] MEDS: Carvedilol 6.25 MG TAB PO SCH ×2 (08:25→20:40)
[2018-11-29] MEDS: Folic Acid/Vit B Comp W-C PO SCH (08:25)
[2018-11-29] MEDS: Escitalopram Oxalate 10 mg Tablet PO SCH (08:25)
--- NOTE | 2018-11-29 17:13 | PRG ---
DATE OF SERVICE: 11/29/2018 OBJECTIVE: GENERAL: This is a well-built female, in no apparent distress. VITAL SIGNS: Temperature 98, pulse 64, respiratory 18, blood pressure 124/57. ASSESSMENT AND PLAN: 1. End-stage renal disease. Continue dialysis. 2. Hypertension, stable. 3. Anemia of chronic disease. 4. Edema, controlled. 5. The patient was hypotensive yesterday, better today. We will continue dialysis as tolerated. Job ID: [id number]
--- NOTE | 2018-11-29 17:50 | PDOC.CPN ---
- Subjective Date: 11/29/18 Time: 17:48 Interval history: She remains confused. Pleasantly demented. She had an episode of hypotension after her HD yesterday. Resolved after IV fluids given. - Review of Systems ROS unobtainable: due to mental status - Objective Allergies/Adverse Reactions: Allergies Allergy/AdvReac Type Severity Reaction Status Date / Time Penicillins Allergy Unknown Verified 09/25/18 16:17 Visit Medications: Current Medications Acetaminophen (Tylenol) 650 mg PO Q4H PRN PRN Reason: Headache/Fever or Pain Last Admin: 11/27/18 21:30 Dose: 650 mg Al Hydroxide/Mg Hydroxide (Maalox) 30 ml PO Q6H PRN PRN Reason: Heartburn or Indigestion Artificial Tears (Liquitears 15ml Bottle) 1 drop EA EYE BID [facility] Last Admin: 11/29/18 08:25 Dose: 1 drop Carvedilol (Coreg) 6.25 mg PO BID [facility] Last Admin: 11/29/18 08:25 Dose: 6.25 mg Cinacalcet (Sensipar) 30 mg PO QAM [facility] Last Admin: 11/29/18 08:25 Dose: 30 mg Dextrose/Water (Dextrose 50%) 25 gm IVP PRN PRN PRN Reason: HYPOGLYCEMIA PROTOCOL Diltiazem HCl (Cardizem) 60 mg PO BID [facility] Last Admin: 11/29/18 08:25 Dose: 60 mg Escitalopram Oxalate (Lexapro) 10 mg PO QAM [facility] Last Admin: 11/29/18 08:25 Dose: 10 mg Glucagon (Glucagon) 1 mg IM PRN PRN PRN Reason: HYPOGLYCEMIA PROTOCOL Guaifenesin (Robitussin Sf) 200 mg PO Q4H PRN PRN Reason: Cough Dextrose/Water (D5w) 1,000 mls @ 0 mls/hr IV INF PRN PRN Reason: HYPOGLYCEMIA PROTOCOL Insulin Human Regular (Humulin R) 0 units SC .MILD SLIDING PRN; Protocol PRN Reason: MILD SLIDING SCALE Last Admin: 11/28/18 22:15 Dose: 3 unit Lactulose (Lactulose) 40 gm PO TID [facility] Last Admin: 11/29/18 14:29 Dose: Not Given Levetiracetam (Keppra Oral Solution) 500 mg PO BID [facility] Last Admin: 11/29/18 08:24 Dose: 500 mg Memantine (Namenda) 5 mg PO BID [facility] Last Admin: 11/29/18 08:25 Dose: 5 mg Sevelamer Carbonate (Renvela) 2,400 mg PO TID-WM [facility] Last Admin: 11/29/18 16:45 Dose: Not Given Vitamin B Complex/Vit C/Folic Acid (Nephro-Nicolasa Tablet) 1 tab PO QAM [facility] Last Admin: 11/29/18 08:25 Dose: 1 tab Vital Signs & Weight: Vital Signs Temp Pulse Resp BP Pulse Ox 11/29/18 16:30 98.3 F 65 16 112/56 L 98 11/29/18 12:27 98.8 F 64 18 124/57 L 98 11/29/18 07:32 98.6 F 64 18 125/56 L 100 Weight 134 lb 9.6 oz - Physical Exam General: other (Disoriented but awake and alert.) HEENT: mucus membranes moist Neck: supple neck Cardiac: regular rate and rhythm, no murmur Lungs: clear to auscultation Neuro: no lateralizing findings Abdomen: active bowel sounds Skin: clear Musculoskeletal: no pain - Labs Result Diagrams: 11/27/18 05:59 11/27/18 05:59 Troponin/CKMB CK-MB (CK-2) 1.6 ng/mL (0-6.6) 11/21/18 13:06 Troponin I 0.226 ng/mL (< 0.028) H 11/21/18 16:54 - Telemetry Sinus rhythms and dysrhythmias: sinus rhythm - Assessment/Plan Assessment/Plan: 1. Paroxysmal afib 2. CAD, stable. 3. Hepatic encophalopathy 4. ESRD on HD. 5. Seizure disorder. PLAN: - Will stop Diltiazem due to hypotension after HD but continue BB. Currently remains in sinus rhythm. - CV stable otherwise.
[2018-11-30 07:35] LABS: #Basophils 0.1 thou/uL (0.0-0.2); #Eosinphils 0.3 thou/uL (0.0-0.7); #Lymphocytes 2.2 thou/uL (1.20-3.40); #Monocytes 0.5 thou/uL (0.11-0.59); %Basophils 1.5 % (0.0-1.0); %Eosinophils 4.9 % (0.0-10.0); %Lymphocytes 36.7 % (21.0-51.0); %Monocytes 7.6 % (0.0-10.0); %Neutrophils 49.3 % (42.0-75.0); Hemoglobin 9.2 g/dL (12.0-16.0); Mean Corpuscular HGB CONC 36.1 g/dL (32.0-36.0); Mean Corpuscular Hemoglobin 33.8 pg (27.0-31.0); Mean Corpuscular Volume 93.6 fL (78.0-98.0); Mean Platelet Volume 8.2 fL (7.4-10.4); Platelet Count 162 thou/uL (130-400); RBC Distribution Width 12.9 % (11.5-14.5); Red Blood Cell (RBC) Count 2.73 mill/uL (4.20-5.40)
[2018-11-30 07:48] LABS: Anion Gap 15 mmol/L (10-20); BUN (Urea Nitrogen) 30 mg/dL (9.8-20.1); Calc. Creatinine Clearance 8 mL/min (70-130); Calcium 10.6 mg/dL (7.8-10.44); Carbon Dioxide 25 mmol/L (23-31); Chloride 105 mmol/L (98-107); Estimated GFR-MDRD 6; Glucose 104 mg/dL (80-115); Potassium 3.7 mmol/L (3.5-5.1); Sodium 141 mmol/L (136-145)
[2018-11-30] MEDS: Sevelamer Carbonate 800 MG TAB PO SCH ×3 (08:42→15:58)
--- NOTE | 2018-11-30 10:55 | PRG ---
DATE OF SERVICE: 11/30/2018 SUBJECTIVE: Patient was seen and examined at bedside and overnight events noted. Patient denies any shortness of breath or chest pain or palpitation. No history of nausea or vomiting or diarrhea or fever or chills or cramps. OBJECTIVE: GENERAL: This is a well-built female, in no apparent distress. VITAL SIGNS: Temperature 98.4. Heart rate 62. Respiratory rate 16. Blood pressure 134/62. HEENT: Atraumatic, normocephalic. Oral mucosa is moist NECK: Supple. CARDIOVASCULAR: S1, S2 heard. Rate and rhythm regular. RESPIRATORY: Clear to auscultation. GASTROINTESTINAL: Abdomen is soft. MUSCULOSKELETAL: No tenderness. No edema. DERMATOLOGIC: No skin rash. NEUROLOGIC: Alert and awake and oriented X3. No focal neurologic deficits. Moving all the extremities. PSYCHIATRIC: Mood and affect normal. LABORATORY DATA: Potassium 3.7, BUN is 30, creatinine is 6.8. ASSESSMENT AND PLAN: 1. End-stage renal disease. Continue hemodialysis as tolerated Wednesday, Wednesday, and Wednesday. 2. Hypertension. 3. Anemia. 4. Edema. 5. The patient was seen during dialysis, tolerating well today. We will monitor. Job ID: [id number]
[2018-11-30] MEDS: Carvedilol 6.25 MG TAB PO SCH ×2 (11:11→20:45)
[2018-11-30] MEDS: Artificial Tear Sol 15 ML BOT EA EYE SCH ×2 (11:11→20:48)
[2018-11-30] MEDS: Folic Acid/Vit B Comp W-C PO SCH (11:11)
[2018-11-30] MEDS: Cinacalcet HCl 30 MG TAB PO SCH (11:11)
[2018-11-30] MEDS: levETIRAcetam 500 mg/5 ml Oral Solution PO SCH ×2 (11:12→20:45)
[2018-11-30] MEDS: Escitalopram Oxalate 10 mg Tablet PO SCH (11:18)
--- NOTE | 2018-11-30 19:06 | PDOC.CPN ---
- Subjective Date: 11/30/18 Time: 19:04 Interval history: No new issues. - Review of Systems ROS unobtainable: due to mental status - Objective Allergies/Adverse Reactions: Allergies Allergy/AdvReac Type Severity Reaction Status Date / Time Penicillins Allergy Unknown Verified 09/25/18 16:17 Visit Medications: Current Medications Acetaminophen (Tylenol) 650 mg PO Q4H PRN PRN Reason: Headache/Fever or Pain Last Admin: 11/27/18 21:30 Dose: 650 mg Al Hydroxide/Mg Hydroxide (Maalox) 30 ml PO Q6H PRN PRN Reason: Heartburn or Indigestion Artificial Tears (Liquitears 15ml Bottle) 1 drop EA EYE BID [facility] Last Admin: 11/30/18 11:11 Dose: 1 drop Carvedilol (Coreg) 6.25 mg PO BID [facility] Last Admin: 11/30/18 11:11 Dose: 6.25 mg Cinacalcet (Sensipar) 30 mg PO QAM [facility] Last Admin: 11/30/18 11:11 Dose: 30 mg Dextrose/Water (Dextrose 50%) 25 gm IVP PRN PRN PRN Reason: HYPOGLYCEMIA PROTOCOL Diltiazem HCl (Cardizem) 30 mg PO BID [facility] Escitalopram Oxalate (Lexapro) 10 mg PO QAM [facility] Last Admin: 11/30/18 11:18 Dose: 10 mg Glucagon (Glucagon) 1 mg IM PRN PRN PRN Reason: HYPOGLYCEMIA PROTOCOL Guaifenesin (Robitussin Sf) 200 mg PO Q4H PRN PRN Reason: Cough Dextrose/Water (D5w) 1,000 mls @ 0 mls/hr IV INF PRN PRN Reason: HYPOGLYCEMIA PROTOCOL Insulin Human Regular (Humulin R) 0 units SC .MILD SLIDING PRN; Protocol PRN Reason: MILD SLIDING SCALE Last Admin: 11/28/18 22:15 Dose: 3 unit Lactulose (Lactulose) 40 gm PO TID [facility] Last Admin: 11/30/18 14:05 Dose: 40 gm Levetiracetam (Keppra Oral Solution) 500 mg PO BID [facility] Last Admin: 11/30/18 11:12 Dose: 500 mg Memantine (Namenda) 5 mg PO BID [facility] Last Admin: 11/30/18 11:11 Dose: 5 mg Sevelamer Carbonate (Renvela) 2,400 mg PO TID[facility] Last Admin: 11/30/18 15:58 Dose: 2,400 mg Vitamin B Complex/Vit C/Folic Acid (Nephro-Nicolasa Tablet) 1 tab PO QAM [facility] Last Admin: 11/30/18 11:11 Dose: 1 tab Vital Signs & Weight: Vital Signs Temp Pulse Resp BP Pulse Ox 11/30/18 15:23 98.3 F 68 16 135/63 98 11/30/18 11:05 98.1 F 74 16 127/60 100 11/30/18 09:00 95 Weight 134 lb - Physical Exam General: no apparent distress HEENT: normocephaly Neck: supple neck, midline trachea Cardiac: regular rate and rhythm, no murmur Lungs: clear to auscultation, normal breath sounds Neuro: coordination normal Abdomen: active bowel sounds, soft, non-tender Skin: clear Musculoskeletal: normal range of motion, no pain - Labs Result Diagrams: 11/30/18 07:03 11/30/18 07:03 Troponin/CKMB CK-MB (CK-2) 1.6 ng/mL (0-6.6) 11/21/18 13:06 Troponin I 0.226 ng/mL (< 0.028) H 11/21/18 16:54 - Telemetry Sinus rhythms and dysrhythmias: sinus rhythm - Assessment/Plan Assessment/Plan: 1. Paroxysmal afib 2. CAD, stable. 3. Hepatic encophalopathy 4. ESRD on HD. 5. Seizure disorder. PLAN: - Continue BB only. - CV stable. - Will sign off. Please call with any questions.
[2018-11-30] MEDS: Acetaminophen 325 MG TAB PO PRN (20:48)
[2018-12-01] MEDS: Artificial Tear Sol 15 ML BOT EA EYE SCH (08:56)
[2018-12-01] MEDS: Carvedilol 6.25 MG TAB PO SCH (08:56)
[2018-12-01] MEDS: Sevelamer Carbonate 800 MG TAB PO SCH ×2 (08:56→11:52)
[2018-12-01] MEDS: Cinacalcet HCl 30 MG TAB PO SCH (08:56)
[2018-12-01] MEDS: levETIRAcetam 500 mg/5 ml Oral Solution PO SCH (08:57)
[2018-12-01] MEDS: Escitalopram Oxalate 10 mg Tablet PO SCH (08:57)
[2018-12-01] MEDS: Folic Acid/Vit B Comp W-C PO SCH (08:57)
[2018-12-01 11:41] VITALS: BP 123/58; TEMP 98.6
--- NOTE | 2018-12-01 15:27 | PRG ---
DATE OF SERVICE: 12/01/2018 SUBJECTIVE: Patient was seen and examined at bedside and overnight events noted. Patient denies any shortness of breath or chest pain or palpitation. No history of nausea or vomiting or diarrhea or fever or chills or cramps. OBJECTIVE: GENERAL: This is a well-built female, in no acute distress. VITAL SIGNS: Temperature 96. Heart rate 62. Respiratory rate 21. Blood pressure 123/58. HEENT: Atraumatic, normocephalic. Oral mucosa is moist NECK: Supple. CARDIOVASCULAR: S1, S2 heard. Rate and rhythm regular. RESPIRATORY: Clear to auscultation. GASTROINTESTINAL: Abdomen is soft. MUSCULOSKELETAL: No tenderness. No edema. DERMATOLOGIC: No skin rash. NEUROLOGIC: Alert and awake and oriented X3. No focal neurologic deficits. Moving all the extremities. PSYCHIATRIC: Mood and affect normal. LABORATORY DATA: Not done today. ASSESSMENT AND PLAN: 1. End-stage renal disease. Continue dialysis as tolerated. 2. Hypertension. 3. Anemia. Monitor hemoglobin. 4. Edema, controlled. Plan to continue on dialysis as tolerated. Job ID: [id number]
--- NOTE | 2018-12-03 12:29 | EKG ---
Test Reason : Blood Pressure : / mmHG Vent. Rate : 119 BPM Atrial Rate : 136 BPM P-R Int : 000 ms QRS Dur : 084 ms QT Int : 318 ms P-R-T Axes : 000 045 223 degrees QTc Int : 447 ms Atrial fibrillation with rapid ventricular response Marked ST abnormality, possible inferior subendocardial injury Abnormal ECG Confirmed by ABY MENG M.D. ([id number]), brands editor LIYA CASTELLANOS ([id number] on 12/03/2018 12:29:00 PM Referred By: Confirmed By:ABY MENG M.D.
--- NOTE | 2018-12-03 12:29 | EKG ---
Test Reason : Blood Pressure : / mmHG Vent. Rate : 087 BPM Atrial Rate : 087 BPM P-R Int : 168 ms QRS Dur : 096 ms QT Int : 394 ms P-R-T Axes : 054 007 116 degrees QTc Int : 474 ms Normal sinus rhythm Left ventricular hypertrophy with repolarization abnormality Abnormal ECG Confirmed by ABY MENG M.D. ([id number]), marketing editor LIYA CASTELLANOS ([id number] on 12/03/2018 12:28:57 PM Referred By: YUSRA Confirmed By:ABY MENG M.D.
== END 2018-12-01 13:26 | DRG 308 ==
LOC: ERS 12:12 → 2NO 17:11
PROVIDERS: ADMIT Internal Medicine; ATTEND Internal Medicine
PROC: 5A1D70Z Performance of Urinary Filtration, Intermittent, Less than 6 Hours Per Day (ICD-10-PCS; principal; 2018-11-30)
DX: I48.0 Paroxysmal atrial fibrillation (principal); N18.6 End stage renal disease; E72.20 Disorder of urea cycle metabolism, unspecified; I12.0 Hypertensive chronic kidney disease with stage 5 chronic kidney disease or end stage renal disease; F03.90 Unspecified dementia, unspecified severity, without behavioral disturbance, psychotic disturbance, mood disturbance, and anxiety; I95.9 Hypotension, unspecified; E11.22 Type 2 diabetes mellitus with diabetic chronic kidney disease; E11.65 Type 2 diabetes mellitus with hyperglycemia; K72.90 Hepatic failure, unspecified without coma; D63.1 Anemia in chronic kidney disease; I48.92 Unspecified atrial flutter; I25.10 Atherosclerotic heart disease of native coronary artery without angina pectoris; G43.909 Migraine, unspecified, not intractable, without status migrainosus; Z90.10 Acquired absence of unspecified breast and nipple; Z99.2 Dependence on renal dialysis; Z79.899 Other long term (current) drug therapy; Z87.891 Personal history of nicotine dependence
CPT/HCPCS: 36415; 36416; 51701; 70450; 71045; 80048; 80053; 81003; 81015; 82140; 82330; 82553; 82803; 84484; 85014; 85018; 85025; 87324; 87449; 90471; 90670; 90935; 93005; 93306; A4353; G0009; G0257; J1160; J1815; J3490; P9047